=== PATIENT | male | born 1950 | race Caucasian/White ===

== ENCOUNTER 2023-11-26 11:37 | Outpatient (REF) | payer MEDICARE, SELFPAY | END 2023-11-26 11:38 | disposition home or self-care (01) | LOC: HO.BBR 11:37 | PROVIDERS: PCP Nurse Practitioner Family; Visit Provider Urology | DX: D75.1 Secondary polycythemia (principal) | CPT/HCPCS: 85014; 85018; 99195 ==

== ENCOUNTER 2024-02-26 10:04 | Outpatient (REF) | payer MEDICARE, SELFPAY ==
--- OUTSIDE RECORDS SUMMARY | 2024-02-27 00:07 | XMS_ITS ---
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 Medications Medication SIG (Take, Route, Frequency, Duration) Notes Start Date End Date Status Ciclopirox Olamine 0.77 % 1 application Externally Twice a day for 30 days Active Clopidogrel Bisulfate 75 MG TAKE 1 TABLET BY MOUTH EVERY DAY Oral for 30 Days Activ e Atorvastatin Calcium 80 MG TAKE 1 TABLET BY MOUTH EVERY DAY Oral for 90 Days Activ e Valsartan 160 MG Oral for 90 Days Active Ciclopirox Olamine 0.77 % 1 application Externally Twice a day for 30 days Active Venlafaxine HCl ER 37.5 MG Oral for 30 Days Active Testosterone Cypionate 200 MG/ML Intramuscular for 30 Days Ac tive Donepezil HCl 5 MG Oral for 30 Days Active Social History Tobacco Use: Social History Observation Description Date Details (start date - stop date) Never Smoker NA - NA Tobacco Use/Smoking Question Answer Notes Are you a: nonsmoker Additional Findings: Tobacco Non-User Current no n-smoker Alcohol Screen Question Answer Notes Did you have a drink containing alcohol in the p ast year? No Points 0 Interpretation Negative Tobacco use other than smoking: Question Answer Notes Are you an other tobacco user? No Problems Problem Type SNOMED Code ICD Code Onset Dates Problem Status W/U Status Risk Notes Problem Atherosclerosis of [place] arteries of the extremities ([id number]) Atherosclerosis of [place] artery of both lower extremities, with unspecified presence of clinical manifestation (I70.203) Active confirmed Q7(A), Q8(2B), Q9(1B,2 C) Vital Signs Height 3pt72rx in 09/09/2023 Weight 255 lbs 09/09/2023 BMI 36.58 kg/m2 09/09/2023 Blood pressure systolic 130 mm Hg 09/09/19 Blood pressure diastolic 80 mm Hg 024 Procedures Procedure Date Ordered Date Performed Result Body Sit e 06502-DYWDQQZ NAIL, 6 OR MORE 09/09/2023 N/A 12155-Cxwa Destruction, 1-14 09/09/2023 N/A 75475-CCNO SKIN LESIONS, OVER 4 09/09/2023 N/A Encounters Encounter Location Date Provider Diagnosis [facility] [address] [place] [address] 09/09/2023 Mariluz Black Pain of toe of right foot M79.674 ; Onychomycosis B35.1 ; Pain of toe of left foot M79.675 ; Pain in right foot M79.671 ; Verruca B07.9 ; Tinea pedis of both feet B35.3 ; Atherosclerosis of [place] artery of both lower extremities, with unspecified presence of clinical manifestation I70.203 and Tinea unguium B35.1 Assessments Encounter Date Diagnosis (ICD Code) Assessment Notes Treatment Notes Treatment Clinical Notes Section Notes 09/09/2023 Pain of toe of right foot (ICD-10 - M79.674) 09/09/2023 Onychomycosis (ICD-10 - B35.1) 09/09/2023 Pain of toe of left foot (ICD-10 - M79.675) 09/09/2023 Pain in right foot (ICD-10 - M79.671) 09/09/2023 Verruca (ICD-10 - B07.9) 09/09/2023 Tinea pedis of both feet (ICD-10 - B35.3) 09/09/2023 Atherosclerosis of [place] artery of both lower extremities, with unspecified presence of clinical manifestation (ICD-10 - I70.203) 09/09/2023 Tinea unguium (ICD-10 - B35.1) Plan Of Treatment Pending Test Test Name Order Date 68763-HXEVBUV NAIL, 6 OR MORE 09/09/2023 17157-Evjj Destruction, 1-14 09/09/2023 01527-CSUC SKIN LESIONS, OVER 4 09/09/19 Next Appt Details Follow Up: prn, Reason: Provider Name:Mariluz Gomez , 04/09/2024 09:30:00 AM, [address] [place], [address], Procedure Notes * Category Sub-Category Detail Notes Wart Treatment Procedure Verrucae were de brided to pin-point bleeding margins with sterile 15 surgical blade, silver nitrate chemocautery applied, recomm. immune-boosting meds such as zinc, recomm. follow up with topical chemosurgical agents, Pt defers any other forms of tx (93427) , Debride Nail 6-10 Nail debridement Nail debridem ent performed extensively to reduce/remove overall nail length and girth, subungual debris, and necrotic tissue, by manual and electrical means with use of a nail nipper and/or dremel, to more viable healthy nail plate or bed tissue 6-10. Silver nitrate used for any petechial bleeding as necessary. Patient chooses, no pharmaceutical tx (80794) , Nail debridement performed extensively to reduce/remove overall nail length, girth, thickness, subungual debris, and necrotic tissue, by manual and electrical means through the use of a nail nipper and/or dremel, to more viable healthy nail plate or bed tissue 1-5. Silver nitrate used for any petechial bleeding as necessary. Patient chooses, no pharmaceutical tx (91127) Keratoma Treatment Parring or Cutting o f Benign Hyperkeratotic Lesion(s) 59295 ( More than 4 Lesions ) - The Benign hyperkeratotic lesions, as described above were pared, and/or cut utilizing a sterile 15 blade, tissue nippers, and/or dremel, Progress Notes * Avery BLEVINSDOB: [birth year] (73 yo M)Acc No.[id number]:09/09/2023 Progress Note Patient:?Avery Blveins Alec Provider:?Mariluz ADRIAN Gomez :1950???Age:73 Y???Sex:Male Mohan e:09/09/2023 Address:[address] [place] [address] [address] [place] Pcp:Julio Meneses NP Subjective: * Chief Complaints: * ???Skin ProblemAt Risk Footc arePainful Nail(s) aggrevated by shoes and causing difficulty standing/walking. * HPI: ???Painful Nails:?Pt States Last PCP Visit:?Date:?08/08/2023 ???Skin problems:?Nature:?scaling , redness.?Location:?B/L .?Duration:?, several months.?Course:?, improved , at 80 %.?Treatments:?, Medication (Ciclopirox Olamine 0.77 Cream) , admits intermittent adherence to recommended application.?At Risk footcare:?Pt States Last PCP Visit:?Date?08/08/2023 * ROS:?General/Constitutional:?Nausea?denies.?Vomiting?denies.?Hunger Thirst?denies.?Loss appetite?denies.?Chills?denies.?Fatigue?denies.?Fever?denies.?Night Sweats?denies.?Unexplained weight loss?denies.?Unexplained weight gain?denies.?HEENTM:?Dentures?denies.?Dizziness?denies.?Glasses/contacts?admits.?Retinopathy?de nies.?Blurred/double vision?denies.?TMJ?denies.?Discharge/drainage?denies.?Implants?denies.?Sore throat?denies.?Dental implants?denies.?Hard of hearing ?denies.?Difficulty chewing/swallowing/speaking?denies.?Nose bleeds?denies.?Sore mouth?denies.?Respiratory:?On Oxygen?denies.?Pneumonia/pleurisy?denies.?Bronchitis?denies.?Emphysema?denies.?C oughing?denies.?Cough blood?denies.?Shortness of breath?denies.?Wheezing?denies.?Cardiovascular:?Pacemaker?denies.?MVP?denies.?WPW?denies.?CHF?denies.?Heart attack?denies.?Septal defect?denies.?Rapid beat?denies.?Chest pain ?denies.?Atrial Fib.?denies.?Murmur/Palpitations?denies.?Gastrointestinal:?Hemorrhoids?denies.?Stomach/Abdominal pain?denies.?Dark blood stool?denies.?Irritable bowel ?denies.?Constipation?admits.?Diarrhea?denies.?Hematology:?Swelling?denies.?Clots?denies.?Varicose Veins?denies.?Bruising?denies.?Bleeding problem?denies.?Genitourinary:?Blood urine?denies.?Frequent/Painfu/urination/bladder control?denies.?Kidney stones?denies.?Infection (UTI)?denies.?Nephropathy?denies.?sex trans dis (STD)?denies.?Prostate?admits.?Musculoskeletal:?Hammertoes?admits.?Bunions?denies.?Back Pain?denies.?Muscle Cramps/ Resting?denies.?Muscle cramps / walking?denies.?Generalized aches and pains?admits.?Weakness?denies.?Integ.:?Pryor?denies.?Scars?denies.?Corns/calluses?admits.?Ingrown nails?admits.?Painful nails?admits.?Open Sores?denies.?Rashes?denies.?Neurologic:?Difficulty sleeping?denies.?Brain disorder?denies.?Numbness?denies.?Balance trouble?denies.?Confusion?denies.?Fainting/blackouts?denies.?Tingling?denies.?Tr emors?denies.? * Medical History:? * Surgical History:?back surge ry Stent x3 tonsillectomy colonoscopy * Hospitalization/Major Diagno stic Procedure:?[facility]- UTI 07/2023 * Family History:?Mother: dece ased, diagnosed with Unspecified essential hypertension, Other malignant neoplasm of unspecified site.?Father: .? * Social History:?Tobacco Use:?Tobacco Use/Smoking?Are you a:?nonsmoker ?Additional Findings: Tobacco Non-User?Current non-smoker ?Tobacco use other than smoking?Are you an other tobacco user??No ???Drugs/Alcohol:?Drugs?Have you used drugs other than those for medical reasons in the past 12 months??No ?Alcohol Screen?Did you have a drink containing alcohol in the past year??No ?Points?0 ?Interpretation?Negative ???Miscellaneous:?Caffeine: yes, 3-5 cups per day. ?Children: yes, 2. ?no Exercise. ?Marital status: . 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 * Medications:?TakingCiclopiro x Olamine 0.77 % Cream 1 application Externally Twice a dayValsartan 160 MG Tablet Oral Donepezil HCl 5 MG Tablet Oral Testosterone Cypionate 200 MG/ML Solution Intramuscular Venlafaxine HCl ER 37.5 MG Capsule Extended Release 24 Hour Oral Atorvastatin Calcium 80 MG Tablet TAKE 1 TABLET BY MOUTH EVERY DAY Oral Clopidogrel Bisulfate 75 MG Tablet TAKE 1 TABLET BY MOUTH EVERY DAY Oral Ciclopirox Olamine 0.77 % Cream 1 application Externally Twice a dayMedication List reviewed and reconciled with the patientTaking Ciclopirox Olamine 0.77 % Cream 1 application Externally Twice a dayTaking Valsartan 160 MG Tablet Oral Taking Donepezil HCl 5 MG Tablet Oral Taking Testosterone Cypionate 200 MG/ML Solution Intramuscular Taking Venlafaxine HCl ER 37.5 MG Capsule Extended Release 24 Hour Oral Taking Atorvastatin Calcium 80 MG Tablet TAKE 1 TABLET BY MOUTH EVERY DAY Oral Taking Clopidogrel Bisulfate 75 MG Tablet TAKE 1 TABLET BY MOUTH EVERY DAY Oral Taking Ciclopirox Olamine 0.77 % Cream 1 application Externally Twice a dayMedication List reviewed and reconciled with the patient * Allergies:?N.K.D.A.yes[Aller gies Verified] Objective: * Vitals:?Ht: 9je20hx, Wt:255, BMI:36.58, Shoe size: 11EEE, BP:130/80 mm Hg, Ht- cm: 177.8 cm, Wt-k.67 kg. * Examination: ???General Examination: ?GENERAL APPEARANCE:?Reveals a pleasant, alert, well nourished, well- developed, well hydrated individual, who demonstrates proper attention to hygiene/body habitus, and is in no acute distress, Pt serves as own historian for office visit today.?ORIENTED:?person, place, and time.?Dermatologic: ?SKIN FINDINGS:? Skin shows sign(s) of, erythema, scaling, in a moccasin fashion, no fissure(s) present, B/L , Skin exam reveals Keratotic lesion(s) located at, Heel(s), B/L, TA, T5, SUB MTH (s), 1, B/L.?VERRUCA:?Reveals a Single , multi-loculated , mosaically patterned, round, raised, flat-topped, petechial bleeding papule(s), with cauliflower appearance and interruption of skin lines, pain to lateral compression, and size estimated at 1 mm diameter , LEFT ,.?Vascular: ?DP PULSES:?, 1/4, B/L.?PT PULSES:? 0/4, B/L.?CAPILLARY FILL TIME:? delayed, all digits, B/L.?SKIN TEMPERTURE GRADIENT OF THE LOWER EXTERMITIES:? decreased, cool to cool, proximal to distal, B/L.?HAIR GROWTH/TEXTURE/ELASTICITY/TURGOR:? decreased, B/L.?PIGMENTATION:?rubrous , B/L.?EDEMA:?3/4 , non-pitting , B/L , Leg(s) , Ankle(s) , Foot.?CLAUDICATION:?denies, B/L.?REST PAIN:?denies, B/L.?Orthopedic: ?MUSCLE STRENGTH:?5/5 all groups in a symmetrical fashion, B/L.?Nails: ?NAILS are:?Elongated, overgrown, dystrophic, lytic, greater than 3mm thick, discolored and friable with crumbly malodorous subungual debris, with pain on palpation , TA , T1 , T3 , T4 , T5 , T7 , T6 ,?.?Neurological: ?SENSORY:?Neurological exam reveals intact sensorium, pain sensation normal, vibration sensation intact, pinprick sensation is normal in the lower extremities, Pt denies, anesthesia, burning, paresthesia, tingling, B/L.? Assessment: * Assessment: 1.?Pain of toe of right foot - M79.674?2.?Onychomycosis - B35.1 (Primary)?3.?Pain of toe of left foot - M79.675?4.?Pain in right foot - M79.671?5.?Verruca - B07.9?6.?Tinea pedis of both feet - B35.3, Acute problem, Uncomplicated (3),Rx drug management (4)?7.?Atherosclerosis of [place] artery of both lower extremities, with unspecified presence of clinical manifestation - I70.203?8.?Tinea unguium - B35.1? Plan: * Treatment: 2.?Verruca?Procedure: 81627-Hjpc Destruction, 1-14 3.?Atherosclerosis of [place] artery of both lower extremities, with unspecified presence of clinical manifestation?Procedure: 02477-CZYP SKIN LESIONS, OVER 4 * Procedures:?Debride Nail 6-10:?Nail debridement?Nail debridement performed extensively to reduce/remove overall nail length and girth, subungual debris, and necrotic tissue, by manual and electrical means with use of a nail nipper and/or dremel, to more viable healthy nail plate or bed tissue 6-10. Silver nitrate used for any petechial bleeding as necessary. Patient chooses, no pharmaceutical tx (39688) , Nail debridement performed extensively to reduce/remove overall nail length, girth, thickness, subungual debris, and necrotic tissue, by manual and electrical means through the use of a nail nipper and/or dremel, to more viable healthy nail plate or bed tissue 1-5. Silver nitrate used for any petechial bleeding as necessary. Patient chooses, no pharmaceutical tx (57964).?Keratoma Treatment:?Parring or Cutting of Benign Hyperkeratotic Lesion(s)?21396 ( More than 4 Lesions ) - The Benign hyperkeratotic lesions, as described above were pared, and/or cut utilizing a sterile 15 blade, tissue nippers, and/or dremel, ?.?Wart Treatment:?Procedure?Verrucae were debrided to pin-point bleeding margins with sterile 15 surgical blade, silver nitrate chemocautery applied, recomm. immune-boosting meds such as zinc, recomm. follow up with topical chemosurgical agents, Pt defers any other forms of tx (53408) , .? * Procedure Codes:?61600 DEBRI DE NAIL, 6 OR MORE, Modifiers: XS 88489 Wart Destruction, 1-14, Modifiers: XS 83350 TRIM SKIN LESIONS, OVER 4, Modifiers: Q8 * Preventive Medicine:? ??Counseling:?Discussion:?-12: Office or other outpatient visit for the evaluation and management of an established patient, which required a medically appropriate history and/or examination and STRAIGHTFORWARD level of MEDICAL DECISION MAKING, 1 SELF-LIMITED OR MINOR PROBLEM, MINIMAL- NO AMOUNT/COMPLEXITY OF DATA TO BE REVIEWED/ANALYZED, AND MINIMAL RISK OF COMPLICATION/MORBIDITY. The visit on the day of the encounter encompassed interpreting the data and educating the patient as to the nature of their condition, treatment options available according to their individual PMH, meds, allergies, and overall health/living conditions, as well as any potential risks or complications that may occur from a failure to adhere to, and participate in, the recommended course of therapy. The discussion included a complete verbal, and/or written explanation of the examination results, any x-rays taken, the proposed diagnosis, and outline of the treatment plan. A schedule for future care needs was also explained. The patient verbalized an understanding of the instructions at this time and agreed to be an active participant in their treatment. If the patient should think of any questions or concerns after the visit, I have encouraged the patient to call the office.?Tinea Pedis:?Given recent successful results to treatment, The patient is to cont the rx cream as directed.? * Follow Up:?prn * Images: * Sign off status: Completed true * Provider:?Mariluz Gomez DPM Date:?2023 Generated for Rubin lubin/Fazal/Jose L on:?02/27/2024 12:07 AM EST History and Physical Notes * HPI (History of Present Illness) Category Sub-Category Detail Notes Category Not es Painful Nails Pt States Last PCP Visit: Date:: 08/08/2023 Skin problems Nature: scaling , redness Location: B/L Duration: , several months Course: , improved , at 80 % Treatments: , Medication (Ciclop irox Olamine 0.77 Cream) , admits intermittent adherence to recommended application At Risk footcare Pt States Last PCP Visit: Date: Examination Category Sub-Category Detail Notes Category Not es Neurological SENSORY: Neurological exa m reveals intact sensorium, pain sensation normal, vibration sensation intact, pinprick sensation is normal in the lower extremities, Pt denies, anesthesia, burning, paresthesia, tingling, B/L Dermatologic SKIN FINDINGS: Skin shows sign( s) of, erythema, scaling, in a moccasin fashion, no fissure(s) present, B/L , Skin exam reveals Keratotic lesion(s) located at, Heel(s), B/L, TA, T5, SUB MTH (s), 1, B/L ULCER: VERRUCA: Reveals a Single , m ulti-loculated , mosaically patterned, round, raised, flat-topped, petechial bleeding papule(s), with cauliflower appearance and interruption of skin lines, pain to lateral compression, and size estimated at 1 mm diameter , LEFT , Orthopedic MUSCLE STRENGTH: 5/5 all groups in a symm etrical fashion, B/L General Examination GENERAL APPEARANCE: Reveals a pleasant, alert, well nourished, well-developed, well hydrated individual, who demonstrates proper attention to hygiene/body habitus, and is in no acute distress, Pt serves as own historian for office visit today ORIENTED: person, place, and t [place] Vascular DP PULSES(B): , 1/4, B/L PT PULSES(B): 0/4, B/L CAPILLARY FILL TIME: delayed, all digits , B/L TEMPERTURE GRADIENT(C): decreased, cool to cool, proximal to distal, B/L TROPHIC CONDITION-TEXTURE/ELASTICITY/TURGOR/HAIR GROWTH(B): decreased, B/L EDEMA(C): 3/4 , non-pitting , B/L , Leg(s) , Ankle(s) , Foot CLAUDICATION(C): denies, B/L REST PAIN: denies, B/L PIGMENTATION: rubrous , B/L Nails NAILS are: Elongated, overg rown, dystrophic, lytic, greater than 3mm thick, discolored and friable with crumbly malodorous subungual debris, with pain on palpation , TA , T1 , T3 , T4 , T5 , T7 , T6 ,
--- OUTSIDE RECORDS SUMMARY | 2024-02-27 00:07 | XMS_ITS ---
Author Organization [facility] Shayna Mcneill Address [address] [place] [address] Care Team Providers Care Distribution Specialist Name Role Phone Julio Meneses NP Primary Care Provider Unavailab connie Mariluz Gomez Unavailable [phone] Allergies No Known Allergies REASON FOR VISIT At Risk Footcare, Painful Nail(s) aggrevated by shoes and causing difficulty standing/walking., Skin problem(s) Medications Medication SIG (Take, Route, Frequency, Duration) Notes Start Date End Date Status Atorvastatin Calcium 80 MG TAKE 1 TABLET BY MOUTH EVERY DAY Oral for 90 Days Activ e Venlafaxine HCl ER 37.5 MG Oral for 30 Days Active Testosterone Cypionate 200 MG/ML Intramuscular for 30 Days Ac tive Ciclopirox Olamine 0.77 % 1 application Externally Twice a day for 30 days Active Clopidogrel Bisulfate 75 MG TAKE 1 TABLET BY MOUTH EVERY DAY Oral for 30 Days Activ e Donepezil HCl 5 MG Oral for 30 Days Active Valsartan 160 MG Oral for 90 Days Active Ciclopirox Olamine 0.77 % 1 application Externally Twice a day for 30 days Active Social History Tobacco Use: Social History Observation Description Date Details (start date - stop date) Never Smoker NA - NA Tobacco Use/Smoking Question Answer Notes Are you a: nonsmoker Additional Findings: Tobacco Non-User Current no n-smoker Alcohol Screen Question Answer Notes Did you have a drink contain ing alcohol in the past year? Yes How often did you have a dri nk containing alcohol in the past year? Monthly or less (1 point) Points 1 Interpretation Negative Tobacco use other than smoking: Question Answer Notes Are you an other tobacco user? No Vital Signs Height 5ft 10 in in 12/23/2023 Weight 265 lbs 12/23/2023 BMI 38.02 kg/m2 12/23/2023 Procedures Procedure Date Ordered Date Performed Result Body Sit e 61184-EWDNMLB NAIL, 6 OR MORE 12/23/2023 N/A 38407-Anwb Destruction, 1-14 12/23/2023 N/A 23346-LJWK SKIN LESIONS, OVER 4 12/23/2023 N/A Encounters Encounter Location Date Provider Diagnosis [facility] [address] [place] [address] 12/23/2023 Mariluz Gomez Onychomycosis B35.1 ; Verruca B07.9 ; Pain of toe of right foot M79.674 ; Pain of toe of left foot M79.675 ; Pain in right foot M79.671 and Atherosclerosis of big lag[place] artery of both lower extremities, with unspecified presence of clinical manifestation I70.203 Assessments Encounter Date Diagnosis (ICD Code) Assessment Notes Treatment Notes Treatment Clinical Notes Section Notes 12/23/2023 Onychomycosis (ICD-10 - B35.1) 12/23/2023 Verruca (ICD-10 - B07.9) 12/23/2023 Pain of toe of right foot (ICD-10 - M79.674) 12/23/2023 Pain of toe of left foot (ICD-10 - M79.675) 12/23/2023 Pain in right foot (ICD-10 - M79.671) 12/23/2023 Atherosclerosis of big lagoon artery of both lower extremities, with unspecified presence of clinical manifestation (ICD-10 - I70.203) Q7(A), Q8(2B), Q9(1B,2C) Plan Of Treatment Pending Test Test Name Order Date 88847-ZAYDEWF NAIL, 6 OR MORE 12/23/2023 48625-Qejr Destruction, 1-14 12/23/2023 11284-NIRR SKIN LESIONS, OVER 4 12/23/19 24 Next Appt Details Follow Up: prn, Reason: Provider Name:Mariluz Gomez , 04/09/2024 09:30:00 AM, [address] [place] [address], [phone], Procedure Notes * Category Sub-Category Detail Notes Wart Treatment Procedure Verrucae were de brided to pin-point bleeding margins with sterile 15 surgical blade, silver nitrate chemocautery applied, recomm. immune-boosting meds such as zinc, recomm. follow up with topical chemosurgical agents, Pt defers any other forms of tx (33008) , , CIRCULATION: Any more invasive procedure to wart deferred due to circulation risk Debride Nail 6-10 Nail debridement Performance o f this nail treatment by a nonprofessional would put this patients foot and overall health at risk. Therefore, nail debridement was performed extensively to reduce/remove overall nail length, girth, thickness, subungual debris, and necrotic tissue, by manual and/or electrical means through the use of a nail nipper and/or dremel-type head bone grinder, to a more viable healthy nail plate or bed tissue 6-10. Silver nitrate used for any petechial bleeding as necessary. Definitive antifungal treatment options have been reviewed and discussed with the patient. The patient chooses, no pharmaceutical tx - 78643 Keratoma Treatment Parring or Cutting o f Benign Hyperkeratotic Lesion(s) 50823 ( More than 4 Lesions ) - The Benign hyperkeratotic lesions, as described above were pared, and/or cut utilizing a sterile 15 blade, tissue nippers, and/or dremel, Progress Notes * GEN Avery AlecDOB: [birth year] (73 yo M)Acc No.[id number]:12/23/2023 Progress Note Patient:?Avery Fernandes Alec Provider:?Mariluz Gomez DPM :1950???Age:73 Y???Sex:Male Mohan e:12/23/2023 Address:[address] [place] [address] [address], [place] Pcp:Julio Meneses NP Subjective: * Chief Complaints: * ???At Risk FootcarePainful N ail(s) aggrevated by shoes and causing difficulty standing/walking.Skin problem(s) * HPI: ???Painful Nails:?Pt States Last PCP Visit:?Date:?08/08/2023 ???At Risk footcare:?Pt States Last PCP Visit:?Date?08/08/2023 * Medical History:? * Surgical History:?back surge [...] a drink containing alcohol in the past year??Yes ?How often did you have a drink containing alcohol in the past year??Monthly or less (1 point) ?Points?1 ?Interpretation?Negative ???Miscellaneous:?Caffeine: yes, 3-5 cups per day. [...] * Allergies:?N.K.D.A.yes[Aller gies Verified] Objective: * Vitals:?Ht: 5ft 10 in, Wt:26 5, BMI:38.02, Shoe size: 11EEE, Ht-cm: 177.8 cm, Wt- k.2 kg. * Examination: ???Dermatologic: ?SKIN FINDINGS:?Skin exam reveals Keratotic lesion(s) located at, Heel(s), B/L, TA, T5, SUB MTH (s), 1, B/L.?VERRUCA:?Reveals a Single , multi-loculated , mosaically patterned, round, raised, flat-topped, petechial bleeding papule(s), with cauliflower appearance and interruption of skin lines, less pain to lateral compression, and size estimated at 1 mm diameter , LEFT ,.?Vascular: ?DP PULSES(B):?, 1/4, B/L.?PT PULSES(B):? 0/4, B/L.?CAPILLARY FILL TIME:? delayed, all digits, B/L.?TROPHIC CONDITION-TEXTURE/ELASTICITY/TURGOR/HAIR GROWTH(B):? decreased, B/L.?TEMPERTURE GRADIENT(C):? decreased, cool to cool, proximal to distal, B/L.?PIGMENTATION:?rubrous , B/L.?EDEMA(C):?3/4 , non-pitting , B/L , Leg(s) , Ankle(s) , Foot.?CLAUDICATION(C):?denies, B/L.?REST PAIN:?denies, B/L.?Nails: ?NAILS are:?Elongated, overgrown, dystrophic, lytic, greater than 3mm thick, discolored and friable with crumbly malodorous subungual debris, with pain on palpation , , T1 , T3 , T4 , T7 , , T8, T6 .? Assessment: * Assessment: 1.?Verruca - B07.9 (Primary) ?2.?Onychomycosis - B35.1?3.?Pain of toe of right foot - M79.674?4.?Pain of toe of left foot - M79.675?5.?Pain in right foot - M79.671?6.?Atherosclerosis of big lagoon artery of both lower extremities, with unspecified presence of clinical manifestation - I70.203, Q7(A), Q8(2B), Q9(1B,2C)? Plan: * Treatment: 2.?Onychomycosis?Procedure: 27695-YJHXJCA NAIL, 6 OR MORE 3.?Atherosclerosis of big lagoon artery of both lower extremities, with unspecified presence of clinical manifestation?Procedure: 57422-XZYG SKIN LESIONS, OVER 4 * Procedures:?Debride Nail 6-10:?Nail debridement?Performance of this nail treatment by a nonprofessional would put this patients foot and overall health at risk. Therefore, nail debridement was performed extensively to reduce/remove overall nail length, girth, thickness, subungual debris, and necrotic tissue, by manual and/or electrical means through the use of a nail nipper and/or dremel-type head bone grinder, to a more viable healthy nail plate or bed tissue 6-10. Silver nitrate used for any petechial bleeding as necessary. Definitive antifungal treatment options have been reviewed and discussed with the patient. The patient chooses, no pharmaceutical tx - 95475.?Keratoma Treatment:?Parring or Cutting of Benign Hyperkeratotic Lesion(s)?64635 ( More than 4 Lesions ) - [...] Pt defers any other forms of tx (40390) , , CIRCULATION: Any more invasive procedure to wart deferred due to circulation risk.? * Procedure Codes:?78956 DEBRI DE NAIL, 6 OR MORE, Modifiers: XS 92648 Wart Destruction, 1-14, Modifiers: XS 88508 TRIM SKIN LESIONS, OVER 4, Modifiers: Q8 * Follow Up:?prn * Images: * Sign off status: Completed true * Provider:?Mariluz Gomez DPM Date:?2023 Generated for Rubin lubin/Fazal/Joanitting on:?02/27/2024 12:07 AM EST History and Physical Notes * HPI (History of Present Illness) Category Sub-Category Detail Notes Category Not es Painful Nails Pt States Last PCP Visit: Date:: 08/08/2023 At Risk footcare Pt States Last PCP Visit: Date: Examination Category Sub-Category Detail Notes Category Not es Dermatologic SKIN FINDINGS: Skin exam reveal s Keratotic lesion(s) located at, Heel(s), B/L, TA, T5, SUB MTH (s), 1, B/L ULCER: VERRUCA: Reveals a Single , m ulti-loculated , mosaically patterned, round, raised, flat-topped, petechial bleeding papule(s), with cauliflower appearance and interruption of skin lines, less pain to lateral compression, and size estimated at 1 mm diameter , LEFT , Vascular DP PULSES(B): , 1/4, B/L PT [...] subungual debris, with pain on palpation , , T1 , T3 , T4 , T7 , , T8, T6
--- OUTSIDE RECORDS SUMMARY | 2024-02-27 00:07 | XMS_ITS ---
Author Organization [facility] Shayna Mcneill Address [address] [place] [address] Care Team Providers Care Children'S Program Coordinator Name Role Phone Julio Meneses NP Primary Care Provider Unavailab connie Mariluz Gomez Unavailable [phone] Allergies No Known Allergies REASON FOR VISIT Painful nail(s) aggrevated by shoes causing difficulty standing/walking, Skin Problem Medications Medication SIG (Take, Route, Frequency, Duration) Notes Start Date End Date Status Atorvastatin Calcium 80 MG TAKE 1 TABLET BY MOUTH EVERY DAY Oral for 90 Days Activ e Clopidogrel Bisulfate 75 MG TAKE 1 TABLET BY MOUTH EVERY DAY Oral for 30 Days Activ e Valsartan 160 MG Oral for 90 Days Active Ciclopirox Olamine 0.77 % 1 application Externally Twice a day for 30 days Active Ciclopirox Olamine 0.77 % 1 application Externally Twice a day for 30 days Active Testosterone Cypionate 200 MG/ML Intramuscular for 30 Days Ac tive Donepezil HCl 5 MG Oral for 30 Days Active Venlafaxine HCl ER 37.5 MG Oral for 30 Days Active Social [...] tobacco user? No Vital Signs Height 5ft 9in in 05/27/2023 Weight 250 lbs 05/27/2023 BMI 36.91 kg/m2 05/27/2023 Procedures Procedure Date Ordered Date Performed Result Body Sit e 43149-HYFDLDI NAIL, 6 OR MORE 05/27/2023 N/A 75850-Inhd Destruction, 1-14 05/27/2023 N/A Encounters Encounter Location Date Provider Diagnosis [facility] [address] [address] 05/27/2023 Mariluz Gomez Pain of toe of right foot M79.674 ; Onychomycosis B35.1 ; Pain of toe of left foot M79.675 ; Pain in right foot M79.671 ; Verruca B07.9 and Tinea pedis of both feet B35.3 Assessments Encounter Date Diagnosis (ICD Code) Assessment Notes Treatment Notes Treatment Clinical Notes Section Notes 05/27/2023 Pain of toe of right foot (ICD-10 - M79.674) 05/27/2023 Onychomycosis (ICD-10 - B35.1) 05/27/2023 Pain of toe of left foot (ICD-10 - M79.675) 05/27/2023 Pain in right foot (ICD-10 - M79.671) 05/27/2023 Verruca (ICD-10 - B07.9) 05/27/2023 Tinea pedis of both feet (ICD-10 - B35.3) Plan Of Treatment Medication Medication Name Sig Start Date Stop Date Notes Ciclopirox Olamine 0.77 % 1 application Externally Twice a day for 30 days Pending Test Test Name Order Date [id number]-QPAEAWT NAIL, 6 OR MORE 05/27/2023 07382-Oowe Destruction, 1-14 05/27/2023 Next Appt Details Follow Up: prn, Reason: Provider Name:Mariluz Gomez , 04/09/2024 09:30:00 AM, [address] [place] [address], [phone], Procedure Notes * Category Sub-Category Detail Notes Wart Treatment Procedure Verrucae were de brided to pin-point bleeding margins with sterile 15 surgical blade, silver nitrate chemocautery applied, recomm. immune-boosting meds such as zinc, recomm. follow up with topical chemosurgical agents, Pt defers any other forms of tx (35209) , Debride Nail 6-10 Nail debridement Nail debridem ent performed extensively to reduce/remove overall nail length and girth, subungual debris, and necrotic tissue, by manual and electrical means with use of a nail nipper and/or dremel, to more viable healthy nail plate or bed tissue 6-10. Silver nitrate used for any petechial bleeding as necessary. Patient chooses, no pharmaceutical tx (82936) Progress Notes * Avery BLEVINSDOB: [birth year] (73 yo M)Acc No.[id number]:05/27/2023 Progress Note Patient:?Avery Blevins Provider:?Mariluz Gomez DPM :1950???Age:73 Y???Sex:Male Mohan e:05/27/2023 Address:[address] [place] [address], [facility], [id number] Pcp:Julio Meneses NP Subjective: * Chief Complaints: * ???Painful nail(s) aggrevate d by shoes causing difficulty standing/walkingSkin Problem * HPI: ???Painful Nails:?Pt States Last PCP Visit:?Date:?03/04/2023 ???Skin problems:?Nature:?scaling , redness.?Location:?B/L .?Duration:?several days.?Course:?worse.?Treatments:?none.? * ROS:?General/Constitutional:?Nausea?denies.?Vomiting?denies.?Hunger Thirst?denies.?Loss appetite?denies.?Chills?denies.?Fatigue?denies.?Fever?denies.?Night Sweats?denies.?Unexplained weight loss?denies.?Unexplained [...] x3 tonsillectomy colonoscopy * Hospitalization/Major Diagno stic Procedure:?Denies Past Hospitalization * Family History:?Mother: dece ased, diagnosed with [...] 1 TABLET BY MOUTH EVERY DAY Oral Medication List reviewed and reconciled with the patientTaking [...] 1 TABLET BY MOUTH EVERY DAY Oral Medication List reviewed and reconciled with the patient * Allergies:?N.K.D.A.yes[Aller gies Verified] Objective: * Vitals:?Ht: 5ft 9in, Wt:250, BMI:36.91, Shoe size:11EEE. * Examination: ???Nails: ?NAILS are:?Elongated, overgrown, dystrophic, lytic, greater than 3mm thick, discolored and friable with crumbly malodorous subungual debris, with pain on palpation , TA , T1 , T3 , T4 , T5 , T7 , T6.?Dermatologic: ?SKIN FINDINGS:? Skin shows sign(s) of, erythema, scaling, in a moccasin fashion, no fissure(s) present, B/L.?VERRUCA:?Reveals a Single , multi-loculated , mosaically patterned, round, raised, flat-topped, petechial bleeding papule(s), with cauliflower appearance and interruption of skin lines, pain to lateral compression, and size estimated at 2 mm diameter , LEFT ,.? Assessment: * Assessment: 1.?Pain of toe of right foot - M79.674?2.?Onychomycosis - B35.1 (Primary)?3.?Pain of toe of left foot - M79.675?4.?Pain in right foot - M79.671?5.?Verruca - B07.9?6.?Tinea pedis of both feet - B35.3, Acute problem, Uncomplicated (3),Rx drug management (4)? Plan: * Treatment: 2.?Verruca?Procedure: 44129-Mehy Destruction, 1-14 3.?Tinea pedis of both feet? Start Ciclopirox Olamine Cream, 0.77 %, 1 application, Externally, Twice a day, 30 days, 60, Refills 2.?? * Procedures:?Debride Nail 6-10:?Nail debridement?Nail debridement performed extensively to reduce/remove overall nail length and girth, subungual debris, and necrotic tissue, by manual and electrical means with use of a nail nipper and/or dremel, to more viable healthy nail plate or bed tissue 6-10. Silver nitrate used for any petechial bleeding as necessary. Patient chooses, no pharmaceutical tx (82095).?Wart Treatment:?Procedure?Verrucae were debrided to pin-point bleeding margins with sterile 15 surgical blade, silver nitrate chemocautery applied, recomm. immune-boosting meds such as zinc, recomm. follow up with topical chemosurgical agents, Pt defers any other forms of tx (75724) , .? * Procedure Codes:?36021 DEBRI DE NAIL, 6 OR MORE, Modifiers: XS 03986 Wart Destruction, -14, Modifiers: XS * Preventive Medicine:? ??Counseling:?Discussion:?-13: Office or other outpatient visit for the evaluation and management of an established patient, which required a medically appropriate history and/or examination and LOW level of DECISION MAKING for: 1 STABLE ACUTE UNCOMPLICATED PROBLEM, 2 OR MORE MINOR PROBLEMS, OR 1 STABLE CHRONIC PROBLEM, THAT POSE(S) A LOW RISK FOR MORBIDITY/MORTALITY. The visit on the day of the [...] encouraged the patient to call the office.?Tinea Pedis:?The patient was counseled on the diagnosis, potential etiologies, and treatment options for their skin condition. We discussed the risks and benefits of each option from performing no treatment, to utilizing OTC topical skin creams, prescription topical creams, customized compounded topical medications, and, if necessary, to utilize oral antifungal therapy. We discussed the advantages and disadvantages of each possible treatment and importance for adherence to all the recommended therapies for optimum success and avoid potential complications such as open sore/infection/possible hospitalization. We discussed the potential effectiveness of each topical preparation as well as each ones possible side effects and/or patient medication interactions if oral therapy is selected. Patient questions re: the advantages and disadvantages of each treatment choice, medication use/dosage, successful outcomes, and application consistency were reviewed and the patient verbalized that all answers were clearly understood. The patient was told they can help alleviate symptoms by utilizing moisture absorbant innersoles with activated charcoal and baking soda, applying antifungal sprays daily, aerating toe web spaces at night by putting cotton or lambs wool between the toes, alternating shoe gear daily if possible so they can dry out, changing socks at least once during the day, wearing well-ventilated shoes or sandals. The patient has decided to apply antifungal skin creams to their feet as directed. Rx was sent to their pharmacy at the time of visit.? * Follow Up:?prn * Images: * Sign off status: Completed true * Provider:?Mariluz Gomez DPM Date:?2023 Generated for Rubin lubin/Fazal/Jose L on:?02/27/2024 12:07 AM EST History and Physical Notes * HPI (History of Present Illness) Category Sub-Category Detail Notes Category Not es Painful Nails Pt States Last PCP Visit: Date:: 03/04/2023 Skin problems Nature: scaling , redness Location: B/L Duration: several days Course: worse Treatments: none Examination Category Sub-Category Detail Notes Category Not es Dermatologic SKIN FINDINGS: Skin shows sign( s) of, erythema, scaling, in a moccasin fashion, no fissure(s) present, B/L ULCER: VERRUCA: Reveals a Single , m ulti-loculated , mosaically patterned, round, raised, flat-topped, petechial bleeding papule(s), with cauliflower appearance and interruption of skin lines, pain to lateral compression, and size estimated at 2 mm diameter , LEFT , Nails NAILS are: Elongated, overg rown, dystrophic, lytic, greater than 3mm thick, discolored and friable with crumbly malodorous subungual debris, with pain on palpation , TA , T1 , T3 , T4 , T5 , T7 , T6
--- OUTSIDE RECORDS SUMMARY | 2024-02-27 00:08 | XMS_ITS | Patient Health Record ---
Author Organization [facility] Beléntyra Mcneill Address [address] [place] [address] Care Team Providers Care Stone Hand Name Role Phone Julio Meneses NP Primary Care Provider Unavailab connie Mariluz Gomez Unavailable [phone] Allergies No Known Allergies Reason For Referral No Information Medications Medication SIG (Take, Route, Frequency, Duration) Notes Start Date End Date Status Atorvastatin Calcium 80 MG TAKE 1 TABLET BY MOUTH EVERY DAY Oral for 90 Days Activ e Venlafaxine HCl ER 37.5 MG Oral for 30 Days Active Testosterone Cypionate 200 MG/ML Intramuscular for 30 Days Ac tive Donepezil HCl 5 MG Oral for 30 Days Active Ciclopirox Olamine 0.77 % 1 [...] Problem Status W/U Status Risk Notes Problem Plantar wart (25145720) Plantar wart (B07.0) Active confirmed Problem Atherosclerosis of barrow arteries of the extremities (242314541724876) Atherosclerosis of barrow artery of both lower extremities, with unspecified presence of clinical manifestation (I70.203) Active confirmed Q7(A), Q8(2B), Q9(1B,2 C) Problem 28202650907426397 Ulcer of left midfoot limited to breakdown of skin (L97.421) Active confirmed Vital Signs Blood pressure diastolic 80 mm Hg 09/09/2023 Height 5ft 10 in in 12/23/2023 Blood pressure systolic 130 mm Hg 09/09/2023 Weight 265 lbs 12/23/2023 BMI 38.02 kg/m2 12/23/2023 Procedures Procedure Date Ordered Date Performed Result Body Sit e 97937-MRLDIUU NAIL, 6 OR MORE 05/27/2023 N/A 65580-Hzfq Destruction, 1-14 05/27/2023 N/A 91014-VQETGJA NAIL, 6 OR MORE 09/09/2023 N/A 89677-Cafc Destruction, 1-14 09/09/2023 N/A 96603-WRIZ SKIN LESIONS, OVER 4 09/09/2023 N/A 02546-SFYRHHC NAIL, 6 OR MORE 12/23/2023 N/A 64079-Wazl Destruction, 1-14 12/23/2023 N/A 53914-QIVI SKIN LESIONS, OVER 4 12/23/2023 N/A Encounters Encounter Location Date Provider Diagnosis [facility] [address] [address] 05/27/2023 Mariluz Black Pain of toe of right foot M79.674 ; Onychomycosis B35.1 ; Pain of toe of left foot M79.675 ; Pain in right foot M79.671 ; Verruca B07.9 and Tinea pedis of both feet B35.[address] [facility] [address] 09/09/2023 Mariluz Black Pain of toe of right foot M79.674 ; Onychomycosis B35.1 ; Pain of toe of left foot M79.675 ; Pain in right foot M79.671 ; Verruca B07.9 ; Tinea pedis of both feet B35.3 ; Atherosclerosis of barrow artery of both lower extremities, with unspecified presence of clinical manifestation I70.203 and Tinea unguium B35.1 [facility] [place] [place] [address] 12/23/2023 Mariluz Black Onychomycosis B35.1 ; Verruca B07.9 ; Pain of toe of right foot M79.674 ; Pain of toe of left foot M79.675 ; Pain in right foot M79.671 and Atherosclerosis of barrow artery of both lower extremities, with unspecified presence of clinical manifestation I70.203 Assessments Encounter Date Diagnosis (ICD Code) Assessment Notes Treatment Notes Treatment Clinical Notes Section Notes 05/27/2023 Pain of toe of right foot (ICD-10 - M79.674) 09/09/2023 Pain of toe of right foot (ICD-10 - M79.674) 12/23/2023 Verruca (ICD-10 - B07.9) 12/23/2023 Onychomycosis (ICD-10 - B35.1) 12/23/2023 Pain of toe of right foot (ICD-10 - M79.674) 09/09/2023 Onychomycosis (ICD-10 - B35.1) 05/27/2023 Onychomycosis (ICD-10 - B35.1) 05/27/2023 Pain of toe of left foot (ICD-10 - M79.675) 09/09/2023 Pain of toe of left foot (ICD-10 - M79.675) 05/27/2023 Pain in right foot (ICD-10 - M79.671) 09/09/2023 Pain in right foot (ICD-10 - M79.671) 12/23/2023 Pain of toe of left foot (ICD-10 - M79.675) 12/23/2023 Pain in right foot (ICD-10 - M79.671) 09/09/2023 Verruca (ICD-10 - B07.9) 05/27/2023 Verruca (ICD-10 - B07.9) 05/27/2023 Tinea pedis of both feet (ICD-10 - B35.3) 09/09/2023 Tinea pedis of both feet (ICD-10 - B35.3) 12/23/2023 Atherosclerosis of barrow artery of both lower extremities, with unspecified presence of clinical manifestation (ICD-10 - I70.203) Q7(A), Q8(2B), Q9(1B,2C) 09/09/2023 Atherosclerosis of barrow artery of both lower extremities, with unspecified presence of clinical manifestation (ICD-10 - I70.203) 09/09/2023 Tinea unguium (ICD-10 - B35.1) Plan Of Treatment Pending Test Test Name Order Date 22469-QXKMSRB NAIL, 6 OR MORE 11/08/2022 30683-OPCPFCZ NAIL, 6 OR MORE 02/14/2023 15896-PYAKAIB NAIL, 6 OR MORE 05/27/2023 26719-WFLLLSF NAIL, 6 OR MORE 09/09/2023 32944-VMFBVRM NAIL, 6 OR MORE 12/23/2023 87356-Iwkb Destruction, 1-14 09/09/2023 61428-Wpkw Destruction, 1-14 12/23/2023 83876-Eney Destruction, 1-14 05/27/2023 98192-Ntdi Destruction, 1-14 11/08/2022 28737-Jorn Destruction, 1-14 02/14/2023 01931-ANEZ SKIN LESIONS, OVER 4 12/23/19 22037-OFIH SKIN LESIONS, OVER 4 09/09/19 Next Appt Details Provider Name:Mariluz Gomez , 04/09/2024 09:30:00 AM, [address] [place] [address], [phone], Insurance Providers Payer Name Payer Address Payer Phone Subscriber Number Group Number Insured Name Patient Relationship to Insured Coverage Start Date Coverage End Date Medicare [employer] [address] [place] [address] [id number] Avery Fernandes Self - patient is the insured [employer] [address] [place] [address] [id number] Avery Fernandes Self - patient is the insured Medical (General) History Medical History History ICD Code Cancer Depression High blood pressure Polymyalgia rheumatica Surgical History Surgery Date(Month/Year) back surgery Stent x3 tonsillectomy colonoscopy Hospitalization History Reason Date(Month/Year) [facility]- UTI 07/2023
--- OUTSIDE RECORDS SUMMARY | 2024-02-27 00:08 | XMS_ITS | Clinical Summary ---
Author Organization Unknown Care Team Providers Care Engineering Technical Specialist Name Role Phone TATIANA DEMOLITION ENGINEER, JONATHAN Unavailable Unavailable AMY RN, IFTIKHAR Unavailable Unavailable CLOONAAlyssa CANT GANG SAWYER, CAROLINA Unavailable Unavailable MICHAEL PT, RUBIN Unavailable Unavailable JONES SHELL FREEZING MACHINE OPERATOR, CHI Unavailable Unavailable [place]FF[place] OT, BOO Unavailable Unavailable [facility], [place] Unavailable Unavailable Payers Payer Name Policy Type Policy Number Effective Date Expira tion Date MEDICARE.NGS.PDGM [id number] Problems Condition Name Condition Details Condition Category Status Onset Date Resolution Date Last Treatment Date Treating Clinician Comments URINARY TRACT INFECTION, SITE NOT SPECIFIED Active 07-04 00:00: 00 METABOLIC ENCEPHALOPAT HY Active 07-04 00:00: 00 MILD COGNITIVE IMPAIRMENT OF UNCERTAIN OR UNKNOWN ETIOLOGY Active 07-04 00:00: 00 ATHSCL HEART DISEASE OF [place] CORONARY ARTERY W/O ANG PCTRS Active 03-18 00:00: 00 ESSENTIAL (PRIMARY) HYPERTENSION Active 03-18 00:00: 00 ANXIETY DISORDER, UNSPECIFIED Active 03-18 00:00: 00 DEPRESSION, UNSPECIFIED Active 03-18 00:00: 00 OBSTRUCTIVE SLEEP APNEA (ADULT) (PEDIATRIC) Active 03-18 00:00: 00 TESTICULAR HYPOFUNCTION Active 03-18 00:00: 00 MORBID (SEVERE) OBESITY DUE TO EXCESS CALORIES Active 03-18 00:00: 00 HYPERLIPIDEM IA, UNSPECIFIED Active 03-18 00:00: 00 HISTORY OF FALLING Active 03-18 00:00: 00 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 (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) USE OF ANTITHROMBOT ICS/ANTIPLAT ELETS Active 03-18 00:00: 00 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 ANALYST (CURRENT) USE OF OPIATE ANALGESIC Active 03-18 00:00: 00 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 ANALYST (CURRENT) USE OF ANTIBIOTICS Active 03-18 00:00: 00 PRSNL HX OF TIA (TIA), AND CEREB INFRC W/O RESID DEFICITS Active 03-18 00:00: 00 BODY MASS INDEX [BMI] 35.0-35.9, ADULT Active 03-18 00:00: 00 PERSONAL HISTORY OF MALIGNANT NEOPLASM OF PROSTATE Active 03-18 00:00: 00 ACQUIRED ABSENCE OF OTHER GENITAL ORGAN(S) Active 03-18 00:00: 00 PRESENCE OF CORONARY ANGIOPLASTY IMPLANT AND GRAFT Active 03-18 00:00: 00 ACQUIRED ABSENCE OF OTHER SPECIFIED PARTS OF DIGESTIVE TRACT Active 03-18 00:00: 00 Allergies, Adverse Reactions, Alerts Allergy Name Allergy Type Status Severity Reaction(s) Onset Date Inactive Date Treating Clinician Comments NO KNOWN ALLERGIES Propensity to adverse reactions Active 07-02 11:38: 10 Medications Ordered Medication Name Filled Medication Name Start Date Stop Date Current Medication? Ordering Clinician Indication Dosage Frequency Signature (SIG) Comments Components amlodipine 10 mg tablet 06-18 00:00: 00 Yes [id number] HTN 1 tablet DAILY 1 tablet DAILY (route: oral) Med Classific ation: Cardiovas cular Therapy Agents donepezil 5 mg tablet 06-17 00:00: 00 07-04 00:00 :00 No [id number] Per instruc tions EVERYDAY AT BEDTIME Per instructio ns EVERYDAY AT BEDTIME (route: oral) Med Classific ation: Cognitive Disorder Therapy trazodone 50 mg tablet 06-17 00:00: 00 Yes [id number] SLEEP 1 tablet BEDTIME 1 tablet BEDTIME (route: oral) Med Classific ation: Central Nervous System Agents metoprolol succinate ER 25 mg tablet,exte nded release 24 hr 06-06 00:00: 00 Yes [id number] HTN 1 tablet EVERY DAY 1 tablet EVERY DAY (route: oral) Med Classific ation: Cardiovas cular Therapy Agents valsartan 160 mg tablet 06-06 00:00: 00 Yes [id number] HTN 1 tablet BEDTIME 1 tablet BEDTIME (route: oral) Med Classific ation: Cardiovas cular Therapy Agents venlafaxine 37.5 mg tablet 06-04 00:00: 00 07-04 00:00 :00 No [id number] Per instruc tions TWICE A DAY AFTER 1 WEEK DAILY Per instructio ns TWICE A DAY AFTER 1 WEEK DAILY (route: oral) Med Classific ation: Central Nervous System Agents clopidogrel 75 mg tablet 06-02 00:00: 00 Yes [id number] THROMBOSIS PROPHYLAXIS 1 tablet EVERY DAY 1 tablet EVERY DAY (route: oral) Med Classific ation: Hematolog ical Agents acetaminoph en 325 mg tablet 07-04 00:00: 00 Yes [id number] PAIN 2 tablet EVERY 4 HOURS 2 tablet EVERY 4 HOURS (route: oral) Med Classific ation: Analgesic , Anti-infl ammatory or Antipyret ic atorvastati n 80 mg tablet 07-04 00:00: 00 Yes [id number] HYPERLIPIDE MEENA 1 tablet BEDTIME 1 tablet BEDTIME (route: oral) Med Classific ation: Cardiovas cular Therapy Agents ciclopirox 0.77 % topical cream 07-04 00:00: 00 Yes [id number] ITCHY FEET 1 inch 2 TIMES DAILY 1 inch 2 TIMES DAILY (route: topical) Med Classific ation: Dermatolo gical Cranberry TABLET 1 07-04 00:00: 00 Yes [id number] PREVENT UTI 450 mg DAILY 450 mg DAILY (route: BY MOUTH) Med Classific ation: MISCELLAN EOUS HERBS AND SUPPLEMEN TS Depo-Testos terone 200 mg/mL intramuscul ar oil 07-04 00:00: 00 Yes [id number] HYPOGONADIM 0.75 mL DIRECTED 0.75 mL DIRECTED (route: intramuscu lar) Med Classific ation: Endocrine donepezil 10 mg tablet 07-04 00:00: 00 Yes [id number] DEPRESSION 1 tablet BEDTIME 1 tablet BEDTIME (route: oral) Med Classific ation: Cognitive Disorder Therapy sulfamethox azole 800 mg-trimetho prim 160 mg tablet 07-04 00:00: 00 07-06 23:59 :00 No [id number] UTI 1 tablet DAILY 1 tablet DAILY (route: oral) Med Classific ation: Anti-Infe ctive Agents venlafaxine ER 150 mg capsule,ext ended release 24 hr 07-04 00:00: 00 Yes [id number] DEPRESSION 1 capsule DAILY 1 capsule DAILY (route: oral) Med Classific ation: Central Nervous System Agents bupropion HCl 75 mg tablet 08-15 00:00: 00 Yes [id number] ANTIDEPRESS ANT Per instruc tions DAILY Per instructio ns DAILY (route: oral) Med Classific ation: Central Nervous System Agents Vital Signs Vital Name Observation Time Observation Value Commen ts Temperature 2023-08-30 09:10:00.000 97.6 [degF] Temperature 2023-08-23 09:10:00.000 97.6 [degF] Temperature 2023-08-16 14:25:00.000 97.6 [degF] Temperature 2023-08-13 12:32:00.000 98 [degF] Temperature 2023-08-13 11:13:00.000 97.5 [degF] Temperature 2023-08-09 09:48:00.000 97.9 [degF] Temperature 2023-08-02 09:20:00.000 97.6 [degF] Temperature 2023-07-31 13:27:00.000 97.7 [degF] Temperature 2023-07-30 08:23:00.000 97.6 [degF] Temperature 2023-07-26 11:57:00.000 97.2 [degF] Temperature 2023-07-26 09:50:00.000 97.8 [degF] Temperature 2023-07-24 12:13:00.000 97.7 [degF] Temperature 2023-07-22 09:56:00.000 97.9 [degF] Temperature 2023-07-19 11:40:00.000 97.7 [degF] Temperature 2023-07-19 09:13:00.000 98 [degF] Temperature 2023-07-18 15:01:00.000 97.1 [degF] Temperature 2023-07-15 11:23:00.000 97.1 [degF] Temperature 2023-07-12 11:50:00.000 97.2 [degF] Temperature 2023-07-12 09:02:00.000 97.9 [degF] Temperature 2023-07-09 11:31:00.000 98.6 [degF] Temperature 2023-07-08 08:38:00.000 97.2 [degF] Temperature 2023-07-05 12:35:00.000 96.5 [degF] BMI (%) 2023-07-05 12:35:00.000 37 kg/m2 Height 2023-07-05 12:35:00.000 69 [in_us] Pulse 2023-08-30 09:10:00.000 82 /min Pulse 2023-08-23 09:10:00.000 65 /min Pulse 2023-08-16 14:25:00.000 77 /min Pulse 2023-08-13 12:32:00.000 79 /min Pulse 2023-08-13 11:13:00.000 90 /min Pulse 2023-08-09 09:48:00.000 71 /min Pulse 2023-08-02 09:20:00.000 80 /min Pulse 2023-07-31 13:27:00.000 83 /min Pulse 2023-07-30 08:23:00.000 78 /min Pulse 2023-07-26 11:57:00.000 74 /min Pulse 2023-07-26 09:50:00.000 92 /min Pulse 2023-07-24 12:13:00.000 74 /min Pulse 2023-07-22 09:56:00.000 80 /min Pulse 2023-07-19 11:40:00.000 74 /min Pulse 2023-07-19 09:13:00.000 63 /min Pulse 2023-07-18 15:01:00.000 96 /min Pulse 2023-07-15 11:23:00.000 71 /min Pulse 2023-07-12 11:50:00.000 74 /min Pulse 2023-07-12 09:02:00.000 97 /min Pulse 2023-07-09 11:31:00.000 83 /min Pulse 2023-07-08 08:38:00.000 75 /min Pulse 2023-07-05 12:35:00.000 72 /min O2 Saturation (%) 2023-08-30 09:10:00.000 96 % O2 Saturation (%) 2023-08-23 09:10:00.000 97 % O2 Saturation (%) 2023-08-16 14:25:00.000 95 % O2 Saturation (%) 2023-08-13 12:32:00.000 96 % O2 Saturation (%) 2023-08-13 11:13:00.000 97 % O2 Saturation (%) 2023-08-09 09:48:00.000 97 % O2 Saturation (%) 2023-08-02 09:23:00.000 96 % O2 Saturation (%) 2023-07-31 13:27:00.000 97 % O2 Saturation (%) 2023-07-30 08:25:00.000 96 % O2 Saturation (%) 2023-07-26 09:50:00.000 95 % O2 Saturation (%) 2023-07-24 12:13:00.000 92 % O2 Saturation (%) 2023-07-22 09:56:00.000 97 % O2 Saturation (%) 2023-07-19 11:41:00.000 97 % O2 Saturation (%) 2023-07-19 09:13:00.000 97 % O2 Saturation (%) 2023-07-18 15:01:00.000 97 % O2 Saturation (%) 2023-07-12 11:52:00.000 97 % O2 Saturation (%) 2023-07-12 09:02:00.000 96 % O2 Saturation (%) 2023-07-09 11:31:00.000 93 % O2 Saturation (%) 2023-07-08 08:39:00.000 97 % O2 Saturation (%) 2023-07-05 12:35:00.000 97 % Respirations 2023-08-30 09:10:00.000 18 /min Respirations 2023-08-23 09:10:00.000 18 /min Respirations 2023-08-16 14:25:00.000 18 /min Respirations 2023-08-13 12:32:00.000 16 /min Respirations 2023-08-13 11:13:00.000 18 /min Respirations 2023-08-09 09:48:00.000 18 /min Respirations 2023-08-02 09:20:00.000 18 /min Respirations 2023-07-31 13:27:00.000 18 /min Respirations 2023-07-30 08:23:00.000 18 /min Respirations 2023-07-26 11:57:00.000 18 /min Respirations 2023-07-26 09:50:00.000 18 /min Respirations 2023-07-24 12:13:00.000 18 /min Respirations 2023-07-22 09:56:00.000 16 /min Respirations 2023-07-19 11:40:00.000 18 /min Respirations 2023-07-19 09:13:00.000 18 /min Respirations 2023-07-18 15:01:00.000 18 /min Respirations 2023-07-15 11:23:00.000 18 /min Respirations 2023-07-12 11:50:00.000 18 /min Respirations 2023-07-12 09:02:00.000 18 /min Respirations 2023-07-09 11:31:00.000 18 /min Respirations 2023-07-08 08:38:00.000 18 /min Respirations 2023-07-05 12:35:00.000 18 /min Weight (lbs) 2023-07-05 12:35:00.000 252 [lb_av] Systolic Blood Pressure 2023-08-30 09:10:00.000 130 mm [Hg] Systolic Blood Pressure 2023-08-23 09:10:00.000 118 mm [Hg] Systolic Blood Pressure 2023-08-16 14:25:00.000 148 mm [Hg] Systolic Blood Pressure 2023-08-13 12:32:00.000 124 mm [Hg] Systolic Blood Pressure 2023-08-13 11:13:00.000 136 mm [Hg] Systolic Blood Pressure 2023-08-09 09:48:00.000 118 mm [Hg] Systolic Blood Pressure 2023-08-02 09:20:00.000 130 mm [Hg] Systolic Blood Pressure 2023-07-31 13:27:00.000 126 mm [Hg] Systolic Blood Pressure 2023-07-30 08:23:00.000 136 mm [Hg] Systolic Blood Pressure 2023-07-26 11:57:00.000 126 mm [Hg] Systolic Blood Pressure 2023-07-26 09:50:00.000 140 mm [Hg] Systolic Blood Pressure 2023-07-24 12:13:00.000 130 mm [Hg] Systolic Blood Pressure 2023-07-22 09:56:00.000 140 mm [Hg] Systolic Blood Pressure 2023-07-19 11:40:00.000 116 mm [Hg] Systolic Blood Pressure 2023-07-19 09:13:00.000 140 mm [Hg] Systolic Blood Pressure 2023-07-18 15:01:00.000 128 mm [Hg] Systolic Blood Pressure 2023-07-15 11:23:00.000 120 mm [Hg] Systolic Blood Pressure 2023-07-12 11:50:00.000 108 mm [Hg] Systolic Blood Pressure 2023-07-12 09:02:00.000 142 mm [Hg] Systolic Blood Pressure 2023-07-09 11:31:00.000 122 mm [Hg] Systolic Blood Pressure 2023-07-08 08:38:00.000 118 mm [Hg] Systolic Blood Pressure 2023-07-05 12:35:00.000 112 mm [Hg] Diastolic Blood Pressure 2023-08-30 09:10:00.000 82 mm [Hg] Diastolic Blood Pressure 2023-08-23 09:10:00.000 80 mm [Hg] Diastolic Blood Pressure 2023-08-16 14:25:00.000 80 mm [Hg] Diastolic Blood Pressure 2023-08-13 12:32:00.000 80 mm [Hg] Diastolic Blood Pressure 2023-08-13 11:13:00.000 78 mm [Hg] Diastolic Blood Pressure 2023-08-09 09:48:00.000 78 mm [Hg] Diastolic Blood Pressure 2023-08-02 09:20:00.000 84 mm [Hg] Diastolic Blood Pressure 2023-07-31 13:27:00.000 80 mm [Hg] Diastolic Blood Pressure 2023-07-30 08:23:00.000 78 mm [Hg] Diastolic Blood Pressure 2023-07-26 11:57:00.000 74 mm [Hg] Diastolic Blood Pressure 2023-07-26 09:50:00.000 88 mm [Hg] Diastolic Blood Pressure 2023-07-24 12:13:00.000 84 mm [Hg] Diastolic Blood Pressure 2023-07-22 09:56:00.000 80 mm [Hg] Diastolic Blood Pressure 2023-07-19 11:40:00.000 78 mm [Hg] Diastolic Blood Pressure 2023-07-19 09:13:00.000 74 mm [Hg] Diastolic Blood Pressure 2023-07-18 15:01:00.000 68 mm [Hg] Diastolic Blood Pressure 2023-07-15 11:23:00.000 80 mm [Hg] Diastolic Blood Pressure 2023-07-12 11:50:00.000 68 mm [Hg] Diastolic Blood Pressure 2023-07-12 09:02:00.000 80 mm [Hg] Diastolic Blood Pressure 2023-07-09 11:31:00.000 84 mm [Hg] Diastolic Blood Pressure 2023-07-08 08:38:00.000 66 mm [Hg] Diastolic Blood Pressure 2023-07-05 12:35:00.000 70 mm [Hg] Plan of Treatment Planned Activity Planned Date Details Comments Future Scheduled Test RN TO OBSE RVE, ASSESS, EVALUATE, AND DEVELOP AN INDIVIDUALIZED PLAN OF CARE. AGENCY MAY ACCEPT ORDERS FROM CONSULTING PHYSICIANS. REGISTERED NURSE TO OBSERVE AND ASSESS/LICENSED PRACTICAL NURSE TO OBSERVE FOR RISK FOR FALLS AND INSTRUCT IN FALL PREVENTION, HOME SAFETY, MEDICATION MANAGEMENT, INFECTION PREVENTION, AND NUTRITION MANAGEMENT. REGISTERED NURSE/LICENSED PRACTICAL NURSE MAY PERFORM O2 SATURATION LEVEL ON ADMISSION AND FOR RN TO ASSESS/CANT GANG SAWYER TO OBSERVE PATIENT, WITH NOTIFICATION TO THE PHYSICIAN IF SATURATION IS 90% IN THE ABSENCE OF MORE SPECIFIC PARAMETERS FROM THE PHYSICIAN. AGENCY MAY PERFORM A RESUMPTION OF CARE VISIT FOLLOWING ANY HOSPITAL ADMISSION. REGISTERED NURSE/LICENSED PRACTICAL NURSE TO MONITOR CO-MORBID CONDITIONS LISTED ON THE PLAN OF CARE AND ANY NEW CONDITIONS THAT PRESENT THEMSELVES DURING THIS EPISODE TO IDENTIFY CHANGES AND INTERVENE TO MINIMIZE COMPLICATIONS. [code = RN TO OBSERVE, ASSESS, EVALUATE, AND DEVELOP AN INDIVIDUALIZED PLAN OF CARE. AGENCY MAY ACCEPT ORDERS FROM CONSULTING PHYSICIANS. REGISTERED NURSE TO OBSERVE AND ASSESS/LICENSED PRACTICAL NURSE TO OBSERVE FOR RISK FOR FALLS AND INSTRUCT IN FALL PREVENTION, HOME SAFETY, MEDICATION MANAGEMENT, INFECTION PREVENTION, AND NUTRITION MANAGEMENT. REGISTERED NURSE/LICENSED PRACTICAL NURSE MAY PERFORM O2 SATURATION LEVEL ON ADMISSION AND FOR RN TO ASSESS/CANT GANG SAWYER TO OBSERVE PATIENT, WITH NOTIFICATION TO THE PHYSICIAN IF SATURATION IS 90% IN THE ABSENCE OF MORE SPECIFIC PARAMETERS FROM THE PHYSICIAN. AGENCY MAY PERFORM A RESUMPTION OF CARE VISIT FOLLOWING ANY HOSPITAL ADMISSION. REGISTERED NURSE/LICENSED PRACTICAL NURSE TO MONITOR CO-MORBID CONDITIONS LISTED ON THE PLAN OF CARE AND ANY NEW CONDITIONS THAT PRESENT THEMSELVES DURING THIS EPISODE TO IDENTIFY CHANGES AND INTERVENE TO MINIMIZE COMPLICATIONS.] Future Scheduled Test RISK FOR H OSPITALIZATION; REGISTERED NURSE TO ASSESS /TEACH, LICENSED PRACTICAL NURSE TO OBSERVE/TEACH PATIENT/CAREGIVER ON RISK FOR HOSPITALIZATION/EMERGENCY ROOM VISITS, TEACH SIGNS AND SYMPTOMS THAT PUT PATIENT AT RISK, WHEN TO NOTIFY NURSE/PHYSICIAN OF COMPLICATIONS/DECLINE, AND WHEN TO CALL 911. [code = RISK FOR HOSPITALIZATION; REGISTERED NURSE TO ASSESS /TEACH, LICENSED PRACTICAL NURSE TO OBSERVE/TEACH PATIENT/CAREGIVER ON RISK FOR HOSPITALIZATION/EMERGENCY ROOM VISITS, TEACH SIGNS AND SYMPTOMS THAT PUT PATIENT AT RISK, WHEN TO NOTIFY NURSE/PHYSICIAN OF COMPLICATIONS/DECLINE, AND WHEN TO CALL 911.] Future Scheduled Test MEDICATION MANAGEMENT; REGISTERED NURSE/LICENSED PRACTICAL NURSE TO REVIEW MEDICATIONS FOR INTERACTIONS, EFFECTIVENESS OF DRUG THERAPY, AND SIGNS/SYMPTOMS OF ADVERSE REACTIONS. MAY INSTRUCT AND REINFORCE MEDICATION TEACHING RELATED TO THE USE OF MEDICATIONS, DOSAGE, FREQUENCY, PURPOSE, SIDE EFFECTS, AND TO REPORT COMPLICATIONS. [code = MEDICATION MANAGEMENT; REGISTERED NURSE/LICENSED PRACTICAL NURSE TO REVIEW MEDICATIONS FOR INTERACTIONS, EFFECTIVENESS OF DRUG THERAPY, AND SIGNS/SYMPTOMS OF ADVERSE REACTIONS. MAY INSTRUCT AND REINFORCE MEDICATION TEACHING RELATED TO THE USE OF MEDICATIONS, DOSAGE, FREQUENCY, PURPOSE, SIDE EFFECTS, AND TO REPORT COMPLICATIONS.] Future Scheduled Test CARDIOVASC ULAR SYSTEM; REGISTERED NURSE TO ASSESS /TEACH, LICENSED PRACTICAL NURSE TO OBSERVE/TEACH RELATED TO ALTERED CARDIOVASCULAR STATUS TO MINIMIZE COMPLICATIONS AND REDUCE HOSPITALIZATION. [code = CARDIOVASCULAR SYSTEM; REGISTERED NURSE TO ASSESS /TEACH, LICENSED PRACTICAL NURSE TO OBSERVE/TEACH RELATED TO ALTERED CARDIOVASCULAR STATUS TO MINIMIZE COMPLICATIONS AND REDUCE HOSPITALIZATION. ] Future Scheduled Test PAIN MANAG EMENT; REGISTERED NURSE TO ASSESS AND TEACH/LICENSED PRACTICAL NURSE TO OBSERVE AND TEACH AND PROVIDE EDUCATION ON PAIN MANAGEMENT TECHNIQUES. [code = PAIN MANAGEMENT; REGISTERED NURSE TO ASSESS AND TEACH/LICENSED PRACTICAL NURSE TO OBSERVE AND TEACH AND PROVIDE EDUCATION ON PAIN MANAGEMENT TECHNIQUES.] Future Scheduled Test GENITOURIN FARZANA MANAGEMENT; REGISTERED NURSE TO ASSESS AND TEACH/LICENSED PRACTICAL NURSE TO OBSERVE AND TEACH RELATED TO ALTERED GENITOURINARY STATUS TO MINIMIZE COMPLICATIONS AND REDUCE HOSPITALIZATION. [code = GENITOURINARY MANAGEMENT; REGISTERED NURSE TO ASSESS AND TEACH/LICENSED PRACTICAL NURSE TO OBSERVE AND TEACH RELATED TO ALTERED GENITOURINARY STATUS TO MINIMIZE COMPLICATIONS AND REDUCE HOSPITALIZATION.] Future Scheduled Test URINARY TR ACT INFECTION MANAGEMENT; REGISTERED NURSELICENSED PRACTICAL NURSE TO PROVIDE SKILLED TEACHING AND SELF- CARE MANAGEMENT RELATED TO UTI TO MINIMIZE COMPLICATIONS AND REDUCE THE RISK OF HOSPITALIZATION. [code = URINARY TRACT INFECTION MANAGEMENT; REGISTERED NURSELICENSED PRACTICAL NURSE TO PROVIDE SKILLED TEACHING AND SELF- CARE MANAGEMENT RELATED TO UTI TO MINIMIZE COMPLICATIONS AND REDUCE THE RISK OF HOSPITALIZATION.] Future Scheduled Test DEMENTIA M ANAGEMENT WITHOUT BEHAVIORAL DISTURBANCES; REGISTERED NURSE TO ASSESS AND TEACH/LICENSED PRACTICAL NURSE TO OBSERVE AND TEACH AND TO PROVIDE EDUCATION ON DEMENTIA WITHOUT BEHAVIORAL DISTURBANCES. [code = DEMENTIA MANAGEMENT WITHOUT BEHAVIORAL DISTURBANCES; REGISTERED NURSE TO ASSESS AND TEACH/LICENSED PRACTICAL NURSE TO OBSERVE AND TEACH AND TO PROVIDE EDUCATION ON DEMENTIA WITHOUT BEHAVIORAL DISTURBANCES.] Future Scheduled Test FALL REDUC TION MANAGEMENT; REGISTERED NURSE TO ASSESS AND TEACH/LICENSED PRACTICAL NURSE TO OBSERVE AND TEACH ON EDUCATION AND INTERVENTION TO IDENTIFY FALL RISK FACTORS SUCH MEDICATIONS THAT MAY CAUSE DIZZINESS, CHRONIC DISEASES, PSYCHOLOGICAL FACTORS, AND EMPOWER/EDUCATE PATIENT/CAREGIVER TO MINIMIZE FALL RISK. [code = FALL REDUCTION MANAGEMENT; REGISTERED NURSE TO ASSESS AND TEACH/LICENSED PRACTICAL NURSE TO OBSERVE AND TEACH ON EDUCATION AND INTERVENTION TO IDENTIFY FALL RISK FACTORS SUCH MEDICATIONS THAT MAY CAUSE DIZZINESS, CHRONIC DISEASES, PSYCHOLOGICAL FACTORS, AND EMPOWER/EDUCATE PATIENT/CAREGIVER TO MINIMIZE FALL RISK.] Future Scheduled Test PHYSICAL T HERAPIST TO EVALUATE FOR STRENGTH AND ENDURANCE TRAINING, HEP. [code = PHYSICAL THERAPIST TO EVALUATE FOR STRENGTH AND ENDURANCE TRAINING, HEP.] Future Scheduled Test SPEECH THE RAPIST TO EVALUATE FOR COGNITIVE RELAY ISSUES. [code = SPEECH THERAPIST TO EVALUATE FOR COGNITIVE RELAY ISSUES.] Future Scheduled Test OCCUPATION AL THERAPIST TO EVALUATE FOR BATHING, DRESSING, GROOMING AND COGNITIVE STRATEGIES. [code = OCCUPATIONAL THERAPIST TO EVALUATE FOR BATHING, DRESSING, GROOMING AND COGNITIVE STRATEGIES. ] Future Scheduled Test AGENCY MAY PERFORM A RESUMPTION OF CARE VISIT FOLLOWING ANY HOSPITAL ADMISSION. PHYSICAL THERAPY TO EVALUATE, ASSESS AND MONITOR, PROVIDE SKILLED THERAPEUTIC INTERVENTION, ACTIVITY, EDUCATION, AND TRAINING TO ADDRESS: TRANSFER TRAINING (PT) GAIT TRAINING (PT) NEUROMUSCULAR RE-EDUCATION / BALANCE RETRAINING (PT) THERAPEUTIC EXERCISES (PT) STAIR TRAINING (PT) OXYGEN SATURATION (PT). NOTIFY MD IF 02SATS BELOW 90% AFTER 10 MIN OF REST. IDENTIFY FALL RISK FACTORS AND ESTABLISH HOME EXERCISE PROGRAM TO MINIMIZE FALL RISK. MAY TEACH THE PATIENT FLOOR RECOVERY WHEN CLINICALLY APPROPRIATE (PT) PAIN MANAGEMENT (PT) [code = AGENCY MAY PERFORM A RESUMPTION OF CARE VISIT FOLLOWING ANY HOSPITAL ADMISSION. PHYSICAL THERAPY TO EVALUATE, ASSESS AND MONITOR, PROVIDE SKILLED THERAPEUTIC INTERVENTION, ACTIVITY, EDUCATION, AND TRAINING TO ADDRESS: TRANSFER TRAINING (PT) GAIT TRAINING (PT) NEUROMUSCULAR RE-EDUCATION / BALANCE RETRAINING (PT) THERAPEUTIC EXERCISES (PT) STAIR TRAINING (PT) OXYGEN SATURATION (PT). NOTIFY MD IF 02SATS BELOW 90% AFTER 10 MIN OF REST. IDENTIFY FALL RISK FACTORS AND ESTABLISH HOME EXERCISE PROGRAM TO MINIMIZE FALL RISK. MAY TEACH THE PATIENT FLOOR RECOVERY WHEN CLINICALLY APPROPRIATE (PT) PAIN MANAGEMENT (PT) ] Future Scheduled Test AGENCY MAY PERFORM A RESUMPTION OF CARE VISIT FOLLOWING ANY HOSPITAL ADMISSION. OT TO EVALUATE, OBSERVE / ASSESS, AND MONITOR, ZEB TO OBSERVE AND MONITOR, PROVIDE SKILLED THERAPEUTIC INTERVENTION, ACTIVITY, EDUCATION, AND TRAINING TO ADDRESS; DRESSING (OT/CUSTOM DESIGNER) ACTIVITIES OF DAILY LIVING (OT/CUSTOM DESIGNER) TOILET TRANSFER (OT/CUSTOM DESIGNER) BATH/SHOWER TRANSFER (OT/ZEB) HOME ACTIVITY / EXERCISE PROGRAM (OT/ZEB) OT/ZEB TO MONITOR AND EDUCATE ON OXYGEN SATURATION DURING ADLS/IADLS, NOTIFY PHYSICIAN AND/OR THE RN CLINICAL TELESCOPE MAINTENANCE FOR PHYSICIAN NOTIFICATION AND IF O2 SATS BELOW 90% AFTER 10 MIN OF REST. OT / CUSTOM DESIGNER TO IDENTIFY FALL RISK FACTORS; EDUCATE THE PATIENT/CAREGIVER ON WAYS TO REDUCE FALL RISK FACTORS AND ESTABLISH HOME EXERCISE PROGRAM TO MINIMIZE FALL RISK. MAY TEACH THE PATIENT FLOOR RECOVERY WHEN CLINICALLY APPROPRIATE. [code = AGENCY MAY PERFORM A RESUMPTION OF CARE VISIT FOLLOWING ANY HOSPITAL ADMISSION. OT TO EVALUATE, OBSERVE / ASSESS, AND MONITOR, CUSTOM DESIGNER TO OBSERVE AND MONITOR, PROVIDE SKILLED THERAPEUTIC INTERVENTION, ACTIVITY, EDUCATION, AND TRAINING TO ADDRESS; DRESSING (OT/ZEB) ACTIVITIES OF DAILY LIVING (OT/CUSTOM DESIGNER) TOILET TRANSFER (OT/ZEB) BATH/SHOWER TRANSFER (OT/CUSTOM DESIGNER) HOME ACTIVITY / EXERCISE PROGRAM (OT/CUSTOM DESIGNER) OT/CUSTOM DESIGNER TO MONITOR AND EDUCATE ON OXYGEN SATURATION DURING ADLS/IADLS, NOTIFY PHYSICIAN AND/OR THE RN CLINICAL TELESCOPE MAINTENANCE FOR PHYSICIAN NOTIFICATION AND IF O2 SATS BELOW 90% AFTER 10 MIN OF REST. OT / CUSTOM DESIGNER TO IDENTIFY FALL RISK FACTORS; EDUCATE THE PATIENT/CAREGIVER ON WAYS TO REDUCE FALL RISK FACTORS AND ESTABLISH HOME EXERCISE PROGRAM TO MINIMIZE FALL RISK. MAY TEACH THE PATIENT FLOOR RECOVERY WHEN CLINICALLY APPROPRIATE.] Goal 2023-08-30 Patient Goal - INCREASED END URANCE Goal Provider Goal - A PLAN OF CARE WILL BE ESTABLISHED THAT MEETS THE PATIENTS NEEDS. PATIENT WILL DEMONSTRATE OXYGEN SATURATION WITHIN NORMAL LIMITS OR PATIENTS OPTIMAL LEVEL ESTABLISHED BY THE PHYSICIAN THROUGHOUT CARE. CHANGES TO CO-MORBID CONDITIONS AND ANY NEW CONDITIONS WILL BE IDENTIFIED AND REPORTED TO THE PHYSICIAN. Goal Provider Goal - PATIENT/CAREGIVER WILL VERBALIZE UNDERSTANDING OF SIGNS AND SYMPTOMS THAT PUT THE PATIENT AT RISK FOR HOSPITALIZATION /EMERGENCY ROOM VISITS, WHEN TO NOTIFY NURSE/PHYSICIAN OF COMPLICATIONS/DECLINE AND WHEN TO CALL 911. Goal Provider Goal - PATIENT/CAREGIVER TO VERBALIZE, AND CONSISTENTLY DEMONSTRATE EFFECTIVE, SAFE MANAGEMENT OF MEDICATION INCLUDING KNOWLEDGE OF EFFECTIVENESS, POTENTIAL SIDE EFFECTS AND DRUG REACTIONS AND WHEN TO CONTACT THE APPROPRIATE CARE PROVIDER. PATIENT/CAREGIVER WILL BE ABLE TO VERBALIZE UNDERSTANDING OF MEDICATION REGIMEN AND ACCURATELY TAKE MEDICATIONS PRESCRIBED WITHOUT ADVERSE EFFECTS BY 09/02/23. Goal Provider Goal - PATIENT / CAREGIVER WILL VERBALIZE/DEMONSTRATE UNDERSTANDING OF MEASURES TO MANAGE ALTERED CARDIOVASCULAR STATUS BY END OF EPISODE. Goal Provider Goal - PATIENT / CAREGIVER WILL VERBALIZE / DEMONSTRATE UNDERSTANDING OF PAIN CONTROL MEASURES BY 09/02/23. Goal Provider Goal - PATIENT / CAREGIVER WILL VERBALIZE/DEMONSTRATE UNDERSTANDING OF MEASURES TO MANAGE ALTERED GENITOURINARY STATUS BY END OF EPISODE. Goal Provider Goal - PATIENT/CAREGIVER WILL VERBALIZE/DEMONSTRATE UNDERSTANDING OF CARE AND MANAGEMENT OF URINARY TRACT INFECTION BY 09/02/23. Goal Provider Goal - FAMILY / CAREGIVERS WILL VERBALIZE/DEMONSTRATE DEMENTIA MANAGEMENT TECHNIQUES BY END OF EPISODE. Goal Provider Goal - PATIENT/CAREGIVER ABLE TO IDENTIFY FALL RISK FACTORS AND IMPLEMENT STRATEGIES TO MINIMIZE FALL RISK. PATIENT/CAREGIVER WILL VERBALIZE/DEMONSTRATE AN ABILITY TO ADHERE TO FALL REDUCTION SELF MANAGEMENT AND LIFE-STYLE CHANGES AT DISCHARGE. PERSONAL GOAL(S) STATED BY PATIENT/CAREGIVER WILL BE MET BY 09/02/23. Goal Provider Goal - PATIENT WILL IMPROVE HOUSEHOLD TRANSFERS FROM [facility] TO INDEPENDENT IN 4 WEEKS TO PROMOTE IMPROVED FUNCTIONAL MOBILITY PATIENT WILL IMPROVE [facility] AND STAIRS AND COMMUNITY GAIT WITH SPC FROM CGA TO INDEPENDENT IN 8 WEEKS TO PROMOTE IMPROVED NAVIGATION THROUGHOUT HOME AND COMMUNITY PATIENT WILL IMPROVE TUG SCORE AND FOUR SQUARE STEP TEST FROM 22 TO 17 SECONDS IN 8 WEEKS TO PROMOTE IMPROVED BALANCE INPUT INTEGRATION PATIENT WILL DEMO INDEPENDENT PERFORMANCE OF STANDING THEREX AND BALANCE ACTIVITY IN 4 WEEKS TO PROMOTE LE STABILITY AND ACTIVITY TOLERANCE PATIENT WILL MAINTAIN OXYGEN SATURATION WITHIN PHYSICIAN ORDERED PARAMETERS THROUGHOUT EPISODE OF CARE PATIENT/CAREGIVER WILL DEMONSTRATE ADHERENCE TO FALL REDUCTION SELF MANAGEMENT TO MINIMIZE FALL BY END OF EPISODE. PT GOAL: PATIENT/CAREGIVER WILL VERBALIZE UNDERSTANDING OF PAIN MANAGEMENT BY END OF EPISODE. Goal Provider Goal - OT STG: PATIENT WILL IMPROVE LB DRESSING TO SBA WITHIN 4 WEEKS OT LTG: PATIENT WILL DEMONSTRATE IMPROVED ABILITY TO PERFORM LOWER BODY DRESSING TO REDUCE CAREGIVER BURDEN FROM MIN A TO INDEPENDENT WITHIN 6 WEEKS OT LTG: PATIENT WILL DEMONSTRATE IMPROVEMENT IN MODIFIED YESI INDEX SCORE FROM 87 TO 100 INDICATING DECREASED DEPENDENCY ON CAREGIVER ASSISTANCE WITH ACTIVITIES OF DAILY LIVING WITHIN 6 WEEKS OT STG: PATIENT WILL IMPROVE TOILET TRANSFER TO SBA WITHIN 4 WEEKS OT LTG: PATIENT WILL DEMONSTRATE IMPROVED ABILITY TO PERFORM TOILET TRANSFERS TO REDUCE FALL RISK FROM MIN A TO INDEPENDENT WITHIN 6 WEEKS OT STG: PATIENT WILL IMPROVE SHOWER TRANSFER TO SBA WITHIN 4 WEEKS OT LTG: PATIENT WILL DEMONSTRATE IMPROVED ABILITY AND SAFETY TO PERFORM BATH/SHOWER TRANSFER FROM MIN A TO INDEPENDENT WITHIN 6 WEEKS OT STG: PATIENT WILL IMPROVE BUE STRENGTHENING HEP TO MIN A WITHIN 4 WEEKS OT LTG: PATIENT WILL DEMONSTRATE IMPROVED STRENGTH/COORDINATION BUE FOR IMPROVED PARTICIPATION IN ADLS EVIDENCED BY IMPROVED ADLS AND TRANSFERS FROM MOD A TO INDEPENDENT WITHIN 6 WEEKS OT LTG: PATIENT WILL MAINTAIN OXYGEN SATURATION WITHIN PHYSICIAN ORDERED PARAMETERS THROUGHOUT THE EPISODE OF CARE. OT LTG: PATIENT/CAREGIVER WILL BE ABLE TO IMPLEMENT RECOMMENDATIONS SPECIFIC TO FALL REDUCTION FOR IMPROVED ADL/IADL COMPLETION AND HOME SAFETY BY END OF EPISODE. OT LTG: PATIENT WILL BE INDEPENDENT WITH IMPLEMENTATION OF HEP WITHIN 6 WEEKS Reason for Visit INDEPENDENT IN THE COMMUNITY Encounters Start Date/Time End Date/Time Encounter Type Admission Type Attending [facility] Care Department Encounter ID Discharge Date Discharge Status Discharge Condition Discharge Reason Percent Goals Met 2023-07-05 00:00:00 2023-08-30 00:00:00 Outpatient NEW ADMISSION [facility] [id number] 2023-08-30 00:00:00 DISCHARGE TO HOME OR SELF CARE INDEPENDEN T IN THE COMMUNITY HH ONLY - OUT PATIENT 55.10
== END 2024-02-26 10:05 | disposition home or self-care (01) ==
LOC: HO.BBR 10:04
PROVIDERS: PCP Nurse Practitioner Family; Visit Provider Urology
DX: D75.1 Secondary polycythemia (principal)
CPT/HCPCS: 85018; 99195

== ENCOUNTER 2024-05-26 10:01 | Outpatient (REF) | payer MEDICARE, SELFPAY ==
[2024-05-26 11:04] LABS: MANUAL DIFF FLAG NO
[2024-05-26 11:10] LABS: Basophils Absolute Auto 0.1 X10*3/uL (0.0-0.2); Basophils Percent Auto 1.2 % (0-2); Eosinophils Absolute Auto 0.1 X10*3/uL (0.0-0.4); Eosinophils Percent Auto 1.4 % (0-4); Hematocrit 46.9 % (42.0-52.0); Hemoglobin 15.9 g/dl (14.0-18.0); Imm Gran Abs Auto 0.02 X10*3/uL (0.00-0.03); Imm Gran Pct Auto 0.3 % (0.0-0.4); Lymphocytes Absolute Auto 1.2 X10*3/uL (1.2-4.9); Mean Corpuscular HGB Conc 33.9 g/dl (31.0-36.0); Mean Corpuscular Hemoglobin 30.5 pg (27.0-33.0); Mean Corpuscular Volume 89.8 fL (80.0-98.0); Monocytes Absolute Auto 0.6 X10*3/uL (0.1-1.2); Monocytes Percent Auto 9.5 % (2-11); Neutrophils Absolute Auto 3.9 x10*3/uL (2.0-8.3); Neutrophils Percent Auto 67.6 % (45-73); Platelet Count 217 X10*3/uL (160-400); Red Blood Count 5.22 X10*6/uL (4.60-5.80); Red Cell Distribution Width 13.2 % (11.0-16.0); White Blood Count 5.8 X10*3/uL (4.8-10.8)
--- OUTSIDE RECORDS SUMMARY | 2024-05-26 11:40 | XMS_ITS | Encounter Summary ---
Author Organization [facility] Address [address] [place] [address] Phone Care Team Providers Care Pattern Attendant Name Role Phone Sandy Leon LACQUERER Primary Care Provider Encounter Details Date Type Department Care Team (Late st Contact Info) Description 03/08/2021 Procedure Pass [facility] for Outpatient Care, Radio Flouroscopy [address] [place] [address] Social History Tobacco Use Types Packs/Day Years Used Date Smoking Tobacco: Never Smokeless Tobacco: Never Alcohol Use Standard Drinks/Week Comments No 0 (1 standard drink = 0.6 oz pur e alcohol) Sex and Gender Information Value Date Recorded Sex Assigned at Male 09/21/2019 2:33 PM EDT Gender Identity Male 09/21/2019 2:33 PM EDT Sexual Orientation Not on file documented as of this encounter Plan of Treatment Not on file documented as of this encounter Visit Diagnoses Not on filedocumented in this encounter Care Teams Pattern Attendant Relationship Specialty Start Date End Date Sandy Leon NP [address] [place] [address] PCP - General Nurse Practitioner 01/15/17 documented as of this encounter Additional Source Comments The information contained in this document represents components of the legal health record. It is not the complete legal health record.[facility]
--- OUTSIDE RECORDS SUMMARY | 2024-05-26 11:40 | XMS_ITS | Encounter Summary ---
Author Organization [facility] Address [address] [place] [address] Phone Care Team Providers Care Ground Operations Crew Member Name Role Phone Sandy Leon DIRECTOR OF MARKET ANALYSIS Primary Care Provider Encounter Details Date Type Department Care Team (Late st Contact Info) Description 03/28/2021 Transcribe Orders [facility] for Outpatient Care, Radio Flouroscopy [address] [place] [address] Priti Godfrey [address] [place] [id number] [email or web address] Social History Tobacco Use Types Packs/Day Years [...] on filedocumented in this encounter Care Teams Ground Operations Crew Member Relationship Specialty Start Date End Date Sandy Leon, DIRECTOR OF MARKET ANALYSIS [address] [place] [address] PCP - General Nurse Practitioner 01/15/17 documented as of this encounter Additional Source Comments The information contained in this document represents components of the legal health record. It is not the complete legal health record.[facility]
--- OUTSIDE RECORDS SUMMARY | 2024-05-26 11:40 | XMS_ITS ---
Author Organization [facility] Shayna Mcneill Address [address] [place] [place] [address] Care Team Providers Care Clinical Research Specialist Name Role Phone Julio Meneses NP Primary Care Provider Unavailab connie Mariluz Gomez Unavailable [phone] Allergies No Known Allergies REASON FOR VISIT [...] W/U Status Risk Notes Problem Atherosclerosis of [place] arteries of the extremities (940593388752331) Atherosclerosis of [place] artery of both lower extremities, with unspecified presence of clinical manifestation (I70.203) Active confirmed Q7(A), Q8(2B), Q9(1B,2 C) Vital Signs Height 4uc97uv in 09/09/2023 Weight 255 lbs 09/09/2023 BMI 36.58 kg/m2 09/09/2023 Blood pressure systolic 130 mm Hg 09/09/19 Blood pressure diastolic 80 mm Hg 024 Procedures Procedure Date Ordered Date Performed Result Body Sit e 73451-GUWPRCU NAIL, 6 OR MORE 09/09/2023 N/A 32053-Bgho Destruction, 1-14 09/09/2023 N/A 86559-YWWP SKIN LESIONS, OVER 4 09/09/2023 N/A Encounters Encounter Location Date Provider Diagnosis [facility] [address] [place] [address] 09/09/2023 Mariluz Black Pain of toe of right foot M79.674 ; Onychomycosis B35.1 ; Pain of toe of left foot M79.675 ; Pain in right foot M79.671 ; Verruca B07.9 ; Tinea pedis of both feet B35.3 ; Atherosclerosis of [place] artery of both lower extremities, with unspecified [...] feet (ICD-10 - B35.3) 09/09/2023 Atherosclerosis of [place] artery of both lower extremities, with unspecified presence of clinical manifestation (ICD-10 - I70.203) 09/09/2023 Tinea unguium (ICD-10 - B35.1) Plan Of Treatment Pending Test Test Name Order Date 55500-LKYPCNP NAIL, 6 OR MORE 09/09/2023 42983-Unwv Destruction, 1-14 09/09/2023 93565-ZIJH SKIN LESIONS, OVER 4 09/09/19 Next Appt Details Follow Up: prn, Reason: Provider Name:Mariluz Gomez , 07/16/2024 09:15:00 AM, [address] [place], [address], Procedure Notes * Category Sub-Category Detail Notes Wart Treatment Procedure Verrucae were de brided to pin-point bleeding margins with sterile 15 surgical blade, silver nitrate chemocautery applied, recomm. immune-boosting meds such as zinc, recomm. follow up with topical chemosurgical agents, Pt defers any other forms of tx (93135) , Debride Nail 6-10 Nail debridement Nail debridem ent performed extensively to reduce/remove overall nail length and girth, subungual debris, and necrotic tissue, by manual and electrical means with use of a nail nipper and/or dremel, to more viable healthy nail plate or bed tissue 6-10. Silver nitrate used for any petechial bleeding as necessary. Patient chooses, no pharmaceutical tx (81150) , Nail debridement performed extensively to reduce/remove overall nail length, girth, thickness, subungual debris, and necrotic tissue, by manual and electrical means through the use of a nail nipper and/or dremel, to more viable healthy nail plate or bed tissue 1-5. Silver nitrate used for any petechial bleeding as necessary. Patient chooses, no pharmaceutical tx (25975) Keratoma Treatment Parring or Cutting o f Benign Hyperkeratotic Lesion(s) 60872 ( More than 4 Lesions ) - The Benign hyperkeratotic lesions, as described above were pared, and/or cut utilizing a sterile 15 blade, tissue nippers, and/or dremel, Progress Notes * Avery BLEVINSDOB: [birth year] (73 yo M)Acc No.[id number]:09/09/2023 Progress Note Patient:?Avery Blevins Alec Provider:?Mariluz ADRIAN Gomez :1950???Age:73 Y???Sex:Male Mohan e:09/09/2023 Address:[address] [place] [address] [address], [phone] Pcp:Julio Meneses NP Subjective: * Chief Complaints: [...] * Allergies:?N.K.D.A.yes[Aller gies Verified] Objective: * Vitals:?Ht: 7jp34go, Wt:255, BMI:36.58, Shoe size: 11EEE, BP:130/80 mm [...] problem, Uncomplicated (3),Rx drug management (4)?7.?Atherosclerosis of [place] artery of both lower extremities, with unspecified presence of clinical manifestation - I70.203?8.?Tinea unguium - B35.1? Plan: * Treatment: 2.?Verruca?Procedure: 67321-Srxy Destruction, 1-14 3.?Atherosclerosis of [place] artery of both lower extremities, with unspecified presence of clinical manifestation?Procedure: 04982-FNKI SKIN LESIONS, OVER 4 * Procedures:?Debride Nail 6-10:?Nail debridement?Nail debridement performed extensively to reduce/remove overall nail length and girth, subungual debris, and necrotic tissue, by manual and electrical means with use of a nail nipper and/or dremel, to more viable healthy nail plate or bed tissue 6-10. Silver nitrate used for any petechial bleeding as necessary. Patient chooses, no pharmaceutical tx (05411) , Nail debridement performed extensively to reduce/remove overall nail length, girth, thickness, subungual debris, and necrotic tissue, by manual and electrical means through the use of a nail nipper and/or dremel, to more viable healthy nail plate or bed tissue 1-5. Silver nitrate used for any petechial bleeding as necessary. Patient chooses, no pharmaceutical tx (61119).?Keratoma Treatment:?Parring or Cutting of Benign Hyperkeratotic Lesion(s)?18299 ( More than 4 Lesions ) - [...] Pt defers any other forms of tx (79143) , .? * Procedure Codes:?10351 DEBRI DE NAIL, 6 OR MORE, Modifiers: XS 02653 Wart Destruction, 1-14, Modifiers: XS 41381 TRIM SKIN LESIONS, OVER 4, Modifiers: Q8 [...] DPM Date:?2023 Generated for Rubin lubin/Fazal/Jose L on:?05/26/2024 11:40 AM EDT History and Physical Notes * HPI (History [...] person, place, and t [facility]hell [facility] DP PULSES (B): , 1/4, B/L PT PULSES (B): 0/4, B/L CAPILLARY FILL TIME: delayed, all digits , B/L TEMPERTURE GRADIENT (C): decreased, cool to cool, proximal to distal, B/L TROPHIC CONDITION-TEXTURE/ELASTICITY/TURGOR/HAIR GROWTH (B): decreased, B/L EDEMA (C): 3/4 , non-pitting , B/L , Leg(s) , Ankle(s) , Foot CLAUDICATION (C): denies, B/L REST PAIN: denies, B/L PIGMENTATION: rubrous , B/L Nails NAILS are: Elongated, overg rown, dystrophic, lytic, greater than 3mm thick, discolored and friable with crumbly malodorous subungual debris, with pain on palpation , TA , T1 , T3 , T4 , T5 , T7 , T6 ,
--- OUTSIDE RECORDS SUMMARY | 2024-05-26 11:40 | XMS_ITS | Patient Health Record ---
Author Organization [facility] Shayna pily Mcneill Address [address] [place] [address] Care Team Providers Care Shift Foreman Name Role Phone Julio Meneses NP Primary Care Provider Unavailab connie Mariluz Gomez Unavailable [phone] Allergies No Known Allergies Reason For Referral No Information Medications Medication SIG (Take, Route, Frequency, Duration) Notes Start Date End Date Status Clopidogrel Bisulfate 75 MG TAKE 1 TABLET BY MOUTH EVERY DAY Oral for 30 Days Activ e Ciclopirox Olamine 0.77 % 1 application Externally Twice a day for 30 days Active Valsartan 160 MG Oral for 90 Days Active Donepezil HCl 5 MG Oral for 30 Days Active Ciclopirox Olamine 0.77 % 1 application Externally Twice a day for 30 days Active Atorvastatin Calcium 80 MG TAKE 1 TABLET BY MOUTH EVERY DAY Oral for 90 Days Activ e Testosterone Cypionate 200 MG/ML Intramuscular for 30 Days Ac tive Venlafaxine HCl ER 37.5 MG Oral for 30 Days Active Ammonium Lactate 12 % 1 application Exte rnally to affected areas of dry skin to feet except for between the toes Twice a day for 30 days Active [...] W/U Status Risk Notes Problem Plantar wart (56055865) Plantar wart (B07.0) Active confirmed Problem Atherosclerosis of [place] arteries of the extremities (474648000859122) Atherosclerosis of [place] artery of both lower extremities, with unspecified presence of clinical manifestation (I70.203) Active confirmed Q7(A), Q8(2B), Q9(1B,2 C) Problem [id number] Ulcer of left midfoot limited to breakdown of skin (L97.421) Active confirmed Vital Signs Blood pressure diastolic 80 mm Hg 04/09/2024 Height 6hu91zk in 04/09/2024 Blood pressure systolic 130 mm Hg 04/09/2024 Weight 241 lbs 04/09/2024 BMI 34.58 kg/m2 04/09/2024 Procedures Procedure Date Ordered Date Performed Result Body Sit e 64962-KUCMSMG NAIL, 6 OR MORE 05/27/2023 N/A 60170-Qdjp Destruction, 1-14 05/27/2023 N/A 82859-YLGBDPW NAIL, 6 OR MORE 09/09/2023 N/A 00059-Bfuj Destruction, 1-14 09/09/2023 N/A 84508-AHFL SKIN LESIONS, OVER 4 09/09/2023 N/A 94263-RRDBZNF NAIL, 6 OR MORE 12/23/2023 N/A 23421-Pcii Destruction, 1-14 12/23/2023 N/A 39507-OGTY SKIN LESIONS, OVER 4 12/23/2023 N/A 50529-EZEGWNM NAIL, 6 OR MORE 04/09/2024 N/A 98817-Gbbx Destruction, 1-14 04/09/2024 N/A 01722-KFCQ SKIN LESIONS, OVER 4 04/09/2024 N/A Encounters Encounter Location Date Provider Diagnosis [facility] [address] [address] 05/27/2023 Mariluz Black Pain of toe of right foot M79.674 ; Onychomycosis B35.1 ; Pain of toe of left foot M79.675 ; Pain in right foot M79.671 ; Verruca B07.9 and Tinea pedis of both feet B35.[address] [facility] [address] 09/09/2023 Mariluz Black Pain of toe of right foot M79.674 ; Onychomycosis B35.1 ; Pain of toe of left foot M79.675 ; Pain in right foot M79.671 ; Verruca B07.9 ; Tinea pedis of both feet B35.3 ; Atherosclerosis of [place] artery of both lower extremities, with unspecified presence of clinical manifestation I70.203 and Tinea unguium B35.1 [facility] [address] 12/23/2023 Mariluz Black Onychomycosis B35.1 ; Verruca B07.9 ; Pain of toe of right foot M79.674 ; Pain of toe of left foot M79.675 ; Pain in right foot M79.671 and Atherosclerosis of [place] artery of both lower extremities, with unspecified presence of clinical manifestation I70.[address] [address] 04/09/2024 Mariluz Black Onychomycosis B35.1 ; Verruca B07.9 ; Pain of toe of right foot M79.674 ; Pain of toe of left foot M79.675 ; Pain in right foot M79.671 ; Atherosclerosis of [place] artery of both lower extremities, with unspecified presence of clinical manifestation I70.203 and Xerosis of skin L85.3 Assessments Encounter Date Diagnosis (ICD Code) Assessment Notes Treatment Notes Treatment Clinical Notes Section Notes 05/27/2023 Pain of toe of right foot (ICD-10 - M79.674) 09/09/2023 Pain of toe of right foot (ICD-10 - M79.674) 12/23/2023 Verruca (ICD-10 - B07.9) 12/23/2023 Onychomycosis (ICD-10 - B35.1) 04/09/2024 Onychomycosis (ICD-10 - B35.1) 04/09/2024 Verruca (ICD-10 - B07.9) 12/23/2023 Pain of [...] toe of left foot (ICD-10 - M79.675) 04/09/2024 Pain of toe of right foot (ICD-10 - M79.674) 04/09/2024 Pain of toe of left foot (ICD-10 - M79.675) 12/23/2023 Pain in right foot (ICD-10 - M79.671) 09/09/2023 Verruca (ICD-10 - B07.9) 05/27/2023 Verruca (ICD-10 - B07.9) 05/27/2023 Tinea pedis of both feet (ICD-10 - B35.3) 09/09/2023 Tinea pedis of both feet (ICD-10 - B35.3) 12/23/2023 Atherosclerosis of [place] artery of both lower extremities, with unspecified presence of clinical manifestation (ICD-10 - I70.203) Q7(A), Q8(2B), Q9(1B,2C) 04/09/2024 Pain in right foot (ICD-10 - M79.671) 04/09/2024 Atherosclerosis of [place] artery of both lower extremities, with unspecified presence of clinical manifestation (ICD-10 - I70.203) Q7(A), Q8(2B), Q9(1B,2C) 09/09/2023 Atherosclerosis of [place] artery of both lower extremities, with unspecified presence of clinical manifestation (ICD-10 - I70.203) 09/09/2023 Tinea unguium (ICD-10 - B35.1) 04/09/2024 Xerosis of skin (ICD-10 - L85.3) Plan Of Treatment Pending Test Test Name Order Date 92666-JICJWLM NAIL, 6 OR MORE 11/08/2022 51647-PGPDUKB NAIL, 6 OR MORE 02/14/2023 61839-DEZHQVS NAIL, 6 OR MORE 05/27/2023 88540-NJCEZKB NAIL, 6 OR MORE 09/09/2023 22828-RBCMRMQ NAIL, 6 OR MORE 12/23/2023 52655-NHUFXCI NAIL, 6 OR MORE 04/09/2024 77444-Fzqc Destruction, 1-14 04/09/2024 61017-Hyiw Destruction, 1-14 09/09/2023 53508-Njsu Destruction, 1-14 12/23/2023 68391-Sqvf Destruction, 1-14 05/27/2023 68321-Pchz Destruction, 1-14 11/08/2022 55752-Zard Destruction, 1-14 02/14/2023 23776-OHED SKIN LESIONS, OVER 4 12/23/19 73459-VAZN SKIN LESIONS, OVER 4 09/09/19 27105-LXSQ SKIN LESIONS, OVER 4 04/09/19 Next Appt Details Provider Name:Mariluz Gomez , 07/16/2024 09:15:00 AM, [address] [place], [address], Insurance Providers Payer Name Payer Address Payer Phone Subscriber Number Group Number Insured Name Patient Relationship to Insured Coverage Start Date Coverage End Date Medicare [employer] [address] [facility] [place] [address] [id number] Avery Fernandes Self - patient is the insured [employer] [facility] [address] [place] [address] [id number] Avery Fernandes Self - patient is the insured Medical (General) History Medical History History ICD Code Cancer Depression High blood pressure Polymyalgia rheumatica Surgical History Surgery Date(Month/Year) back surgery Stent x3 tonsillectomy colonoscopy Hospitalization History Reason Date(Month/Year) [facility]- UTI 07/2023
--- OUTSIDE RECORDS SUMMARY | 2024-05-26 11:41 | XMS_ITS | Clinical Summary ---
Author Organization [facility] Address [address] [facility] [place] [phone] Phone Care Team Providers Care Automotive Power Electronics Engineer Name Role Phone Sandy Leon NP Primary Care Provider [phone] Allergies No known active allergies Medications Medication Sig Dispensed Refills Start Date End Date Status losartan (COZAAR) 100 MG tablet Take 50 mg by mouth daily. Active hydroCHLOROthiazide (HYDRODIURIL) 25 MG tablet Take 25 mg by mouth daily. 03/10/2017 Active lisinopril (PRINIVIL,ZESTRIL) 5 MG tablet Take 5 mg by mouth daily. 02/13/2017 Active testosterone cypionate (DEPO-TESTOTERONE) 200 mg/mL IM injection INJECT 1/2CC IM ONCE WEEKLY DIRECTED BY MD James 03/04/2017 Active vitamin E 400 UNIT capsule Take 400 Units by mouth daily. Active b complex vitamins capsule Take 1 capsule by mouth daily. Active acetaminophen (TYLENOL) 500 MG tablet Take 1,000 mg by mouth every 6 (six) hours as needed for pain (specific location in comments). Active docusate sodium (COLACE) 100 MG capsule Take 1 capsule (100 mg total) by mouth 2 (two) times a day. 04/10/2018 Active Additional Information Patient not taking.Reported on 09/23/2019 DULoxetine (CYMBALTA) 30 MG capsule 1 CAPSULE BY MOUTH 2 TIMES A DAY 6 08/05/2018 Active diazePAM (VALIUM) 5 MG tablet Take 1 tablet (5 mg total) by mouth every 6 (six) hours as needed for anxiety. Take 1 or 2 tabs about an hour before the procedure. 4 tablet 12/15/2018 Active Additional Information Patient not taking.Reported on 09/23/2019 isosorbide mononitrate (IMDUR) 60 MG 24 hr tablet Take 60 mg by mouth daily. Active metoprolol succinate (TOPROL-XL) 25 MG 24 hr tablet Take 25 mg by mouth daily. Active amLODIPine (NORVASC) 10 MG tablet Take 10 mg by mouth daily. 09/10/2019 Active atorvastatin (LIPITOR) 80 MG tablet Take 80 mg by mouth daily. 08/14/2019 Active VANISHPOINT SYRINGE 3 mL 21 gauge x 1 1/2 Syrg USE TO INJECT ONCE PER WEEK 08/17/2019 Active valsartan (DIOVAN) 160 MG tablet Take 160 mg by mouth daily. 08/31/2019 Active valsartan (DIOVAN) 80 MG tablet Take 80 mg by mouth daily. 08/21/2019 Active glucosamine-chondroi tin 500-400 mg Cap Take 1 capsule by mouth 3 (three) times a day. Active ketorolac (ACULAR) 0.5 % ophthalmic solution 02/21/2022 Active prednisoLONE acetate (PRED FORTE) 1 % ophthalmic suspension 02/21/2022 Active magnesium 30 mg tablet daily. Active ofloxacin (OCUFLOX) 0.3 % ophthalmic solution 02/21/2022 Active cholecalciferol (VITAMIN D3) 25 MCG (1,000 unit) tablet daily. Activ e clopidogrel (PLAVIX) 75 mg tablet clopidogrel 75 mg tablet TAKE 1 TABLET BY MOUTH EVERY DAY 01/19/2021 Active Active Problems Problem Noted Date Diagnosed Date Hx of repair of left rotator cuff 11/28/2018 Tendinitis of left rotator cuff Left shoulder pain Immunizations Name Administration Dates Next Due COVID-19 (Pre-01/07) Sima Vaccine, [id number], PF 06/25/2020 Influenza, Unspecified Formulation 01/17/2006(Antunez: Patient Decision) Pneumococcal polysaccharide PPSV23 01/17/2006(Antunez: Patient Decision) Family History Medical History Relation Comments No Known Problems Brother No Known Problems Father No Known Problems Maternal Aunt No Known Problems Maternal Grandfather No Known Problems Maternal Grandmother No Known Problems Maternal Uncle Stroke Mother No Known Problems Paternal Aunt No Known Problems Paternal Grandfather No Known Problems Paternal Grandmother No Known Problems Paternal Uncle No Known Problems Sister Cancer Neg Hx Clotting disorder Neg Hx Collagen disease Neg Hx Depression Neg Hx Diabetes Neg Hx Dislocations Neg Hx Gout Neg Hx Infl. arthritis Neg Hx Osteoporosis Neg Hx Scoliosis Neg Hx Relation Status Comments Brother Father Maternal Aunt Maternal Grandfather Maternal Grandmother Maternal Uncle Mother Paternal Aunt Paternal Grandfather Paternal Grandmother Paternal Uncle Sister Social History Tobacco Use Types Packs/Day Years Used Date Smoking Tobacco: Never Smokeless Tobacco: Never Tobacco Cessation:Counseling Given: Not Answered Alcohol Use Standard Drinks/Week Comments No 0 (1 standard drink = 0.6 oz pur e alcohol) Education Answer Date Recorded Are you interested in more education? Not on millie e 07/12/2022 Are you concerned about learning? Not on file 07/12/2022 No 07/12/2022 No 07/12/2022 Digital Access Answer Date Recorded No 08/13/2022 No 08/13/2022 No 08/13/2022 Reliable internet access at home? Not on file 08/13/2022 Device with a working camera? Not on file Sex and Gender Information Value Date Recorded Sex Assigned at Male 09/21/2019 2:33 PM EDT Gender Identity Male 09/21/2019 2:33 PM EDT Sexual Orientation Not on file Last Filed Vital Signs Vital Sign Reading Time Taken Comments Blood Pressure 126/83 05/21/2018 9:08 AM EST Pulse 64 05/21/2018 9:08 AM EST Temperature 36.8 ??C (98.2 ??F) 02/26/2022 3:04 PM ES T Respiratory Rate 18 04/10/2018 2:49 PM EST Oxygen Saturation 95% 04/10/2018 2:49 PM EST Inhaled Oxygen Concentration - - Weight 113.4 kg (250 lb) 02/26/2022 3:04 PM EST Height 174 cm (5' 8.5 ) 02/26/2022 3:04 PM EST Body Mass Index 37.46 02/26/2022 3:04 PM EST Plan of Treatment Health Maintenance Due Date Last Done Comments CREATININE LEVEL 1950 LIPID PANEL 1950 POTASSIUM LEVEL 1950 DEPRESSION SCREENING 1962 HEPATITIS C SCREENING 1968 COLOGUARD 1995 COLONOSCOPY 1995 COLORECTAL CANCER SCREENING 1995 FIT TEST 1995 FOBT 1995 SIGMOIDOSCOPY 1995 VIRTUAL COLONOSCOPY 1995 ZOSTER VACCINES (1 of 2) 2000 Adult Td,Tdap Booster 05/12/2020 05/12/2010 , 07/22/2003 PNEUMOCOCCAL VACCINES (50+ years) (2 of 2 - PPSV23) 06/07/2021 06/07/2020 INFLUENZA VACCINE (#1) 2023 5, 05/09/2010, 02/02/2008 COVID-19 VACCINE (4 - 2023-2 5 season) 2023 09/13/2021, 03/15/2021, 06/25/2020 RSV VACCINE (1 - 1-dose 75+ series) 2025 SMOKING STATUS SCREENING (On ce After 26 Yrs) Completed 02/26/2022 HEPATITIS A VACCINES Aged Out No long er eligible based on patient's age to complete this topic HIB VACCINES Aged Out No longer eligi ble based on patient's age to complete this topic MENINGOCOCCAL VACCINES (ACWY) Aged Out No longer eligible based on patient's age to complete this topic Medical Devices Implanted Type Area Surgical Services Manager Device Identifier Shelf Expiration Date Model / Serial / Lot Mesh For Prostate Cancer Aleppo Suture 4.5mm Arthroscopy Reelx Stt Peek Ss Core Knotless Shapr Tip Expandable Bx/5ea - [id number] Implanted:Qty: 4 on 04/10/2018 by William Price DO at [facility] Left: Shoulder [employer] 11/06/2019 [id number] / / [id number] Aleppo Suture 5.5mm Size 2 Intraline Titanium Force Fiber - [id number] Implanted:Qty: 1 on 04/10/2018 by William Price DO at [facility] Left: Shoulder [employer] 02/24/2019 [id number] / / [id number] Advance Directives For more information, please contact: [phone] (9AM - 5PM Amber/[facility], Saturday-Saturday) * Full Code (Presumed) (Latest Code Status on File) Date Activated Date Inactivated Comments 04/10/2018 10:20 AM 04/10/2018 5:27 PM Care Teams Automotive Power Electronics Engineer Relationship Specialty Start Date End Date Sandy Leon NP [address] [place] [id number] PCP - General Nurse Practitioner 01/15/17 Additional Source Comments The information contained in this document represents components of the legal health record. It is not the complete legal health record.[facility]
--- OUTSIDE RECORDS SUMMARY | 2024-05-26 11:41 | XMS_ITS | Encounter Summary ---
Author Organization [facility] Address [address] [place] [phone] Phone Care Team Providers Care Record Press Operator Name Role Phone Sandy Leon ACCOUNTS PAYABLE ASSOCIATE Primary Care Provider Encounter Details Date Type Department Care Team (Late st Contact Info) Description 12/15/2018 Ancillary Orders [facility] Orthopedics & Sports Medicine [address] [place] [phone] William Price DO [address] [place] [address] Orthopedics & Sports Medicine, [facility] [place] [address] [email or web address] Social History Tobacco Use Types Packs/Day Years [...] on filedocumented in this encounter Care Teams Record Press Operator Relationship Specialty Start Date End Date Sandy Leon NP [address] [place] [phone] PCP - General Nurse Practitioner 01/15/17 documented as of this encounter Additional Source Comments The information contained in this document represents components of the legal health record. It is not the complete legal health record.[facility]
--- OUTSIDE RECORDS SUMMARY | 2024-05-26 11:41 | XMS_ITS | Encounter Summary ---
Author Organization [facility] Address [address] [address] [place] [phone] Phone Care Team Providers Care Employment Director Name Role Phone Sandy Leon RECORD KEEPER Primary Care Provider [phone] Encounter Details Date Type Department Care Team (Late st Contact Info) Description 12/15/2018 Ancillary Orders [facility] [address] [place] [id number] William Price DO [address] [facility] Orthopedics & Sports Medicine, [facility] [place] [address] [email or web address] Left shoulder pain, unspecified chronicity Social History Tobacco Use Types Packs/Day Years [...] on file documented as of this encounter Results * XR SHOULDER 2 VIEWS (LEFT) (12/15/2018 8:48 AM EDT) Narrative SYSTEMGENERATED, DOCUMENTATION - 12/15/2018 8:48 AM EDT This image report has been auto-finalized and has not been read by a Radiologist. Interpretation has been included in the provider encounter note for this date of service. William Price DO IMG XR UPPER EXTREM ITY documented in this encounter Visit Diagnoses Diagnosis Left shoulder pain, unspecified chronicity Left shoulder pain, unspecified chronicity documented in this encounter Care Teams Employment Director Relationship Specialty Start Date End Date Sandy Leon, RICH [address] [place] [phone] PCP - General Nurse Practitioner 01/15/17 documented as of this encounter Additional Source Comments The information contained in this document represents components of the legal health record. It is not the complete legal health record.[facility]
--- OUTSIDE RECORDS SUMMARY | 2024-05-26 11:41 | XMS_ITS | Encounter Summary ---
Author Organization [facility] Address [address] [place] [phone] Phone Care Team Providers Care Heel Trimmer Name Role Phone Sandy Leon DEBEADER Primary Care Provider Encounter Details Date Type Department Care Team (Late st Contact Info) Description 05/16/2017 Procedure Pass [address] [place] [address] Social History Tobacco Use Types Packs/Day Years [...] on filedocumented in this encounter Care Teams Heel Trimmer Relationship Specialty Start Date End Date Sandy Leon NP [address] [place] [phone] PCP - General Nurse Practitioner 01/15/17 documented as of this encounter Additional Source Comments The information contained in this document represents components of the legal health record. It is not the complete legal health record.[facility]
--- OUTSIDE RECORDS SUMMARY | 2024-05-26 11:41 | XMS_ITS ---
Author Organization [facility] Shayna Rogersley Address [address] [place] [address] Care Team Providers Care Water Softener Installer Name Role Phone Julio Meneses NP Primary Care Provider Unavailab connie Mariluz Gomez Unavailable [phone] Allergies No Known Allergies REASON FOR VISIT [...] 37.5 MG Oral for 30 Days Active Valsartan 160 MG Oral for 90 Days Active Donepezil HCl 5 MG Oral for 30 Days Active Ciclopirox Olamine 0.77 % 1 application Externally Twice a day for 30 days Active Ammonium Lactate 12 % 1 application [...] Additional Findings: Tobacco Non-User Current no n-smoker Tobacco use other than smoking: Question Answer Notes Are you an other tobacco user? No Vital Signs Height 4jq38wn in 04/09/2024 Weight 241 lbs 04/09/2024 BMI 34.58 kg/m2 04/09/2024 Blood pressure systolic 130 mm Hg 04/09/19 25 Blood pressure diastolic 80 mm Hg 025 Procedures Procedure Date Ordered Date Performed Result Body Sit e 26547-TQTSGWX NAIL, 6 OR MORE 04/09/2024 N/A 60410-Wmjq Destruction, 1-14 04/09/2024 N/A 77517-EZFX SKIN LESIONS, OVER 4 04/09/2024 N/A Encounters Encounter Location Date Provider Diagnosis [facility] [place] [address] [place] [address] 04/09/2024 Mariluz Black Onychomycosis B35.1 ; Verruca B07.9 ; Pain of toe of right foot M79.674 ; Pain of toe of left foot M79.675 ; Pain in right foot M79.671 ; Atherosclerosis of [place] artery of both lower extremities, with unspecified presence of clinical manifestation I70.203 and Xerosis of skin L85.3 Assessments Encounter Date Diagnosis (ICD Code) Assessment Notes Treatment Notes Treatment Clinical Notes Section Notes 04/09/2024 Onychomycosis (ICD-10 - B35.1) 04/09/2024 Verruca (ICD-10 - B07.9) 04/09/2024 Pain of toe of right foot (ICD-10 - M79.674) 04/09/2024 Pain of toe of left foot (ICD-10 - M79.675) 04/09/2024 Pain in right foot (ICD-10 - M79.671) 04/09/2024 Atherosclerosis of [place] artery of both lower extremities, with unspecified presence of clinical manifestation (ICD-10 - I70.203) Q7(A), Q8(2B), Q9(1B,2C) 04/09/2024 Xerosis of skin (ICD-10 - L85.3) Plan Of Treatment Medication Medication Name Sig Start Date Stop Date Notes Ammonium Lactate 12 % 1 application Exte rnally to affected areas of dry skin to feet except for between the toes Twice a day for 30 days Pending Test Test Name Order Date 25190-UICEUOM NAIL, 6 OR MORE 04/09/2024 51616-Giqk Destruction, 1-14 04/09/2024 66608-SCIR SKIN LESIONS, OVER 4 04/09/19 Next Appt Details Follow Up: prn, Reason: Provider Name:Mariluz Gomez , 07/16/2024 09:15:00 AM, [address] [place], [address], Procedure Notes * Category Sub-Category Detail Notes Wart Treatment Procedure Verrucae were de brided to pin-point bleeding margins with sterile 15 surgical blade, silver nitrate chemocautery applied, recomm. immune-boosting meds such as zinc, recomm. follow up with topical chemosurgical agents, Pt STILL, defers any other forms of tx (49372) , , CIRCULATION: Any more invasive procedure to wart deferred due to circulation risk Debride Nail 6-10 Nail debridement Due to the cl inical pathology outlined in the exam findings, performance of this nail treatment is medically necessary as its management by an unskilled/untrained nonprofessional would put this patients foot and overall health at risk. Therefore, debridement to affected nail(s), as described in exam (, T1 , T3 , T4 , T7 , , T8, T6 ), was performed exclusively by the physician of record to reduce/remove overall nail length, girth, thickness, subungual debris, and necrotic tissue, by manual and/or electrical means through the use of a nail nipper and/or dremel-type emery grinder, to a more viable healthy nail plate or bed tissue 6-10 nails in total. Silver nitrate was used for any petechial bleeding as necessary. Definitive antifungal treatment options, both pharmaceutical and surgical, have been reviewed and discussed with the patient. The patient solely prefers the use of intermittent/as needed professional debridement services for their nail condition and understands the need for additional periodic treatments to maintain effectiveness in symptomatic relief - 59005 Keratoma Treatment Parring or Cutting o f Benign Hyperkeratotic Lesion(s) (-57) More than 4 Lesions - Due to the at risk nature of the patients medical condition as documented in the exam findings, performance of this keratoderma treatment is medically necessary as its management by an unskilled/untrained nonprofessional would put this patients foot and overall health at risk. Therefore, the benign hyperkeratotic lesions, ( 6 ) in total, locations as stated and described in the exam ( ,plantar Heel(s), B/L, TA, T5, SUB MTH (s), 1, B/L , ), were pared, and/or cut utilizing a sterile 15 blade, tissue nippers, and/or power dremel instrumentation by the physician of record - 38657 Progress Notes * Avery BLEVINSDOB: [birth year] (73 yo M)Acc No.[id number]:04/09/2024 Progress Note Patient:?Avery BLEVINS Provider:?Mariluz Gomez DPM :1950???Age:73 Y???Sex:Male Mohan e:04/09/2024 Address:[address] [place] [address], [facility], [facility] Pcp:Julio Mensees NP Subjective: * Chief Complaints: * ???At Risk FootcarePainful N ail(s) aggrevated by shoes and causing difficulty standing/walking.Skin problem(s) * HPI: ???Painful Nails:?Pt States Last PCP Visit:?Date:?02/24/2024 ???At Risk footcare:?Pt States Last PCP Visit:?Date?02/24/2024 ???Skin problems:?Nature:?dryness , scaling.?Location:?B/L .?Duration:?several days.?Course:?worse.? * ROS:?General/Constitutional:?Nausea?denies.?Vomiting?denies.?Hunger Thirst?denies.?Loss appetite?denies.?Chills?denies.?Fatigue?denies.?Fever?denies.?Night Sweats?denies.?Unexplained weight loss?denies.?Unexplained [...] * Family History:?Mother: dece ased, diagnosed with Other malignant neoplasm of unspecified site, Unspecified essential hypertension.?Father: .? * Social History:?Tobacco Use:?Tobacco Use/Smoking?Are you a:?nonsmoker ?Additional Findings: Tobacco Non-User?Current non-smoker ?Tobacco use other than smoking?Are you an other tobacco user??No ???Miscellaneous:?Caffeine: yes, 3-5 cups per day. ?Children: yes, 2. ?Exercise: no. ?Marital status: . 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 * Medications:?TakingCiclopiro x Olamine 0.77 % Cream 1 application Externally Twice a day Valsartan 160 MG Tablet Oral Donepezil HCl 5 MG Tablet Oral Testosterone Cypionate 200 MG/ML Solution Intramuscular Venlafaxine HCl ER 37.5 MG Capsule Extended Release 24 Hour Oral Atorvastatin Calcium 80 MG Tablet TAKE 1 TABLET BY MOUTH EVERY DAY Oral Clopidogrel Bisulfate 75 MG Tablet TAKE 1 TABLET BY MOUTH EVERY DAY Oral Ciclopirox Olamine 0.77 % Cream 1 application Externally Twice a day Medication List reviewed and reconciled with the patientTaking Ciclopirox Olamine 0.77 % Cream 1 application Externally Twice a day Taking Valsartan 160 MG Tablet Oral Taking Donepezil [...] % Cream 1 application Externally Twice a day Medication List reviewed and reconciled with the patient * Allergies:?N.K.D.A.yes[Aller gies Verified] Objective: * Vitals:?Ht: 7hd73tm, Wt:241, BMI:34.58, Shoe size: 11EEE, BP:130/80mm Hg, Ht-cm: 177.8 cm, Wt-k.32 kg. * Examination: ???General Examination: ?GENERAL APPEARANCE:?Reveals a pleasant, alert, well nourished, well- developed, well hydrated individual, who demonstrates proper attention to hygiene/body habitus, and is in no acute distress, Pt serves as own historian for office visit today.?ORIENTED:?person, place, and time.?Dermatologic: ?SKIN FINDINGS:?Skin exam reveals Keratotic lesion(s) located at,plantar?Heel(s), B/L, TA, T5, SUB MTH (s), 1, B/L , Skin shows sign(s) of, dryness, scaling, in a stocking fashion, no fissure(s) present, B/L.?VERRUCA:?Reveals a Single , multi-loculated , mosaically patterned, round, raised, flat-topped, petechial bleeding papule(s), with cauliflower appearance and interruption of skin lines, less pain to lateral compression, and size estimated at 2-3 mm diameter , LEFT , with increased erythema surrounding the lesion.?Vascular: ?DP PULSES (B):?, 1/4, B/L.?PT PULSES (B):? 0/4, B/L.?CAPILLARY FILL TIME:? delayed, all digits, B/L.?TROPHIC CONDITION-TEXTURE/ELASTICITY/TURGOR/HAIR GROWTH (B):? decreased, B/L.?TEMPERTURE GRADIENT (C):? decreased, cool to cool, proximal to distal, B/L.?PIGMENTATION:?rubrous , B/L.?EDEMA (C):?3/4 , non-pitting , B/L , Leg(s) , Ankle(s) , Foot.?CLAUDICATION (C):?denies, B/L.?REST PAIN:?denies, B/L.?Nails: ?NAILS are:?Elongated, overgrown, dystrophic, lytic, greater than 3mm thick, discolored and friable with crumbly malodorous subungual debris, with pain on palpation , , T1 , T3 , T4 , T7 , , T8, T6.? Assessment: * Assessment: 1.?Onychomycosis - B35.1???2 .?Verruca - B07.9 (Primary)???3.?Pain of toe of right foot - M79.674???4.?Pain of toe of left foot - M79.675???5.?Pain in right foot - M79.671???6.?Atherosclerosis of [place] artery of both lower extremities, with unspecified presence of clinical manifestation - I70.203???Notes :Q7(A), Q8(2B), Q9(1B,2C)???7.?Xerosis of skin - L85.3???Specify :Acute problem, Uncomplicated (3),Rx Management (4)??? Plan: * Treatment: 2.?Onychomycosis?Procedure: 31605-LQAEGMX NAIL, 6 OR MORE 3.?Atherosclerosis of [place] artery of both lower extremities, with unspecified presence of clinical manifestation?Procedure: 78608-ZOLD SKIN LESIONS, OVER 4 4.?Xerosis of skin? Start Ammonium Lactate Cream, 12 %, 1 application, Externally to affected areas of dry skin to feet except for between the toes, Twice a day, 30 days, 280, Refills 3.?? * Procedures:?Debride Nail 6-10:?Nail debridement?Due to the clinical pathology outlined in the exam findings, performance of this nail treatment is medically necessary as its management by an unskilled/untrained nonprofessional would put this patients foot and overall health at risk. Therefore, debridement to affected nail(s), as described in exam (, T1 , T3 , T4 , T7 , , T8, T6 ), was performed exclusively by the physician of record to reduce/remove overall nail length, girth, thickness, subungual debris, and necrotic tissue, by manual and/or electrical means through the use of a nail nipper and/or dremel-type emery grinder, to a more viable healthy nail plate or bed tissue 6-10 nails in total. Silver nitrate was used for any petechial bleeding as necessary. Definitive antifungal treatment options, both pharmaceutical and surgical, have been reviewed and discussed with the patient. The patient solely prefers the use of intermittent/as needed professional debridement services for their nail condition and understands the need for additional periodic treatments to maintain effectiveness in symptomatic relief - 18802.?Keratoma Treatment:?Parring or Cutting of Benign Hyperkeratotic Lesion(s)?(-57) More than 4 Lesions - Due to the at risk nature of the patients medical condition as documented in the exam findings, performance of this keratoderma treatment is medically necessary as its management by an unskilled/untrained nonprofessional would put this patients foot and overall health at risk. Therefore, the benign hyperkeratotic lesions, ( 6 ) in total, locations as stated and described in the exam (?,plantar?Heel(s),?B/L,?TA,?T5,?SUB MTH (s),?1,?B/L?,??), were pared, and/or cut utilizing a sterile 15 blade, tissue nippers, and/or power dremel instrumentation by the physician of record - 76350.?Wart Treatment:?Procedure?Verrucae were debrided to pin-point bleeding margins with sterile 15 surgical blade, silver nitrate chemocautery applied, recomm. immune-boosting meds such as zinc, recomm. follow up with topical chemosurgical agents, Pt STILL, defers any other forms of tx (51927) , , CIRCULATION: Any more invasive procedure to wart deferred due to circulation risk.? * Procedure Codes:?24014 DEBRI DE NAIL, 6 OR MORE, Modifiers: XS 95741 Wart Destruction, 1-14, Modifiers: XS 79483 TRIM SKIN LESIONS, OVER 4, Modifiers: Q8 * Preventive Medicine:? ??Counseling:?Discussion:?-13: Office or other [...] have encouraged the patient to call the office.?Xerosis:?The patient was counseled on the diagnosis, potential etiologies, and treatment options for their skin condition. We discussed the risks and benefits of each option from performing no treatment, to utilizing OTC topical skin creams/ointments, to utilizing prescription topical creams/ointments, to utilizing customized compounded topical medications and use of nocturnal occlusion with any/all previously detailed therapies. We discussed the advantages and disadvantages of each possible treatment and importance for adherence to all the recommended therapies for optimum success and avoid potential complications such as open sore/infection/possible hospitalization. We discussed the potential effectiveness of each topical preparation as well as each ones possible side effects and/or patient medication interactions. Patient questions re: use, dosage, successful outcomes, and application consistency were reviewed and the patient verbalized that all answers were clearly understood. The patient has decided to apply Rx skin creams to their feet save the interspaces while paying special attention to the heels. Such was sent to their pharmacy at the time of visit.? ??Screening/Special Tests:?Fall Risk?Screening:?No falls in the past year ?FALLS: Screening for Future Fall Risk?Have you had any falls with injury in the past year??No ???1057. * Follow Up:?prn * Images: * Sign off status: Completed true * Provider:?Mariluz Gomez DPM Date:?2024 Generated for Rubin lubin/Fazal/Yadirasmitting on:?05/26/2024 11:41 AM EDT History and Physical Notes * HPI (History of Present Illness) Category Sub-Category Detail Notes Category Not es Painful Nails Pt States Last PCP Visit: Date:: 02/24/2024 Skin problems Nature: dryness , scaling Location: B/L Duration: several days Course: worse At Risk footcare Pt States Last PCP Visit: Date: Examination Category Sub-Category Detail Notes Category Not es Dermatologic SKIN FINDINGS: Skin exam reveal s Keratotic lesion(s) located at,plantar Heel(s), B/L, TA, T5, SUB MTH (s), 1, B/L , Skin shows sign(s) of, dryness, scaling, in a stocking fashion, no fissure(s) present, B/L ULCER: VERRUCA: Reveals a Single , m ulti-loculated , mosaically patterned, round, raised, flat-topped, petechial bleeding papule(s), with cauliflower appearance and interruption of skin lines, less pain to lateral compression, and size estimated at 2-3 mm diameter , LEFT , with increased erythema surrounding the lesion General Examination GENERAL APPEARANCE: Reveals a pleasant, [...]
--- OUTSIDE RECORDS SUMMARY | 2024-05-26 11:41 | XMS_ITS | Clinical Summary ---
Author Organization [facility] Address [address] [place] [address] Care Team Providers Care Print Line Supervisor Name Role Phone Sandy Leon Primary Care Provider [phone] Allergies No known active allergies Medications acetaminophen (TYLENOL) 500 mg tablet Take 1,000 mg by mouth every 6 hours as needed. Active amLODIPine (NORVASC) 10 mg tablet Take 10 mg by mouth once a day. 01/19/2021 Active atorvastatin (LIPITOR) 80 mg tablet Take 80 mg by mouth once a day. 12/17/2020 Active clopidogreL (PLAVIX) 75 mg tablet Take 75 mg by mouth once a day. 01/19/[address] (CYMBALTA) 30 mg capsule Take 30 mg by mouth 2 times a day. 01/04/2021 Active glucosamine-dawit droitin 500-400 mg capsule Take 1 capsule by mouth 3 times daily. Active isosorbide mononitrate ER (IMDUR) 60 mg tablet Take 60 mg by mouth daily. Active losartan (COZAAR) 100 mg tablet Take 50 mg by mouth daily. Active metoprolol succinate XL (TOPROL XL) 25 mg tablet Take 25 mg by mouth daily. Active metoprolol succinate XL (TOPROL XL) 25 mg tablet Take 25 mg by mouth once a day. 02/07/2020 Active nitroglycerin (NITROSTAT) 0.[address] under the tongue. 03/23/2020 Active testosterone cypionate (DEPO-TESTOSTERO NE) 200 mg/mL injection SMARTSIG:Geronimo browning(s) IM 01/02/2021 Active valsartan (DIOVAN) 160 mg tablet Take 160 mg by mouth once a day. 01/05/2021 Active vitamin B complex capsule Take 1 capsule by mouth daily. Active vitamin E 400 unit capsule Take 400 Units by mouth daily. Active LORazepam (ATIVAN) 1 mg tablet Take 1 tablet (1 mg total) by mouth See admin instructions . 1 by mouth 1 hour prior to MRI, may repeat X 1 dose 2 tablet 01/24/2021 Active Family History Relation Name Status Comments Father Mother Social History Tobacco Use Types Packs/Day Years Used Date Smoking Tobacco: Never Smokeless Tobacco: Never Sex and Gender Information Value Date Recorded Sex Assigned at Not on file Legal Sex Male 1:44 PM EDT Gender Identity Not on file Sexual Orientation Not on file Last Filed Vital Signs Vital Sign Reading Time Taken Comments Blood Pressure 124/85 01/24/2021 9:28 AM EST Pulse 82 01/24/2021 9:28 AM EST Temperature - - Respiratory Rate - - Oxygen Saturation - - Inhaled Oxygen Concentration - - Weight 106.6 kg (235 lb) 01/24/2021 9:28 AM EST Height 175.3 cm (5' 9 ) 01/24/2021 9:28 AM EST Body Mass Index 34.7 01/24/2021 9:28 AM EST Plan of Treatment Health Maintenance Due Date Last Done Comments Cologuard 1950 Colon Cancer Screening 1950 Colonoscopy 1950 FOBT / Fit Test 1950 Sigmoidoscopy 1950 DTaP,Tdap,and Td Vaccines (1 - Tdap) 1972 Zoster Vaccines (1 of 2) 2000 Pneumococcal Vaccine: 50+ Ye ars (2 of 2 - PPSV23) 06/07/2021 06/07/2020 COVID-19 Vaccine (2 - 2023-2 5 season) 2023 06/25/2020 Influenza Vaccine (#1) 2023 Alcohol/Substance Use Screening 03/18/2024 Health Care Proxy Review 03/18/2024 RSV Vaccine (60+ years old a nd patients) (1 - 1-dose 75+ series) 2025 Hepatitis B Vaccines Aged Out No long er eligible based on patient's age to complete this topic Insurance [facility] MEDICARE Advance Directives Healthcare Agents on File Name Relationship Healthcare Agent Relationshi p Communication Lili Fernandes Spouse Next of Kin Care Teams Print Line Supervisor Relationship Specialty Start Date End Date Sandy Leon [address] [place] [id number] PCP - General Nurse Practitioner 01/19/21
--- OUTSIDE RECORDS SUMMARY | 2024-05-26 11:41 | XMS_ITS ---
Author Organization [facility] Shayna Mcneill Address [address] [place] [address] Care Team Providers Care Cold Header Operator Name Role Phone Julio Meneses NP Primary Care Provider Unavailab connie Mariluz Gomez Unavailable [phone] Allergies No Known Allergies REASON FOR VISIT [...] Ordered Date Performed Result Body Sit e 18301-HTJOJJY NAIL, 6 OR MORE 12/23/2023 N/A 14985-Akpo Destruction, 1-14 12/23/2023 N/A 59733-SWEI SKIN LESIONS, OVER 4 12/23/2023 N/A Encounters Encounter Location Date Provider Diagnosis [facility] [place] [address] [place] [address] 12/23/2023 Mariluz Gomez Onychomycosis B35.1 ; Verruca B07.9 ; Pain of toe of right foot M79.674 ; Pain of toe of left foot M79.675 ; Pain in right foot M79.671 and Atherosclerosis of [place] artery of both lower extremities, with unspecified [...] foot (ICD-10 - M79.671) 12/23/2023 Atherosclerosis of [place] artery of both lower extremities, with unspecified presence of clinical manifestation (ICD-10 - I70.203) Q7(A), Q8(2B), Q9(1B,2C) Plan Of Treatment Pending Test Test Name Order Date 29199-ZHTGPIJ NAIL, 6 OR MORE 12/23/2023 10961-Ifrh Destruction, 1-14 12/23/2023 50673-XFOB SKIN LESIONS, OVER 4 12/23/19 24 Next Appt Details Follow Up: prn, Reason: Provider Name:Mariluz Gomez , 07/16/2024 09:15:00 AM, [address] [place] [address], [address], Procedure Notes * Category Sub-Category Detail Notes Wart Treatment Procedure Verrucae were de brided to pin-point bleeding margins with sterile 15 surgical blade, silver nitrate chemocautery applied, recomm. immune-boosting meds such as zinc, recomm. follow up with topical chemosurgical agents, Pt defers any other forms of tx (88916) , , CIRCULATION: Any more invasive procedure [...] use of a nail nipper and/or dremel-type grinder setup operator, to a more viable healthy nail plate or bed tissue 6-10. Silver nitrate used for any petechial bleeding as necessary. Definitive antifungal treatment options have been reviewed and discussed with the patient. The patient chooses, no pharmaceutical tx - 80426 Keratoma Treatment Parring or Cutting o f Benign Hyperkeratotic Lesion(s) 01941 ( More than 4 Lesions ) - The Benign hyperkeratotic lesions, as described above were pared, and/or cut utilizing a sterile 15 blade, tissue nippers, and/or dremel, Progress Notes * GEN Avery AlecDOB: [birth year] (73 yo M)Acc No.[id number]:12/23/2023 Progress Note Patient:?Avery Fernandes Alec Provider:?Mariluz Gomez DPM :1950???Age:73 Y???Sex:Male Mohan e:12/23/2023 Address:[address] [place] [address] [address], [place], [place] Pcp:Julio Meneses NP Subjective: * Chief Complaints: [...] M79.675?5.?Pain in right foot - M79.671?6.?Atherosclerosis of [place] artery of both lower extremities, with unspecified presence of clinical manifestation - I70.203, Q7(A), Q8(2B), Q9(1B,2C)? Plan: * Treatment: 2.?Onychomycosis?Procedure: 15161-IUFBAML NAIL, 6 OR MORE 3.?Atherosclerosis of [place] artery of both lower extremities, with unspecified presence of clinical manifestation?Procedure: 92831-QHOQ SKIN LESIONS, OVER 4 * Procedures:?Debride Nail 6-10:?Nail debridement?Performance of this nail treatment by a nonprofessional would put this patients foot and overall health at risk. Therefore, nail debridement was performed extensively to reduce/remove overall nail length, girth, thickness, subungual debris, and necrotic tissue, by manual and/or electrical means through the use of a nail nipper and/or dremel-type grinder setup operator, to a more viable healthy nail plate or bed tissue 6-10. Silver nitrate used for any petechial bleeding as necessary. Definitive antifungal treatment options have been reviewed and discussed with the patient. The patient chooses, no pharmaceutical tx - 61723.?Keratoma Treatment:?Parring or Cutting of Benign Hyperkeratotic Lesion(s)?91681 ( More than 4 Lesions ) - [...] Pt defers any other forms of tx (25117) , , CIRCULATION: Any more invasive procedure to wart deferred due to circulation risk.? * Procedure Codes:?11220 DEBRI DE NAIL, 6 OR MORE, Modifiers: XS 12446 Wart Destruction, 1-14, Modifiers: XS 14219 TRIM SKIN LESIONS, OVER 4, Modifiers: Q8 * Follow Up:?prn * Images: * Sign off status: Completed true * Provider:?Mariluz Gomez DPM Date:?2023 Generated for Rubin lubin/Fazal/Joanitting on:?05/26/2024 11:40 AM EDT History and Physical [...] mm diameter , LEFT , Vascular DP PULSES (B): , 1/4, B/L [...]
--- OUTSIDE RECORDS SUMMARY | 2024-05-26 11:41 | XMS_ITS | Referral Summary ---
Author Organization [facility] Address [address] [place] [address] Care Team Providers Care Payroll Accounting Manager Name Role Phone Sandy Leon Primary Care Provider [phone] Allergies No known active allergies Medications acetaminophen [...] X 1 dose 2 tablet 01/24/2021 Active Social History Tobacco Use Types Packs/Day Years [...] 01/24/2021 9:28 AM EST Plan of Treatment Not on file Insurance [facility] MEDICARE Advance Directives Healthcare Agents on File Name Relationship Healthcare Agent [facility] Communication Lili Fernandes Spouse Next of Kin Care Teams Payroll Accounting Manager Relationship Specialty Start Date End Date Sandy Leon [address] [place] [address] PCP - General Nurse Practitioner 01/19/21
--- OUTSIDE RECORDS SUMMARY | 2024-05-26 11:41 | XMS_ITS | Encounter Summary ---
Author Organization [facility] Address [address] [place] [address] Phone Care Team Providers Care French Binder Name Role Phone Sandy Leon STOCK HOLDER Primary Care Provider Encounter Details Date Type Department Care Team (Late st Contact Info) Description 04/10/2018 Procedure Pass OR Admitting Dept - Virtual Department [address] [place] [phone] Social History Tobacco Use Types Packs/Day Years [...] on filedocumented in this encounter Care Teams French Binder Relationship Specialty Start Date End Date Sandy Leon NP [address] [place] [address] PCP - General Nurse Practitioner 01/15/17 documented as of this encounter Additional Source Comments The information contained in this document represents components of the legal health record. It is not the complete legal health record.[facility]
== END 2024-05-26 10:02 | disposition home or self-care (01) ==
LOC: HO.BBR 10:01
PROVIDERS: PCP Nurse Practitioner Family; Visit Provider Urology
DX: D75.1 Secondary polycythemia (principal)
CPT/HCPCS: 36415; 84402; 84403; 85014; 85018; 85025; 99195

== ENCOUNTER 2024-11-06 09:00 | Outpatient (REF) | payer MEDICARE, SELFPAY ==
--- OUTSIDE RECORDS SUMMARY | 2024-11-06 09:13 | XMS_ITS | Patient Health Record ---
Author Organization [facility] Shayna pily Mcneill Address [address] [place] [address] Care Team Providers Care Dietary Server Name Role Phone Julio Meneses NP Primary Care Provider Unavailab connie Mariluz Gomez Unavailable [phone] Allergies No Known Allergies Reason For Referral No Information Medications Medication SIG (Take, Route, Frequency, Duration) Notes Start Date End Date Status Ammonium Lactate 12 % 1 application Exte rnally to affected areas of dry skin to feet except for between the toes Twice a day; Duration: 30 days Active Ciclopirox Olamine 0.77 % 1 application Externally Twice a day; Duration: 30 days Active Donepezil HCl 5 MG Oral; Duration: 30 Days Active Valsartan 160 MG Oral; Duration: 90 Days Active Testosterone Cypionate 200 MG/ML Intramuscular; Duration: 30 Days Active Atorvastatin Calcium 80 MG TAKE 1 TABLET BY MOUTH EVERY DAY Oral; Duration: 90 Days Active Venlafaxine HCl ER 37.5 MG Oral; Duration: 30 Days Active Ciclopirox Olamine 0.77 % 1 application Externally Twice a day; Duration: 30 days Active Clopidogrel Bisulfate 75 MG TAKE 1 TABLE T BY MOUTH EVERY DAY Oral; Duration: 30 Days Active Immunizations Vaccine Route Administration Date Status Comme nts Influenza Unknown 10/29/2024 Refused Social History Tobacco Use: Social History Observation [...] Are you an other tobacco user? No AUDIT-C (Standard) Question Answer Notes Did you have a drink containing alcohol in the p ast year? No Points 0 Interpretation Negative Problems Problem Type SNOMED Code ICD Code Onset Dates Problem Status W/U Status Risk Notes Problem Plantar wart (31497222) Plantar wart (B07.0) Active confirmed Problem Bilateral atherosclerosis of arteries of lower limbs (disorder) ([id number] ) Atherosclerosis of prairie band artery of both lower extremities, with unspecified presence of clinical manifestation (I70.203) Active confirmed Q7(A), Q8(2B), Q9(1B,2 C) Vital Signs Blood pressure diastolic 80 mm Hg 10/29/2024 Height [id number] in 10/29/2024 Blood pressure systolic 132 mm Hg 10/29/2024 Weight 230 lbs 10/29/2024 BMI 33 kg/m2 10/29/2024 Procedures Procedure Date Ordered Date Performed Result Body Sit e 28351-JQBKFTS NAIL, 6 OR MORE 12/23/2023 N/A 11812-Pjyl Destruction, 1-12/23/2023 N/A 52789-QQRA SKIN LESIONS, OVER 4 12/23/2023 N/A 57676-BIKPYUG NAIL, 6 OR MORE 04/09/2024 N/A 26584-Swdw Destruction, 1-04/09/2024 N/A 21670-HVCY SKIN LESIONS, OVER 4 04/09/2024 N/A 21340-XHSJUTI NAIL, 6 OR MORE 07/16/2024 N/A 34693-Iave Destruction, 1-07/16/2024 N/A 46132-SSWE SKIN LESIONS, OVER 4 07/16/2024 N/A 12907-ZEMIGCD NAIL, 6 OR MORE 10/29/2024 N/A 13622-Reza Destruction, 1-10/29/2024 N/A 81839-Wkukkcfq Plate 10/29/2024 N/A 23188-YWKT SKIN LESIONS, OVER 4 10/29/2024 N/A 01739- Removal of Foreign Body, Subcut 10/29/2024 N/A Encounters Encounter Location Date Provider Diagnosis [facility] [place] [address] [place] [address] 12/23/2023 Mariluz Black Onychomycosis B35.1 ; Verruca B07.9 ; Pain of toe of right foot M79.674 ; Pain of toe of left foot M79.675 ; Pain in right foot M79.671 and Atherosclerosis of prairie band artery of both lower extremities, with unspecified presence of clinical manifestation I70.[address] [address] 04/09/2024 Mariluz Black Onychomycosis B35.1 ; Verruca B07.9 ; Pain of toe of right foot M79.674 ; Pain of toe of left foot M79.675 ; Pain in right foot M79.671 ; Atherosclerosis of prairie band artery of both lower extremities, with unspecified presence of clinical manifestation I70.203 and Xerosis of skin L85.[address] [address] 07/16/2024 Mariluz Black Onychomycosis B35.1 ; Verruca B07.9 ; Pain of toe of right foot M79.674 ; Pain of toe of left foot M79.675 ; Atherosclerosis of prairie band artery of both lower extremities, with unspecified presence of clinical manifestation I70.203 ; Xerosis of skin L85.3 and Pain in left foot M79.[address] [address] 10/29/2024 Mariluz Black Onychomycosis B35.1 ; Verruca B07.9 ; Pain of toe of right foot M79.674 ; Pain of toe of left foot M79.675 ; Atherosclerosis of prairie band artery of both lower extremities, with unspecified presence of clinical manifestation I70.203 ; Pain in left foot M79.672 ; Puncture wound with foreign body, left foot, initial encounter S91.342A ; Ingrown nail L60.0 and Laceration of left foot, initial encounter S91.312A Assessments Encounter Date Diagnosis (ICD Code) Assessment Notes Treatment Notes Treatment Clinical Notes Section Notes 12/23/2023 Verruca (ICD-10 - B07.9) 12/23/2023 Onychomycosis (ICD-10 - B35.1) 04/09/2024 Onychomycosis (ICD-10 - B35.1) 07/16/2024 Onychomycosis (ICD-10 - B35.1) l 10/29/2024 Onychomycosis (ICD-10 - B35.1) 07/16/2024 Verruca (ICD-10 - B07.9) l 07/16/2024 Pain of toe of right foot (ICD-10 - M79.674) l 10/29/2024 Verruca (ICD-10 - B07.9) 10/29/2024 Pain of toe of right foot (ICD-10 - M79.674) 04/09/2024 Verruca (ICD-10 - B07.9) 12/23/2023 Pain of toe of right foot (ICD-10 - M79.674) 12/23/2023 Pain of toe of left foot (ICD-10 - M79.675) 04/09/2024 Pain of toe of right foot (ICD-10 - M79.674) 07/16/2024 Pain of toe of left foot (ICD-10 - M79.675) l 10/29/2024 Pain of toe of left foot (ICD-10 - M79.675) 10/29/2024 Atherosclerosis of prairie band artery of both lower extremities, with unspecified presence of clinical manifestation (ICD-10 - I70.203) Q7(A), Q8(2B), Q9(1B,2C) 04/09/2024 Pain of toe of left foot (ICD-10 - M79.675) 07/16/2024 Atherosclerosis of prairie band artery of both lower extremities, with unspecified presence of clinical manifestation (ICD-10 - I70.203) Q7(A), Q8(2B), Q9(1B,2C) l 12/23/2023 Pain in right foot (ICD-10 - M79.671) 07/16/2024 Xerosis of skin (ICD-10 - L85.3) l 10/29/2024 Pain in left foot (ICD-10 - M79.672) 12/23/2023 Atherosclerosis of prairie band artery of both lower extremities, with unspecified presence of clinical manifestation (ICD-10 - I70.203) Q7(A), Q8(2B), Q9(1B,2C) 04/09/2024 Pain in right foot (ICD-10 - M79.671) 04/09/2024 Atherosclerosis of prairie band artery of both lower extremities, with unspecified presence of clinical manifestation (ICD-10 - I70.203) Q7(A), Q8(2B), Q9(1B,2C) 07/16/2024 Pain in left foot (ICD-10 - M79.672) l 10/29/2024 Puncture wound with foreign body, left foot, initial encounter (ICD-10 - S91.342A) 10/29/2024 Ingrown nail (ICD-10 - L60.0) 04/09/2024 Xerosis of skin (ICD-10 - L85.3) 10/29/2024 Laceration of left foot, initial encounter (ICD-10 - S91.312A) Plan Of Treatment Pending Test Test Name Order Date 07820-OXWNDGI NAIL, 6 OR MORE 11/08/2022 83560-LOVBPEK NAIL, 6 OR MORE 02/14/2023 06470-QWKZQQN NAIL, 6 OR MORE 05/27/2023 78358-EJWGWLT NAIL, 6 OR MORE 09/09/2023 82458-PPIEELM NAIL, 6 OR MORE 12/23/2023 87802-DIFZZQT NAIL, 6 OR MORE 04/09/2024 94629-RKPBAYN NAIL, 6 OR MORE 07/16/2024 46100-KYMIIVT NAIL, 6 OR MORE 10/29/2024 00685-Ttpu Destruction, 1-10/29/2024 71798-Kjcd Destruction, -14 04/09/2024 28823-Hkwf Destruction, -14 07/16/2024 06067-Dhff Destruction, -14 09/09/2023 80002-Panb Destruction, -12/23/2023 58949-Npat Destruction, -05/27/2023 75046-Galp Destruction, -11/08/2022 77406-Mjkf Destruction, -02/14/2023 67134-Qwuvbtqi Plate 10/29/2024 75141-RTHT SKIN LESIONS, OVER 4 10/30/19 23331-MPIW SKIN LESIONS, OVER 4 12/23/19 41312-NLJF SKIN LESIONS, OVER 4 09/09/19 50961-CRQU SKIN LESIONS, OVER 4 04/09/19 65497-LEJG SKIN LESIONS, OVER 4 07/17/19 04839- Removal of Foreign Body, Subcut 0 10/29/2024 Next Appt Details Provider Name:Mariluz Gomez , 01/28/2025 08:15:00 AM, [address] [place], [address], Insurance Providers Payer Name Payer Address Payer Phone Subscriber Number Group Number Insured Name Patient Relationship to Insured Coverage Start Date Coverage End Date Medicare National [employer] [address] [place] [address] [id number] Avery Fernandes Self - patient is the insured [employer] [facility] [address] [place] [address] [id number] Avery Fernandes Self - patient is the insured Medical (General) History Medical History History ICD Code Cancer Depression High blood pressure Polymyalgia rheumatica Surgical History Surgery Date(Month/Year) back surgery Stent x3 tonsillectomy colonoscopy right knee replacement 08/16/24 Hospitalization History Reason Date(Month/Year) [facility]- UTI 07/2023
--- OUTSIDE RECORDS SUMMARY | 2024-11-06 09:13 | XMS_ITS | Clinical Summary ---
Author Organization [facility] Address [address] [place] [address] Care Team Providers Care Gas Plant Operator Name Role Phone Sandy Leon Primary Care Provider [phone] Allergies No known active allergies Medications acetaminophen [...] 50+ Ye ars (2 of 2 - PCV20 or PCV21) 06/07/2021 06/07/2020 COVID-19 Vaccine (2 - 2023-2 5 season) 2023 06/25/2020 Alcohol/Substance Use Screening 03/18/2024 Health Care Proxy Review 03/18/2024 Influenza Vaccine (#1) 2024 RSV Vaccine (60+ years old a nd patients) (1 - 1-dose 75+ series) 2025 Hepatitis B Vaccines Aged Out No long er eligible based on patient's age to complete this topic Insurance [facility] MEDICARE Advance Directives Healthcare Agents on File Name Relationship Healthcare Agent Relationshi p Communication Lili Fernandes Spouse Next of Kin Care Teams Gas Plant Operator Relationship Specialty Start Date End Date Sandy Leon [address] [place] [address] PCP - General Nurse Practitioner 01/19/21
--- OUTSIDE RECORDS SUMMARY | 2024-11-06 09:13 | XMS_ITS | Encounter Summary ---
Author Organization [facility] Address [address] [place] [address] Care Team Providers Care General Manager Farm Name Role Phone Mary Ng MD Primary Care Provider [phone] Encounter Details Date Type Department Care Team (Late st Contact Info) Description 08/19/2024 Lab Requisition [facility] - Main Lab [address] [facility] [place] [address] Mary Ng MD [address] [place] [address] Encounter for other general examination Social History Tobacco Use Types Packs/Day Years Used Date Smoking Tobacco: Never Assessed Sex and Gender Information Value Date Recorded Sex Assigned at Not on file Legal Sex Male 10:19 AM EST Gender Identity Not on file Sexual Orientation Not on file documented as of this encounter Plan of Treatment Not on file documented as of this encounter Procedures Procedure Name Priority Date/Time Associated Diagnosis Comments MANUAL DIFFERENTIAL - SYSMEX WAM Routine 08/19/2024 6:26 AM EDT Encounter for other general examination CBC WITH AUTO DIFFERENTIAL Routine 08/19/2024 6:26 AM EDT Encounter for other general examination CBC AND DIFFERENTIAL Routine 08/19/2024 6:26 AM EDT Encounter for other general examination LIPASE Routine 08/19/2024 6:26 AM EDT Encounter for other general examination AMYLASE Routine 08/19/2024 6:26 AM EDT Encounter for other general examination COMPREHENSIVE METABOLIC PANEL Routine 08/19/2024 6:26 AM EDT Encounter for other general examination documented in this encounter Results * (ABNORMAL) Manual differential (08/19/2024 6:26 AM EDT) Neutrophils % 76.0 % LAB HEMETOLOGY METHOD 08/19/2024 11:47 AM [facility] Bands % 1.0 % LAB HEMETOLOGY METHOD 08/19/2024 11:47 AM [facility] Lymphocytes % 7.0 % LAB HEMETOLOGY METHOD 08/19/2024 11:47 AM [facility] Monocytes % 6.0 % LAB HEMETOLOGY METHOD 08/19/2024 11:47 AM [facility] Eosinophils % 1.0 % LAB HEMETOLOGY METHOD 08/19/2024 11:47 AM [facility] Basophils % 1.0 % LAB HEMETOLOGY METHOD 08/19/2024 11:47 AM [facility] Metamyelocytes % 5.0(H) % LAB HEMETOLOGY METHOD 08/19/2024 11:47 AM [facility] Myelocytes % 3.0(H) % LAB HEMETOLOGY METHOD 08/19/2024 11:47 AM [facility] Neutrophils Absolute Manual 14.44(H) 1.50 - 7.00 K/mcL LAB HEMETOLOGY METHOD 08/19/2024 11:47 AM [facility] Bands Absolute Manual 0.19(H) 0.00 - 0.00 K/mcL LAB HEMETOLOGY METHOD 08/19/2024 11:47 AM [facility] Lymphocytes Absolute 1.33 1.00 - 5.00 K/mcL LAB HEMETOLOGY METHOD 08/19/2024 11:47 AM [facility] Monocytes Absolute Manual 1.14(H) 0.20 - 1.00 K/mcL LAB HEMETOLOGY METHOD 08/19/2024 11:47 AM EDT [facility] Eosinophils Absolute Manual 0.19 0.00 - 0.50 K/mcL LAB HEMETOLOGY METHOD 08/19/2024 11:47 AM EDT [facility] Basophils Absolute Manual 0.19 0.00 - 0.20 K/mcL LAB HEMETOLOGY METHOD 08/19/2024 11:47 AM EDT [facility] Metamyelocytes Absolute Manual 0.95(H) 0.00 - 0.00 K/[facility] LAB HEMETOLOGY METHOD 08/19/2024 11:47 AM EDT [facility] Myelocytes Absolute Manual 0.57(H) 0.00 - 0.00 K/[facility] LAB HEMETOLOGY METHOD 08/19/2024 11:47 AM EDT [facility] Rbc Morphology See comment( A) Consistent with indices, Normal for [place] LAB HEMETOLOGY METHOD 08/19/2024 11:47 AM EDT [facility] Comment:RBC: Morphology agre es with CBC Platelet Morphology - WAM See Note(A) Normal LAB HEMETOLOGY METHOD 08/19/2024 11:47 AM EDT [facility] Comment:PLT: Large platelets seen Blood Venous blood specimen / Unknown Venipuncture / Unknown 08/19/2024 6:26 AM EDT 08/19/2024 10:44 AM EDT us Mary Ng MD LAB BLOOD ORDERABLES Final Res ult [facility] [address] [place] [address], * (ABNORMAL) CBC auto differential (08/19/2024 6:26 AM EDT) WBC 19.0(H) 4.8 - 10.8 K/mcL LAB HEMETOLOGY METHOD 08/19/2024 11:47 AM EDT [facility] RBC 4.00(L) 4.50 - 5.50 M/mcL LAB HEMETOLOGY METHOD 08/19/2024 11:47 AM [facility] Hemoglobin 12.1(L) 13.5 - 17.5 g/dL LAB HEMETOLOGY METHOD 08/19/2024 11:47 AM [facility] Hematocrit 38.4(L) 42.0 - 54.0 % LAB HEMETOLOGY METHOD 08/19/2024 11:47 AM [facility] MCV 95.8 79.0 - 98.0 FL LAB HEMETOLOGY METHOD 08/19/2024 11:47 AM [facility] MCH 30.2 27.0 - 32.0 pcg LAB HEMETOLOGY METHOD 08/19/2024 11:47 AM [facility] MCHC 31.5(L) 32.0 - 37.0 g/dL LAB HEMETOLOGY METHOD 08/19/2024 11:47 AM [facility] RDW 13.2 11.0 - 15.0 % LAB HEMETOLOGY METHOD 08/19/2024 11:47 AM [facility] Platelets 486(H) 130 - 400 K/mcL LAB HEMETOLOGY METHOD 08/19/2024 11:47 AM [facility] MPV 9.6 7.0 - 11.0 FL LAB HEMETOLOGY METHOD 08/19/2024 11:47 AM [facility] NRBC 0.0 <1.0 % LAB HEMETOLOGY METHOD 08/19/2024 11:47 AM [facility] NRBC Absolute 0.00 <0.10 K/mcL LAB HEMETOLOGY METHOD 08/19/2024 11:47 AM [facility] Blood Venous blood specimen / Unknown Venipuncture / Unknown 08/19/2024 6:26 AM EDT 08/19/2024 10:44 AM EDT Mary Ng MD LAB BLOOD ORDERABLES Final Res ult Performing Organization Address [facility]/ZIP Co de Phone Number [facility] [address] [place] [address], [place] [phone] * (ABNORMAL) Lipase (08/19/2024 6:26 AM EDT) Lipase 101(H) 13 - 75 unit/L LAB CHEMISTRY METHOD 08/19/2024 12:17 PM EDT [facility] Blood Venous blood specimen / Unknown Venipuncture / Unknown 08/19/2024 6:26 AM EDT 08/19/2024 10:44 AM EDT Mary Ng MD LAB BLOOD ORDERABLES Final Res ult Performing Organization Address [facility] [[email or web address]] Co de Phone Number [facility] [address] [place] [address], [place] [phone] * Amylase (08/19/2024 6:26 AM EDT) Pathologist [facility] Amylase 89 25 - 115 unit/L LAB CHEMISTRY METHOD 08/19/2024 12:04 PM EDT [facility] Blood Venous blood specimen / Unknown Venipuncture / Unknown 08/19/2024 6:26 AM EDT 08/19/2024 10:44 AM EDT Mary Ng MD LAB BLOOD ORDERABLES Final Res ult Performing Organization Address City/[facility]/ZIP Co de Phone Number [facility] [address] [place] [address], [place] [phone] * (ABNORMAL) Comprehensive metabolic panel (08/19/2024 6:26 AM EDT) Sodium 137 133 - 145 mmol/L LAB CHEMISTRY METHOD 08/19/2024 12:17 PM [facility] Potassium 4.2 3.5 - 5.5 mmol/L LAB CHEMISTRY METHOD 08/19/2024 12:17 PM [facility] Chloride 102 96 - 110 mmol/L LAB CHEMISTRY METHOD 08/19/2024 12:17 PM [facility] CO2 27 21 - 32 mmol/L LAB CHEMISTRY METHOD 08/19/2024 12:17 PM [facility] Anion Gap 8 3 - 11 LAB CHEMISTRY METHOD 08/19/2024 12:17 PM [facility] Glucose 73 70 - 100 mg/dL LAB CHEMISTRY METHOD 08/19/2024 12:17 PM [facility] BUN 20 5 - 25 mg/dL LAB CHEMISTRY METHOD 08/19/2024 12:17 PM [facility] Creatinine 0.97 0.70 - 1.30 mg/dL LAB CHEMISTRY METHOD 08/19/2024 12:17 PM [facility] eGFR 82 >=60 mL/min/1. 73m2 LAB CHEMISTRY METHOD 08/19/2024 12:17 PM [facility] Comment:Calculation based on the Chronic Kidney Disease Epidemiology Collaboration (CKD-EPI) equation refit without adjustment for race. BUN/Creatinine Ratio 20.6 LAB CHEMISTRY METHOD 08/19/2024 12:17 PM [facility] Calcium 8.8 8.5 - 10.5 mg/dL LAB CHEMISTRY METHOD 08/19/2024 12:17 PM [facility] AST (SGOT) 77(H) 10 - 42 unit/L LAB CHEMISTRY METHOD 08/19/2024 12:17 PM [facility] ALT (SGPT) 102(H) 10 - 60 unit/L LAB CHEMISTRY METHOD 08/19/2024 12:17 PM [facility] Alkaline Phosphatase 180(H) 42 - 121 unit/L LAB CHEMISTRY METHOD 08/19/2024 12:17 PM EDT [facility] Total Protein 5.9(L) 6.0 - 8.0 g/dL LAB CHEMISTRY METHOD 08/19/2024 12:17 PM EDT [facility] Albumin 2.8(L) 3.2 - 5.0 g/dL LAB CHEMISTRY METHOD 08/19/2024 12:17 PM EDT [facility] Total Bilirubin 0.8 0.0 - 1.4 mg/dL LAB CHEMISTRY METHOD 08/19/2024 12:17 PM EDT [facility] Blood Venous blood specimen / Unknown Venipuncture / Unknown 08/19/2024 6:26 AM EDT 08/19/2024 10:44 AM EDT us Mary Ng MD LAB BLOOD ORDERABLES Final Res ult [facility] [address] [place] [address], [place] [phone] documented in this encounter Visit Diagnoses Diagnosis Encounter for other general examination documented in this encounter Care Teams General Manager Farm Relationship Specialty Start Date End Date Mary Ng MD [address] [place] [phone] PCP - General Internal Medicine 08/14/24 documented as of this encounter
--- OUTSIDE RECORDS SUMMARY | 2024-11-06 09:13 | XMS_ITS | Encounter Summary ---
Author Organization [facility] Address [address] [place] [address] Phone Care Team Providers Care Colliery Clerk Name Role Phone Sandy Leon CASTING TESTER Primary Care Provider Encounter Details Date Type Department Care Team (Late st Contact Info) Description 03/08/2021 Procedure Pass [facility] for Outpatient Care, Radio Flouroscopy [address] [place] [address] Social History Tobacco Use Types Packs/Day Years Used Date Smoking Tobacco: Never Smokeless Tobacco: Never Alcohol Use Standard Drinks/Week Comments No 0 (1 standard drink = 0.6 oz pur e alcohol) Sex and Gender Information Value Date Recorded Sex Assigned at Male 09/21/2019 2:33 PM EDT Legal Sex Male 8:07 PM EST Gender Identity Male 09/21/2019 2:33 PM EDT Sexual Orientation Not on file documented as of this encounter Plan of Treatment Not on file documented as of this encounter Visit Diagnoses Not on filedocumented in this encounter Care Teams Colliery Clerk Relationship Specialty Start Date End Date Sandy Leon CASTING TESTER [address] [place] [address] PCP - General Nurse Practitioner 01/15/17 documented as of this encounter Additional Source Comments The information contained in this document represents components of the legal health record. It is not the complete legal health record.[facility]
== END 2024-11-06 09:01 | disposition home or self-care (01) ==
LOC: HO.BBR 09:00
PROVIDERS: Visit Provider Urology
DX: D75.1 Secondary polycythemia (principal)
CPT/HCPCS: 85018

== ENCOUNTER 2025-03-12 14:57 | Outpatient (REF) | payer MEDICARE, SELFPAY ==
--- OUTSIDE RECORDS SUMMARY | 2025-03-12 15:00 | XMS_ITS | Patient Health Record ---
Author Organization [facility] Shayna pily Mcneill Address [address] [facility] [place] [address] Care Team Providers Care Crib Tender Name Role Phone Julio Meneses NP Primary Care Provider Unavailab connie Mariluz Gomez Unavailable [phone] Allergies No Known Allergies Reason For Referral No Information Medications Medication SIG (Take, Route, Frequency, Duration) Notes Start Date End Date Status Venlafaxine HCl ER 37.5 MG Oral; Duration: 30 Days Active Donepezil HCl 5 MG Oral; Duration: 30 Days Active Testosterone Cypionate 200 MG/ML Intramuscular; Duration: 30 Days Active Ciclopirox Olamine 0.77 % 1 application Externally Twice a day; Duration: 30 days Active Valsartan 160 MG Oral; Duration: 90 Days Active Ciclopirox Olamine 0.77 % 1 application Externally Twice a day; Duration: 30 days Active Ammonium Lactate 12 % 1 application Exte rnally to affected areas of dry skin to feet except for between the toes Twice a day; Duration: 30 days Active Atorvastatin Calcium 80 MG TAKE 1 TABLET BY MOUTH EVERY DAY Oral; Duration: 90 Days Active Clopidogrel Bisulfate 75 MG TAKE 1 TABLE T BY MOUTH EVERY DAY Oral; Duration: 30 Days Active Immunizations Vaccine Route Administration Date Status Comme nts Influenza Unknown 10/29/2024 Refused Social History Tobacco Use: Social History Observation Description Date Details (start date - stop date) Never Smoker NA - NA Tobacco use other than smoking: Question Answer Notes Are you an other tobacco user? No Tobacco Control (Standard) Question Answer Notes Tobacco use: Nonsmoker Additional Findings: Tobacco non-user Current no nsmoker AUDIT-C (Standard) Question Answer Notes Did you have a drink containing alcohol in the p ast year? No Points 0 Interpretation Negative Problems Problem Type SNOMED Code ICD Code Onset Dates Problem Status W/U Status Risk Notes Problem Plantar wart (79903081) Plantar wart (B07.0) Active confirmed Problem Bilateral atherosclerosis of arteries of lower limbs (disorder) ([id number] ) Atherosclerosis of [place] artery of both lower extremities, with unspecified presence of clinical manifestation (I70.203) Active confirmed Q7(A), Q8(2B), Q9(1B,2 C) Vital Signs Blood pressure diastolic 80 mm Hg 01/28/2025 Height 5ft 10in in 01/28/2025 Blood pressure systolic 132 mm Hg 01/28/2025 Weight 230 lbs 01/28/2025 BMI 33 kg/m2 01/28/2025 Procedures Procedure Date Ordered Date Performed Result Body Sit e 62598-OJFLVOR NAIL, 6 OR MORE 04/09/2024 N/A 33187-Cnaz Destruction, 1-14 04/09/2024 N/A 05148-ERWW SKIN LESIONS, OVER 4 04/09/2024 N/A 31944-FWLQGHD NAIL, 6 OR MORE 07/16/2024 N/A 73477-Ucjh Destruction, 1-14 07/16/2024 N/A 68278-JXDJ SKIN LESIONS, OVER 4 07/16/2024 N/A 15689-QQGMAWP NAIL, 6 OR MORE 10/29/2024 N/A 95445-Edrc Destruction, 1-14 10/29/2024 N/A 99744-Johoyotf Plate 10/29/2024 N/A 02916-JIGA SKIN LESIONS, OVER 4 10/29/2024 N/A 43273- Removal of Foreign Body, Subcut 10/29/2024 N/A 84893-INYSNDL NAIL, 6 OR MORE 01/28/2025 N/A 79617-Vvch Destruction, 1-14 01/28/2025 N/A 67986-PSJC SKIN LESIONS, OVER 4 01/28/2025 N/A Encounters Encounter Location Date Provider Diagnosis [facility] [place] [address] [place] [address] 04/09/2024 Mariluz Black Onychomycosis B35.1 ; Verruca B07.9 ; Pain of toe of right foot M79.674 ; Pain of toe of left foot M79.675 ; Pain in right foot M79.671 ; Atherosclerosis of [place] artery of both lower extremities, with unspecified presence of clinical manifestation I70.203 and Xerosis of skin L85.[address] [address] 07/16/2024 Mariluz Black Onychomycosis B35.1 ; Verruca B07.9 ; Pain of toe of right foot M79.674 ; Pain of toe of left foot M79.675 ; Atherosclerosis of [place] artery of both lower extremities, with unspecified presence of clinical manifestation I70.203 ; Xerosis of skin L85.3 and Pain in left foot M79.[address] [address] 10/29/2024 Mariluz Black Onychomycosis B35.1 ; Verruca B07.9 ; Pain of toe of right foot M79.674 ; Pain of toe of left foot M79.675 ; Atherosclerosis of [place] artery of both lower extremities, with unspecified presence of clinical manifestation I70.203 ; Pain in left foot M79.672 ; Puncture wound with foreign body, left foot, initial encounter S91.342A ; Ingrown nail L60.0 and Laceration of left foot, initial encounter S91.312A [address] [address] 01/28/2025 Mariluz Black Onychomycosis B35.1 ; Verruca B07.9 ; Pain of toe of right foot M79.674 ; Pain of toe of left foot M79.675 ; Atherosclerosis of [place] artery of both lower extremities, with unspecified presence of clinical manifestation I70.203 and Pain in left foot M79.672 Assessments Encounter Date Diagnosis (ICD Code) Assessment Notes Treatment Notes Treatment Clinical Notes Section Notes 04/09/2024 Onychomycosis (ICD-10 - B35.1) 07/16/2024 Onychomycosis (ICD-10 - B35.1) l 10/29/2024 Onychomycosis (ICD-10 - B35.1) 01/28/2025 Onychomycosis (ICD-10 - B35.1) 01/28/2025 Verruca (ICD-10 - B07.9) 01/28/2025 Pain of toe of right foot (ICD-10 - M79.674) 07/16/2024 Verruca (ICD-10 - B07.9) l 07/16/2024 Pain of toe of right foot (ICD-10 - M79.674) l 10/29/2024 Verruca (ICD-10 - B07.9) 10/29/2024 Pain of toe of right foot (ICD-10 - M79.674) 04/09/2024 Verruca (ICD-10 - B07.9) 04/09/2024 Pain of toe of right foot (ICD-10 - M79.674) 07/16/2024 Pain of toe of left foot (ICD-10 - M79.675) l 10/29/2024 Pain of toe of left foot (ICD-10 - M79.675) 01/28/2025 Pain of toe of left foot (ICD-10 - M79.675) 10/29/2024 Atherosclerosis of [place] artery of both lower extremities, with unspecified presence of clinical manifestation (ICD-10 - I70.203) Q7(A), Q8(2B), Q9(1B,2C) 01/28/2025 Atherosclerosis of [place] artery of both lower extremities, with unspecified presence of clinical manifestation (ICD-10 - I70.203) Q7(A), Q8(2B), Q9(1B,2C) 04/09/2024 Pain of toe of left foot (ICD-10 - M79.675) 07/16/2024 Atherosclerosis of [place] artery of both lower extremities, with unspecified presence of clinical manifestation (ICD-10 - I70.203) Q7(A), Q8(2B), Q9(1B,2C) l 07/16/2024 Xerosis of skin (ICD-10 - L85.3) l 10/29/2024 Pain in left foot (ICD-10 - M79.672) 04/09/2024 Pain in right foot (ICD-10 - M79.671) 01/28/2025 Pain in left foot (ICD-10 - M79.672) 04/09/2024 Atherosclerosis of [place] artery of both lower extremities, with unspecified [...] Treatment Pending Test Test Name Order Date 93604-KQONUPJ NAIL, 6 OR MORE 11/08/2022 48301-CMOCILC NAIL, 6 OR MORE 02/14/2023 18742-YFQAQTX NAIL, 6 OR MORE 05/27/2023 16927-DNEUXDN NAIL, 6 OR MORE 09/09/2023 28782-LHJIPSJ NAIL, 6 OR MORE 12/23/2023 49215-PZRNMZC NAIL, 6 OR MORE 04/09/2024 55608-VDFRHRG NAIL, 6 OR MORE 07/16/2024 29373-AQOXOJN NAIL, 6 OR MORE 10/29/2024 81251-ZKXOVAQ NAIL, 6 OR MORE 01/28/2025 61587-Kasl Destruction, -01/28/2025 76469-Teaq Destruction, -10/29/2024 39646-Xepz Destruction, -04/09/2024 79481-Qcsy Destruction, -07/16/2024 98532-Bydp Destruction, -14 09/09/2023 95983-Panu Destruction, -12/23/2023 20461-Rvqj Destruction, -05/27/2023 51379-Oqsm Destruction, -11/08/2022 14305-Yhit Destruction, -02/14/2023 03013-Mbjstzvk Plate 10/29/2024 88968-EKYE SKIN LESIONS, OVER 4 10/30/19 25 17187-LLNI SKIN LESIONS, OVER 4 01/29/20 84183-YZBG SKIN LESIONS, OVER 4 12/23/19 78388-OIPE SKIN LESIONS, OVER 4 09/09/19 08868-KIVT SKIN LESIONS, OVER 4 04/09/19 88189-DIRH SKIN LESIONS, OVER 4 07/17/19 09781- Removal of Foreign Body, Subcut 0 10/29/2024 Next Appt Details Provider Name:Mariluz Gomez , 05/27/2025 08:30:00 AM, [address] [place] [address], [phone], Insurance Providers Payer Name Payer Address Payer Phone Subscriber Number Group Number Insured Name Patient Relationship to Insured Coverage Start Date Coverage End Date Medicare National [employer] [address] [place] [address] [id number] Avery Fernandes Self - [facility] the [facility] [address] [place] [address] [id number] Avery Fernandes Self - patient is the insured Medical (General) History Medical History History ICD Code Cancer Depression High blood pressure Polymyalgia rheumatica Surgical History Surgery Date(Month/Year) back surgery Stent x3 tonsillectomy colonoscopy right knee replacement 08/16/24 Hospitalization History Reason Date(Month/Year) [facility]- UTI 07/2023
--- OUTSIDE RECORDS SUMMARY | 2025-03-12 15:00 | XMS_ITS | Encounter Summary ---
Author Organization [facility] Address [address] [place] [address] Phone Care Team Providers Care Milking Worker Name Role Phone Sandy Leon HOUSEHOLD COOK Primary Care Provider [phone] Encounter Details Date Type Department Care Team (Late st Contact Info) Description 03/08/2021 Procedure Pass [facility], Radio Flouroscopy [address] [place] [address] Social History Tobacco Use Types Packs/Day Years [...] on filedocumented in this encounter Care Teams Milking Worker Relationship Specialty Start Date End Date Sandy Leon HOUSEHOLD COOK [address] [place] [address] PCP - General Nurse Practitioner 01/15/17 documented as of this encounter Additional Source Comments The information contained in this document represents components of the legal health record. It is not the complete legal health record.[facility]
--- OUTSIDE RECORDS SUMMARY | 2025-03-12 15:00 | XMS_ITS | Encounter Summary ---
Author Organization [facility] Address [address] [place] [address] Phone Care Team Providers Care Mulling Machine Operator Name Role Phone Sandy Leon CUSTOMER SERVICE CORRESPONDENCE CLERK Primary Care Provider Encounter Details Date Type Department Care Team (Late st Contact Info) Description 03/28/[address] [facility], Radio Flouroscopy [address] [place] [address] Priti Godfrey [address] [place] [phone] [email or web address] Social History Tobacco Use Types Packs/Day Years [...] on filedocumented in this encounter Care Teams Mulling Machine Operator Relationship Specialty Start Date End Date Sandy Leon, CUSTOMER SERVICE CORRESPONDENCE CLERK [address] [place] [address] PCP - General Nurse Practitioner 01/15/17 documented as of this encounter Additional Source Comments The information contained in this document represents components of the legal health record. It is not the complete legal health record.[facility]
--- OUTSIDE RECORDS SUMMARY | 2025-03-12 15:00 | XMS_ITS | Clinical Summary ---
Author Organization [facility] Address [address] [place] [address] Phone Care Team Providers Care Neighborhood Coordinator Name Role Phone Unavailable Primary Care Provider Unavailabl e Social History Tobacco Use Types Packs/Day Years Used Date Smoking Tobacco: Never Assessed Sex and Gender Information Value Date Recorded Sex Assigned at Not on file Legal Sex Male 4:52 AM EDT Gender Identity Not on file Sexual Orientation Not on file Last Filed Vital Signs Vital Sign Reading Time Taken Comments Blood Pressure 119/76 09/09/2021 5:33 AM EDT Pulse 92 09/09/2021 12:07 PM EDT Temperature 36.6 C (97.9 F) 09/09/2021 5:33 AM EDT Respiratory Rate 18 09/09/2021 5:33 AM EDT Oxygen Saturation 95% 09/09/2021 5:33 AM EDT Inhaled Oxygen Concentration - - Weight 95.3 kg (210 lb) 03/05/2022 12:02 AM EST Height 175.3 cm (5' 9 ) 03/05/2022 12:01 AM EST Body Mass Index 31.01 03/05/2022 12:01 AM EST Plan of Treatment Not on file
--- OUTSIDE RECORDS SUMMARY | 2025-03-12 15:01 | XMS_ITS | Clinical Summary ---
Author Organization [facility] Address [address] [place] [address] Care Team Providers Care Dispatcher Ship Pilot Name Role Phone ZairaJulio Alec VILLANUEVA Primary Care Provider [phone] Social History Tobacco Use Types Packs/Day Years Used Date Smoking Tobacco: Never Assessed Sex and Gender Information Value Date Recorded Sex Assigned at Not on file Legal Sex Male 6:31 AM EST Gender Identity Not on file Sexual Orientation Not on file Plan of Treatment Upcoming Encounters Date Type Department Care Team (Late st Contact Info) Description 04/07/2025 3:45 PM EST Office Visit Department of Urology [facility] [address] [place] [address] Jon Stinson MD [address] [place] [address] In [place] [id number] [employer] MEDICARE Member Subscriber Plan / Payer (Ef fective 2015-) Name:Avery Fernandes Member ID:[id number] Relation to Subscriber:Self Name:Avery Fernandes Subscriber ID:[id number] Payer ID:Not on file Group ID:Not on file Type:Traditional / Indemnity Address: [place] [phone] [employer] MED[employer]ARE MEDEX Care Teams Dispatcher Ship Pilot Relationship Specialty Start Date End Date Julio Meneses NP [address] [place] [address] PCP - General Nurse Practitioner 01/06/25
--- OUTSIDE RECORDS SUMMARY | 2025-03-12 15:01 | XMS_ITS | Encounter Summary ---
Author Organization [facility] Address [address] [place] [address] Phone Care Team Providers Care Service Mechanic Name Role Phone Sandy Leon SERVICE TECH/WELDER Primary Care Provider Encounter Details Date Type Department Care Team (Late st Contact Info) Description 05/16/2017 Procedure Pass [facility], [address] [place] [address] Social History Tobacco Use Types Packs/Day Years [...] on filedocumented in this encounter Care Teams Service Mechanic Relationship Specialty Start Date End Date Sandy Leon, SERVICE TECH/WELDER [address] [place] [address] PCP - General Nurse Practitioner 01/15/17 documented as of this encounter Additional Source Comments The information contained in this document represents components of the legal health record. It is not the complete legal health record.[facility]
--- OUTSIDE RECORDS SUMMARY | 2025-03-12 15:01 | XMS_ITS | Encounter Summary ---
Author Organization [facility] Address [address] [place] [address] Care Team Providers Care Sales Apprentice Name Role Phone Mary Ng MD Primary Care Provider [phone] Encounter Details Date Type Department Care Team (Late st Contact Info) Description 08/18/2024 Lab Requisition [facility] - Main Lab [address] [facility] [place] [address] Mary Ng MD [address] [place] [address] Encounter for other general examination Social History [...] Comments MANUAL DIFFERENTIAL - SYSMEX WAM Routine 08/18/2024 5:56 AM EDT Encounter for other general examination CBC WITH AUTO DIFFERENTIAL Routine 08/18/2024 5:56 AM EDT Encounter for other general examination CBC AND DIFFERENTIAL Routine 08/18/2024 5:56 AM EDT Encounter for other general examination COMPREHENSIVE METABOLIC PANEL Routine 08/18/2024 5:56 AM EDT Encounter for other general examination documented in this encounter Results * (ABNORMAL) Manual differential (08/18/2024 5:56 AM EDT) Neutrophils % 73.0 % LAB HEMETOLOGY METHOD 12:05 PM [facility] Bands % 1.0 % LAB HEMETOLOGY METHOD 5 12:05 PM [facility] Lymphocytes % 8.0 % LAB HEMETOLOGY METHOD 5 12:05 PM [facility] Monocytes % 11.0 % LAB HEMETOLOGY METHOD 5 12:05 PM [facility] Eosinophils % 2.0 % LAB HEMETOLOGY METHOD 5 12:05 PM [facility] Basophils % 1.0 % LAB HEMETOLOGY METHOD 5 12:05 PM [facility] Metamyelocytes % 2.0(H) % LAB HEMETOLOGY METHOD 5 12:05 PM [facility] Myelocytes % 3.0(H) % LAB HEMETOLOGY METHOD 5 12:05 PM [facility] Neutrophils Absolute Manual 14.09(H) 1.50 - 7.00 K/mcL LAB HEMETOLOGY METHOD 5 12:05 PM [facility] Bands Absolute Manual 0.19(H) 0.00 - 0.00 K/mcL LAB HEMETOLOGY METHOD 5 12:05 PM [facility] Lymphocytes Absolute 1.54 1.00 - 5.00 K/mcL LAB HEMETOLOGY METHOD 5 12:05 PM [facility] Monocytes Absolute Manual 2.12(H) 0.20 - 1.00 K/mcL LAB HEMETOLOGY METHOD 5 12:05 PM [facility] Eosinophils Absolute Manual 0.39 0.00 - 0.50 K/mcL LAB HEMETOLOGY METHOD 5 12:05 PM [facility] Basophils Absolute Manual 0.19 0.00 - 0.20 K/mcL LAB HEMETOLOGY METHOD 5 12:05 PM EDT [facility] Metamyelocytes Absolute Manual 0.39(H) 0.00 - 0.00 K/mcL LAB HEMETOLOGY METHOD 5 12:05 PM EDT [facility] Myelocytes Absolute Manual 0.58(H) 0.00 - 0.00 K/mcL LAB HEMETOLOGY METHOD 5 12:05 PM EDT [facility] Rbc Morphology Consistent with indices Consistent with indices, Normal for [place] LAB HEMETOLOGY METHOD 12:05 PM EDT [facility] Platelet Morphology - WAM See Note(A) Normal LAB HEMETOLOGY METHOD 12:05 PM EDT [facility] Comment:PLT: Large platelets seen Large platelets seen Blood Venous blood specimen / Unknown Venipuncture / Unknown 08/18/2024 5:56 AM EDT 08/18/2024 9:46 AM EDT us Mary Ng MD LAB BLOOD ORDERABLES Final Res ult [facility] [address] [place] [address], * (ABNORMAL) CBC auto differential (08/18/2024 5:56 AM EDT) WBC 19.3(H) 4.8 - 10.8 K/mcL LAB HEMETOLOGY METHOD 08/18/2024 12:05 PM EDT [facility] RBC 4.00(L) 4.50 - 5.50 M/mcL LAB HEMETOLOGY METHOD 08/18/2024 12:05 PM EDT [facility] Hemoglobin 12.4(L) 13.5 - 17.5 g/dL LAB HEMETOLOGY METHOD 08/18/2024 12:05 PM EDT [facility] Hematocrit 38.5(L) 42.0 - 54.0 % LAB HEMETOLOGY METHOD 08[facility]24 [facility] MCV 96.0 79.0 - 98.0 FL LAB HEMETOLOGY METHOD 08/18/2024 12[facility] MCH 30.9 27.0 - 32.0 pcg LAB HEMETOLOGY METHOD 08/18/2024 12:[facility] MCHC 32.2 32.0 - 37.0 g/dL LAB HEMETOLOGY METHOD 08/18/2024 12:05 PM [facility] RDW 12.9 11.0 - 15.0 % LAB HEMETOLOGY METHOD 08/18/2024 12:05 PM [facility] Platelets 493(H) 130 - 400 K/mcL LAB HEMETOLOGY METHOD 08/18/2024 12:05 [facility] MPV 9.5 7.0 - 11.0 FL LAB HEMETOLOGY METHOD 08/18/2024 12:05 PM [facility] NRBC 0.1 <1.0 % LAB HEMETOLOGY METHOD 08/18/2024 12:05 PM [facility] NRBC Absolute 0.02 <0.10 K/mcL LAB HEMETOLOGY METHOD 08/18/2024 12:05 PM [facility] Blood Venous blood specimen / Unknown Venipuncture / Unknown 08/18/2024 5:56 AM EDT 08/18/2024 9:46 AM EDT us Mary Ng MD LAB BLOOD ORDERABLES Final Res ult [facility] [address] [place] [address], [place] [phone] * (ABNORMAL) Comprehensive metabolic panel (08/18/2024 5:56 AM EDT) Sodium 139 133 - 145 mmol/L LAB CHEMISTRY METHOD 08/18/2024 11:32 AM [facility] Potassium 4.2 3.5 - 5.5 mmol/L LAB CHEMISTRY METHOD 08/18/2024 11:32 AM [facility] Chloride 104 96 - 110 mmol/L LAB CHEMISTRY METHOD 08/18/2024 11:32 AM [facility] CO2 27 21 - 32 mmol/L LAB CHEMISTRY METHOD 08/18/2024 11:32 AM [facility] Anion Gap 8 3 - 11 LAB CHEMISTRY METHOD 08/18/2024 11:32 AM [facility] Glucose 69(L) 70 - 100 mg/dL LAB CHEMISTRY METHOD 08/18/2024 11:32 AM [facility] BUN 21 5 - 25 mg/dL LAB CHEMISTRY METHOD 08/18/2024 11:32 AM [facility] Creatinine 0.94 0.70 - 1.30 mg/dL LAB CHEMISTRY METHOD 08/18/2024 11:32 AM [facility] eGFR 85 >=60 mL/min/1. 73m2 LAB CHEMISTRY METHOD 08/18/2024 11:32 AM [facility] Comment:Calculation based on the Chronic Kidney Disease Epidemiology Collaboration (CKD-EPI) equation refit without adjustment for race. BUN/Creatinine Ratio 22.3 LAB CHEMISTRY METHOD 08/18/2024 11:32 AM [facility] Calcium 8.7 8.5 - 10.5 mg/dL LAB CHEMISTRY METHOD 08/18/2024 11:32 AM [facility] AST (SGOT) 114(H) 10 - 42 unit/L LAB CHEMISTRY METHOD 08/18/2024 11:32 AM EDT [facility] ALT (SGPT) 124(H) 10 - 60 unit/L LAB CHEMISTRY METHOD 08/18/2024 11:32 AM EDT [facility] Alkaline Phosphatase 205(H) 42 - 121 unit/L LAB CHEMISTRY METHOD 08/18/2024 11:32 AM [facility] Total Protein 6.3 6.0 - 8.0 g/dL LAB CHEMISTRY METHOD 08/18/2024 11:32 AM [facility] Albumin 2.8(L) 3.2 - 5.0 g/dL LAB CHEMISTRY METHOD 08/18/2024 11:32 AM [facility] Total Bilirubin 0.8 0.0 - 1.4 mg/dL LAB CHEMISTRY METHOD 08/18/2024 11:32 AM [facility] Blood Venous blood specimen / Unknown Venipuncture / Unknown 08/18/2024 5:56 AM EDT 08/18/2024 9:46 AM EDT us Mary Ng MD LAB BLOOD ORDERABLES Final Res ult [facility] [address] [place] [address], [place] [phone] documented in this encounter Visit Diagnoses Diagnosis Encounter for other general examination documented in this encounter Care Teams Sales Apprentice Relationship Specialty Start Date End Date Mary Ng MD [address] [place] [address] PCP - General Internal Medicine 08/14/24 documented as of this encounter
--- OUTSIDE RECORDS SUMMARY | 2025-03-12 15:01 | XMS_ITS | Encounter Summary ---
Author Organization [facility] Address [address] [place] [address] Care Team Providers Care Design Consultant Name Role Phone Mary Ng MD Primary Care Provider [phone] Encounter Details Date Type Department Care Team (Late st Contact Info) Description 08/19/2024 Lab Requisition [facility] - Main Lab [address] [facility] [place] [address] Mary Ng MD [address] [place] [phone] Encounter for other general examination Social History [...] % LAB HEMETOLOGY METHOD 08/19/2024 11:47 AM [facility] Bands % 1.0 % LAB HEMETOLOGY METHOD 08/19/2024 11:47 AM [facility] Lymphocytes % 7.0 % LAB HEMETOLOGY METHOD 08/19/2024 11:47 AM [facility] Monocytes % 6.0 % LAB HEMETOLOGY METHOD 08/19/2024 11:47 AM [facility] Eosinophils % 1.0 % LAB HEMETOLOGY METHOD 08/19/2024 11:47 AM [facility] Basophils % 1.0 % LAB HEMETOLOGY METHOD 08/19/2024 11:47 AM [facility] Metamyelocytes % 5.0(H) % LAB HEMETOLOGY METHOD 08/19/2024 11:47 AM [facility] Myelocytes % 3.0(H) % LAB HEMETOLOGY METHOD 08/19/2024 11:47 AM [facility] Neutrophils Absolute Manual 14.44(H) 1.50 - 7.00 K/mcL LAB HEMETOLOGY METHOD 08/19/2024 11:47 AM [facility] Bands Absolute Manual 0.19(H) 0.00 - 0.00 K/mcL LAB HEMETOLOGY METHOD 08/19/2024 11:47 AM [facility] Lymphocytes Absolute 1.33 1.00 - 5.00 K/mcL LAB HEMETOLOGY METHOD 08/19/2024 11:47 AM [facility] Monocytes Absolute Manual 1.14(H) 0.20 - 1.00 K/mcL LAB HEMETOLOGY METHOD 08/19/2024 11:47 AM EDT [facility] Eosinophils Absolute Manual 0.19 0.00 - 0.50 K/mcL LAB HEMETOLOGY METHOD 08/19/2024 11:47 AM EDT [facility] Basophils Absolute Manual 0.19 0.00 - 0.20 K/mcL LAB HEMETOLOGY METHOD 08/19/2024 11:47 AM EDT [facility] Metamyelocytes Absolute Manual 0.95(H) 0.00 - 0.00 K/[facility] LAB HEMETOLOGY METHOD 08/19/2024 11:47 AM EDT [facility] Myelocytes Absolute Manual 0.57(H) 0.00 - 0.00 K/[facility] LAB HEMETOLOGY METHOD 08/19/2024 11:47 AM EDT [facility] Rbc Morphology See comment( A) Consistent with indices, Normal for LAB HEMETOLOGY METHOD 08/19/2024 11:47 AM EDT [facility] Comment:RBC: Morphology agre es with CBC Platelet Morphology - WAM See Note(A) Normal LAB HEMETOLOGY METHOD 08/19/2024 11:47 AM EDT [facility] Comment:PLT: Large platelets seen Blood Venous blood specimen / Unknown Venipuncture / Unknown 08/19/2024 6:26 AM EDT 08/19/2024 10:44 AM EDT us Mary Ng MD LAB BLOOD ORDERABLES Final Res ult [facility] [address] [place] [address], * (ABNORMAL) CBC auto differential (08/19/2024 6:26 AM EDT) WBC 19.0(H) 4.8 - 10.8 K/mcL LAB HEMETOLOGY METHOD 08/19/2024 11:47 AM EDT [facility] RBC 4.00(L) 4.50 - 5.50 M/mcL LAB HEMETOLOGY METHOD 08/19/2024 11:47 AM [facility] Hemoglobin 12.1(L) 13.5 - 17.5 g/dL LAB HEMETOLOGY METHOD 08/19/2024 11:47 AM [facility] Hematocrit 38.4(L) 42.0 - 54.0 % LAB HEMETOLOGY METHOD 08/19/2024 11:47 AM [facility] MCV 95.8 79.0 - 98.0 FL LAB HEMETOLOGY METHOD 08/19/2024 11:47 AM [facility] MCH 30.2 27.0 - 32.0 pcg LAB HEMETOLOGY METHOD 08/19/2024 11:47 AM [facility] MCHC 31.5(L) 32.0 - 37.0 g/dL LAB HEMETOLOGY METHOD 08/19/2024 11:47 AM [facility] RDW 13.2 11.0 - 15.0 % LAB HEMETOLOGY METHOD 08/19/2024 11:47 AM [facility] Platelets 486(H) 130 - 400 K/mcL LAB HEMETOLOGY METHOD 08/19/2024 11:47 AM [facility] MPV 9.6 7.0 - 11.0 FL LAB HEMETOLOGY METHOD 08/19/2024 11:47 AM [facility] NRBC 0.0 <1.0 % LAB HEMETOLOGY METHOD 08/19/2024 11:47 AM [facility] NRBC Absolute 0.00 <0.10 K/mcL LAB HEMETOLOGY METHOD 08/19/2024 11:47 AM [facility] Blood Venous blood specimen / Unknown Venipuncture / Unknown 08/19/2024 6:26 AM EDT 08/19/2024 10:44 AM EDT Mary Ng MD LAB BLOOD ORDERABLES Final Res ult Performing Organization Address [facility]/ZIP Co de Phone Number [facility] [address] [place] [address], [place] [phone] * (ABNORMAL) Lipase (08/19/2024 6:26 AM EDT) Lipase 101(H) 13 - 75 unit/L LAB CHEMISTRY METHOD 08/19/2024 12:17 PM EDT [facility] Blood Venous blood specimen / Unknown Venipuncture / Unknown 08/19/2024 6:26 AM EDT 08/19/2024 10:44 AM EDT Mary Ng MD LAB BLOOD ORDERABLES Final Res ult Performing Organization Address [facility] Co de Phone Number [facility] [address] [place] [address], [place] [phone] * Amylase (08/19/2024 6:26 AM EDT) Pathologist [facility] Amylase 89 25 - 115 unit/L LAB CHEMISTRY METHOD 08/19/2024 12:04 PM EDT [facility] Blood Venous blood specimen / Unknown Venipuncture / Unknown 08/19/2024 6:26 AM EDT 08/19/2024 10:44 AM EDT Mary Ng MD LAB BLOOD ORDERABLES Final Res ult Performing Organization Address City/[facility]/ZIP Co de Phone Number [facility] [address] [place] [address], [place] [phone] * (ABNORMAL) Comprehensive metabolic panel (08/19/2024 6:26 AM EDT) Sodium 137 133 - 145 mmol/L LAB CHEMISTRY METHOD 08/19/2024 12:17 PM [facility] Potassium 4.2 3.5 - 5.5 mmol/L LAB CHEMISTRY METHOD 08/19/2024 12:17 PM [facility] Chloride 102 96 - 110 mmol/L LAB CHEMISTRY METHOD 08/19/2024 12:17 PM [facility] CO2 27 21 - 32 mmol/L LAB CHEMISTRY METHOD 08/19/2024 12:17 PM [facility] Anion Gap 8 3 - 11 LAB CHEMISTRY METHOD 08/19/2024 12:17 PM [facility] Glucose 73 70 - 100 mg/dL LAB CHEMISTRY METHOD 08/19/2024 12:17 PM [facility] BUN 20 5 - 25 mg/dL LAB CHEMISTRY METHOD 08/19/2024 12:17 PM [facility] Creatinine 0.97 0.70 - 1.30 mg/dL LAB CHEMISTRY METHOD 08/19/2024 12:17 PM [facility] eGFR 82 >=60 mL/min/1. 73m2 LAB CHEMISTRY METHOD 08/19/2024 12:17 PM [facility] Comment:Calculation based on the Chronic Kidney Disease Epidemiology Collaboration (CKD-EPI) equation refit without adjustment for race. BUN/Creatinine Ratio 20.6 LAB CHEMISTRY METHOD 08/19/2024 12:17 PM [facility] Calcium 8.8 8.5 - 10.5 mg/dL LAB CHEMISTRY METHOD 08/19/2024 12:17 PM [facility] AST (SGOT) 77(H) 10 - 42 unit/L LAB CHEMISTRY METHOD 08/19/2024 12:17 PM [facility] ALT (SGPT) 102(H) 10 - 60 unit/L LAB CHEMISTRY METHOD 08/19/2024 12:17 PM [facility] Alkaline Phosphatase 180(H) 42 - 121 unit/L LAB CHEMISTRY METHOD 08/19/2024 12:17 PM EDT [facility] Total Protein 5.9(L) 6.0 - 8.0 g/dL LAB CHEMISTRY METHOD 08/19/2024 12:17 PM EDT [facility] Albumin 2.8(L) 3.2 - 5.0 g/dL LAB CHEMISTRY METHOD 08/19/2024 12:17 PM EDT [facility] Total Bilirubin 0.8 0.0 - 1.4 mg/dL LAB CHEMISTRY METHOD 08/19/2024 12:17 PM EDT [facility] Blood Venous blood specimen / Unknown Venipuncture / Unknown 08/19/2024 6:26 AM EDT 08/19/2024 10:44 AM EDT us Mary Ng MD LAB BLOOD ORDERABLES Final Res ult [facility] [address] [place] [address], [place] [phone] documented in this encounter Visit Diagnoses Diagnosis Encounter for other general examination documented in this encounter Care Teams Design Consultant Relationship Specialty Start Date End Date Mary Ng MD [address] [place] [phone] PCP - General Internal Medicine 08/14/24 documented as of this encounter
--- OUTSIDE RECORDS SUMMARY | 2025-03-12 15:01 | XMS_ITS | Encounter Summary ---
Author Organization [facility] Address [address] [place] [address] Phone Care Team Providers Care Gastroenterology Nurse Practitioner Name Role Phone Sandy Leon DIRECTOR SALES [employer] MARKETING Primary Care Provider [phone] Encounter Details Date Type Department Care Team (Late st Contact Info) Description 12/15/2018 Ancillary Orders [facility] [address] [place] [phone] William Price DO [address] [place] [address] Orthopedics & Sports Medicine, [place] [address] [email or web address] Social History Tobacco Use Types Packs/Day Years [...] on filedocumented in this encounter Care Teams Gastroenterology Nurse Practitioner Relationship Specialty Start Date End Date Sandy Leon NP [address] [place] [phone] PCP - General Nurse Practitioner 01/15/17 documented as of this encounter Additional Source Comments The information contained in this document represents components of the legal health record. It is not the complete legal health record.[facility]
--- OUTSIDE RECORDS SUMMARY | 2025-03-12 15:01 | XMS_ITS | Clinical Summary ---
Author Organization [facility] Address [address] [place] [address] Phone Care Team Providers Care Hand Funnel Coater Name Role Phone Mary Ng MD Primary Care Provider [phone] Social History Tobacco Use Types Packs/Day Years Used Date Smoking Tobacco: Never Assessed Sex and Gender Information Value Date Recorded Sex Assigned at Not on file Legal Sex Male 10:19 AM EST Gender Identity Not on file Sexual Orientation Not on file Plan of Treatment Health Maintenance Due Date Last Done Comments Colorectal Cancer Screening: Colonoscopy 1950 DTaP,Tdap,and Td Vaccines (1 - Tdap) 1969 Pneumococcal Vaccine: 50+ Ye ars (1 of 1 - PCV) 2000 Zoster Vaccines (1 of 2) 2000 Abdominal Aortic Aneurysm (A AA) Screen 02/13/2022 Cholesterol Screening (Lipid Panel) 02/13/2022 Falls Risk Assessment 02/13/2022 Hepatitis C Screening 02/13/2022 Medicare Annual Wellness Visit 02/13/2022 Social Influencers of Health Screening 02/13/2022 Depression Screening 03/18/2024 COVID-19 Vaccine (2 - 2024-2 6 season) 2024 06/25/2020 Influenza Vaccine (#1) 2024 RSV Immunization Adult Patie nts (1 - 1-dose 75+ series) 2025 HIB Vaccines Aged Out No longer eligi ble based on patient's age to complete this topic HPV Vaccines Aged Out No longer eligi ble based on patient's age to complete this topic Hepatitis A Vaccines Aged Out No long er eligible based on patient's age to complete this topic Hepatitis B Vaccines Aged Out No long er eligible based on patient's age to complete this topic IPV Vaccines Aged Out No longer eligi ble based on patient's age to complete this topic MMR Vaccines Aged Out No longer eligi ble based on patient's age to complete this topic Meningococcal ACWY Vaccine Aged Out N o longer eligible based on patient's age to complete this topic Meningococcal B Vaccine Aged Out No l onger eligible based on patient's age to complete this topic RSV Immunization Patients Un conor 20 months Aged Out No longer eligible b ased on patient's age to complete this topic Varicella Vaccines Aged Out No longer eligible based on patient's age to complete this topic Insurance MEDICARE [facility] Care Teams Hand Funnel Coater Relationship Specialty Start Date End Date Mary Ng MD [address] [place] [phone] PCP - General Internal Medicine 08/14/24
--- OUTSIDE RECORDS SUMMARY | 2025-03-12 15:01 | XMS_ITS | Encounter Summary ---
Author Organization [facility] Address [address] [place] [address] Care Team Providers Care Snailer Name Role Phone Mary Ng MD Primary Care Provider [phone] Encounter Details Date Type Department Care Team (Late st Contact Info) Description 08/14/2024 Lab Requisition [facility] - Main Lab [address] [facility] [place] [address] Mary Ng MD [address] [place] [address] Encounter for other general examination Social History [...] Comments MANUAL DIFFERENTIAL - SYSMEX WAM Routine 08/14/2024 6:52 AM EDT Encounter for other general examination CBC WITH AUTO DIFFERENTIAL Routine 08/14/2024 6:52 AM EDT Encounter for other general examination CBC AND DIFFERENTIAL Routine 08/14/2024 6:52 AM EDT Encounter for other general examination MAGNESIUM Routine 08/14/2024 6:52 AM EDT Encounter for other general examination COMPREHENSIVE METABOLIC PANEL Routine 08/14/2024 6:52 AM EDT Encounter for other general examination documented in this encounter Results * (ABNORMAL) Manual differential (08/14/2024 6:52 AM EDT) Neutrophils % 88.0 % LAB HEMETOLOGY METHOD 08/14/2024 11:33 AM [facility] Bands % 5.0 % LAB HEMETOLOGY METHOD 08/14/2024 11:33 AM [facility] Lymphocytes % 1.0 % LAB HEMETOLOGY METHOD 08/14/2024 11:33 AM [facility] Monocytes % 5.0 % LAB HEMETOLOGY METHOD 08/14/2024 11:33 AM [facility] Eosinophils % 0.0 % LAB HEMETOLOGY METHOD 08/14/2024 11:33 AM [facility] Basophils % 1.0 % LAB HEMETOLOGY METHOD 08/14/2024 11:33 AM [facility] Neutrophils Absolute Manual 22.70(H) 1.50 - 7.00 K/mcL LAB HEMETOLOGY METHOD 08/14/2024 11:33 AM [facility] Bands Absolute Manual 1.29(H) 0.00 - 0.00 K/mcL LAB HEMETOLOGY METHOD 08/14/2024 11:33 AM [facility] Lymphocytes Absolute 0.26(L) 1.00 - 5.00 K/mcL LAB HEMETOLOGY METHOD 08/14/2024 11:33 AM [facility] Monocytes Absolute Manual 1.29(H) 0.20 - 1.00 K/mcL LAB HEMETOLOGY METHOD 08/14/2024 11:33 AM [facility] Eosinophils Absolute Manual 0.00 0.00 - 0.50 K/mcL LAB HEMETOLOGY METHOD 08/14/2024 11:33 AM [facility] Basophils Absolute Manual 0.26(H) 0.00 - 0.20 K/mcL LAB HEMETOLOGY METHOD 08/14/2024 11:33 AM EDT [facility] Rbc Morphology Consistent with indices Consistent with indices, Normal for [place] LAB HEMETOLOGY METHOD 08/14/2024 11:33 AM EDT [facility] Platelet Morphology - WAM Large Platelets Seen(A) Normal LAB HEMETOLOGY METHOD 08/14/2024 11:33 AM EDT [facility] Blood Venous blood specimen / Unknown Venipuncture / Unknown 08/14/2024 6:52 AM EDT 08/14/2024 9:19 AM EDT us Mary Ng MD LAB BLOOD ORDERABLES Final Res ult [facility] [address] [place] [address], [place] [phone] * (ABNORMAL) CBC auto differential (08/14/2024 6:52 AM EDT) WBC 25.8(H) 4.8 - 10.8 K/mcL LAB HEMETOLOGY METHOD 08/14/2024 11:33 AM T [facility] RBC 3.80(L) 4.50 - 5.50 M/mcL LAB HEMETOLOGY METHOD 08/14/2024 11:33 AM [facility] Hemoglobin 11.2(L) 13.5 - 17.5 g/dL LAB HEMETOLOGY METHOD 08/14/2024 11:33 AM [facility] Hematocrit 35.3(L) 42.0 - 54.0 % LAB HEMETOLOGY METHOD 08/14/2024 11:33 AM EDT [facility] MCV 93.9 79.0 - 98.0 FL LAB HEMETOLOGY METHOD 08/14/2024 11:33 AM [facility] MCH 29.8 27.0 - 32.0 pcg LAB HEMETOLOGY METHOD 08/14/2024 11:33 AM [facility] MCHC 31.7(L) 32.0 - 37.0 g/dL LAB HEMETOLOGY METHOD 08/14/2024 11:33 AM EDT [facility] RDW 13.2 11.0 - 15.0 % LAB HEMETOLOGY METHOD 08/14/2024 11:33 AM EDT [facility] Platelets 382 130 - 400 K/mcL LAB HEMETOLOGY METHOD 08/14/2024 11:33 AM EDT [facility] MPV 9.8 7.0 - 11.0 FL LAB HEMETOLOGY METHOD 08/14/2024 11:33 AM EDT [facility] NRBC 0.0 <1.0 % LAB HEMETOLOGY METHOD 08/14/2024 11:33 AM EDT [facility] NRBC Absolute 0.00 <0.10 K/mcL LAB HEMETOLOGY METHOD 08/14/2024 11:33 AM EDT [facility] Blood Venous blood specimen / Unknown Venipuncture / Unknown 08/14/2024 6:52 AM EDT 08/14/2024 9:19 AM EDT us Mary Ng MD LAB BLOOD ORDERABLES Final Res ult [facility] [address] [place] [address], * Magnesium (08/14/2024 6:52 AM EDT) Magnesium 2.3 1.9 - 2.6 mg/dL LAB CHEMISTRY METHOD 08/14/2024 11:04 AM EDT [facility] Blood Venous blood specimen / Unknown Venipuncture / Unknown 08/14/2024 6:52 AM EDT 08/14/2024 9:19 AM EDT us Mary Ng MD LAB BLOOD ORDERABLES Final Res ult [facility] [address] [place] [address], * (ABNORMAL) Comprehensive metabolic panel (08/14/2024 6:52 AM EDT) Sodium 138 133 - 145 mmol/L LAB CHEMISTRY METHOD 08/14/2024 11:06 AM [facility] Potassium 4.4 3.5 - 5.5 mmol/L LAB CHEMISTRY METHOD 08/14/2024 11:06 AM [facility] Chloride 102 96 - 110 mmol/L LAB CHEMISTRY METHOD 08/14/2024 11:06 AM [facility] CO2 23 21 - 32 mmol/L LAB CHEMISTRY METHOD 08/14/2024 11:06 AM [facility] Anion Gap 13(H) 3 - 11 LAB CHEMISTRY METHOD 08/14/2024 11:06 AM [facility] Glucose 68(L) 70 - 100 mg/dL LAB CHEMISTRY METHOD 08/14/2024 11:06 AM [facility] BUN 32(H) 5 - 25 mg/dL LAB CHEMISTRY METHOD 08/14/2024 11:06 AM [facility] Creatinine 1.04 0.70 - 1.30 mg/dL LAB CHEMISTRY METHOD 08/14/2024 11:06 AM [facility] eGFR 75 >=60 mL/min/1. 73m2 LAB CHEMISTRY METHOD 08/14/2024 11:06 AM [facility] Comment:Calculation based on the Chronic Kidney Disease Epidemiology Collaboration (CKD-EPI) equation refit without adjustment for race. BUN/Creatinine Ratio 30.8 LAB CHEMISTRY METHOD 08/14/2024 11:06 AM [facility] Calcium 8.6 8.5 - 10.5 mg/dL LAB CHEMISTRY METHOD 08/14/2024 11:06 AM [facility] AST (SGOT) 124(H) 10 - 42 unit/L LAB CHEMISTRY METHOD 08/14/2024 11:06 AM [facility] ALT (SGPT) 81(H) 10 - 60 unit/L LAB CHEMISTRY METHOD 08/14/2024 11:06 AM [facility] Alkaline Phosphatase 180(H) 42 - 121 unit/L LAB CHEMISTRY METHOD 08/14/2024 11:06 AM [facility] Total Protein 6.0 6.0 - 8.0 g/dL LAB CHEMISTRY METHOD 08/14/2024 11:06 AM [facility] Albumin 2.6(L) 3.2 - 5.0 g/dL LAB CHEMISTRY METHOD 08/14/2024 11:06 AM [facility] Total Bilirubin 1.5(H) 0.0 - 1.4 mg/dL LAB CHEMISTRY METHOD 08/14/2024 11:06 AM [facility] Blood Venous blood specimen / Unknown Venipuncture / Unknown 08/14/2024 6:52 AM EDT 08/14/2024 9:19 AM EDT us Mary Ng MD LAB BLOOD ORDERABLES Final Res ult [facility] [address] [place] [address], documented in this encounter Visit Diagnoses Diagnosis Encounter for other general examination documented in this encounter Care Teams Snailer Relationship Specialty Start Date End Date Mary Ng MD [address] [place] [phone] PCP - General Internal Medicine 08/14/24 documented as of this encounter
--- OUTSIDE RECORDS SUMMARY | 2025-03-12 15:01 | XMS_ITS | Clinical Summary ---
Author Organization [facility] Address [address] [facility] [address] [place] [address] Phone Care Team Providers Care Traffic Workforce Representative Name Role Phone Sandy Leon NP Primary Care Provider Allergies No known active allergies Medications losartan (COZAAR) 100 MG tablet Take 50 mg by mouth daily. Active hydroCHLOROthiaz sapphire (HYDRODIURIL) 25 MG tablet Take 25 mg by mouth daily. 7 Active lisinopril (PRINIVIL,ZESTRI L) 5 MG tablet Take 5 mg by mouth daily. 7 Active testosterone cypionate (DEPO-TESTOTERON E) 200 mg/mL IM injection INJECT 1/2CC IM ONCE WEEKLY DIRECTED BY MD James 7 Active vitamin E 400 UNIT capsule Take [...] by mouth 2 (two) times a day. 9 Active Additional Information Patient not taking.Reported on 09/23/2019 DULoxetine (CYMBALTA) 30 MG capsule 1 CAPSULE BY MOUTH 2 TIMES A DAY 6 9 Active diazePAM (VALIUM) 5 MG tablet Take 1 tablet (5 mg total) by mouth every 6 (six) hours as needed for anxiety. Take 1 or 2 tabs about an hour before the procedure. 4 tablet 9 Active Additional Information Patient not taking.Reported on 09/23/2019 isosorbide mononitrate (IMDUR) 60 MG 24 hr tablet Take 60 mg by mouth daily. Active metoprolol succinate (TOPROL-XL) 25 MG 24 hr tablet Take 25 mg by mouth daily. Active amLODIPine (NORVASC) 10 MG tablet Take 10 mg by mouth daily. 0 Active atorvastatin (LIPITOR) 80 MG tablet Take 80 mg by mouth daily. 0 Active VANISHPOINT SYRINGE 3 mL 21 gauge x 1 1/2 Syrg USE TO INJECT ONCE PER WEEK 0 Active valsartan (DIOVAN) 160 MG tablet Take 160 mg by mouth daily. 0 Active valsartan (DIOVAN) 80 MG tablet Take 80 mg by mouth daily. 0 Active glucosamine-dawit droitin 500-400 mg Cap Take 1 capsule by mouth 3 (three) times a day. Active ketorolac (ACULAR) 0.5 % ophthalmic solution 2 Active prednisoLONE acetate (PRED FORTE) 1 % ophthalmic suspension 2 Active magnesium 30 mg tablet daily. Active ofloxacin (OCUFLOX) 0.3 % ophthalmic solution 2 Active cholecalciferol (VITAMIN D3) 25 MCG (1,000 unit) tablet daily. Active clopidogrel (PLAVIX) 75 mg tablet clopidogrel 75 mg tablet TAKE 1 TABLET BY MOUTH EVERY DAY 1 Active Active Problems Problem Noted Date Diagnosed Date Hx of repair of left rotator cuff 11/28/2018 Tendinitis of left rotator cuff Left shoulder pain Immunizations Immunization Administration Dates Next Due COVID-19 (Pre-01/07) Sima [...] Answer Date Recorded No 08/13/2022 No 08/13/2022 Reliable internet access [...] 64 05/21/2018 9:08 AM EST Temperature 36.8 C (98.2 F) 02/26/2022 3:04 PM EST Respiratory Rate 18 04/10/2018 2:49 PM EST [...] VACCINES (50+ years) (2 of 2 - PCV20 or PCV21) 06/07/2021 06/07/2020 INFLUENZA VACCINE (#1) 2024 5, 05/09/2010, 02/02/2008 COVID-19 VACCINE (4 - 2024-2 6 season) 2024 09/13/2021, 03/15/2021, 06/25/2020 RSV VACCINE (1 - [...] age to complete this topic MENINGOCOCCAL VACCINES (B) Aged Out N o longer eligible based on patient's age to complete this topic Medical Devices Implanted Type Area Carpenter Supervisor Wooden Ship Device Identifier Shelf Expiration Date Model / Serial / Lot Mesh For Prostate Cancer [place] Suture 4.5mm Arthroscopy Reelx Stt Peek Ss Core Knotless Shapr Tip Expandable Bx/5ea - [id number] Implanted:Qty: 4 on 04/10/2018 by William Price DO at [facility] Left: Shoulder [employer] 11/06/2019 [id number] / / [id number] [place] Suture 5.5mm Size 2 Intraline Titanium Force Fiber - [id number] Implanted:Qty: 1 on 04/10/2018 by William Price DO at [facility] Left: Shoulder [employer] 02/24/2019 [id number] / / [id number] Insurance [email or web address] MEDEX SUPPLEMENT MEDICARE PART A & B [email or web address] MEDEX SUPPLEMENT MEDICARE PART A & B picsell CROSS MEDEX SUPPLEMENT MEDICARE PART A & B [email or web address] MEDEX SUPPLEMENT MEDICARE PART A & B picsell CROSS MEDEX SUPPLEMENT MEDICARE PART A & B picsell CROSS MEDEX SUPPLEMENT MEDICARE PART A & B [email or web address] MEDEX SUPPLEMENT MEDICARE PART A & B picsell CROSS MEDEX SUPPLEMENT MEDICARE PART A & B Member Subscriber Plan / Payer (Ef fective 2015-Present) Name:Avery Blevins Relation to Subscriber:Self Name:Avery Blevins Payer ID:[id number] (NAIC) Type:Indemnity Address: [facility] [id number] [place] [address] MEDICARE PART A & B AIM INSURANCE Advance Directives For more information, please contact: [phone] (9AM - 5PM [facility], Saturday-Saturday) * Full Code (Presumed) (Latest Code Status on File) Date Activated Date Inactivated Comments 04/10/2018 10:20 AM 04/10/2018 5:27 PM Care Teams Traffic Workforce Representative Relationship Specialty Start Date End Date Sandy Leon NP [address] [place] [address] PCP - General Nurse Practitioner 01/15/17 Additional Source Comments The information contained in this document represents components of the legal health record. It is not the complete legal health record.[facility]
--- OUTSIDE RECORDS SUMMARY | 2025-03-12 15:01 | XMS_ITS | Clinical Summary ---
Author Organization [facility] Address [address] [place] [address] Care Team Providers Care Restaurant Bartender Name Role Phone Sandy Leon Primary Care Provider [phone] Allergies No known active allergies Medications acetaminophen [...] 2 - PCV20 or PCV21) 06/07/2021 06/07/2020 Alcohol/Substance Use Screening 03/18/2024 Health Care Proxy Review 03/18/2024 Influenza Vaccine (#1) 2024 COVID-19 Vaccine (2 - 2024-2 6 season) 2024 06/25/2020 RSV Vaccine (60+ years old a nd patients) (1 - 1-dose 75+ series) 2025 Hepatitis B Vaccines Aged Out No long er eligible based on patient's age to complete this topic Insurance [facility] MEDICARE Advance Directives Healthcare Agents on File Name Relationship Healthcare Agent Relationshi p Communication Lili Fernandes Spouse Next of Kin Care Teams Restaurant Bartender Relationship Specialty Start Date End Date Sandy Leon [address] [place] [id number] PCP - General Nurse Practitioner 01/19/21
--- OUTSIDE RECORDS SUMMARY | 2025-03-12 15:01 | XMS_ITS | Encounter Summary ---
Author Organization [facility] Address [address] [place] [address] Care Team Providers Care Grade Setter Name Role Phone Mary Ng MD Primary Care Provider [phone] Encounter Details Date Type Department Care Team (Late st Contact Info) Description 08/16/2024 Lab Requisition [facility] - Main Lab [address] [facility] [place] [address] Mary Ng MD [address] [place] [address] Encounter for other general examination Social History [...] Comments MANUAL DIFFERENTIAL - SYSMEX WAM Routine 08/16/2024 5:33 AM EDT Encounter for other general examination CBC WITH AUTO DIFFERENTIAL Routine 08/16/2024 5:33 AM EDT Encounter for other general examination CBC AND DIFFERENTIAL Routine 08/16/2024 5:33 AM EDT Encounter for other general examination COMPREHENSIVE METABOLIC PANEL Routine 08/16/2024 5:33 AM EDT Encounter for other general examination documented in this encounter Results * (ABNORMAL) Manual differential (08/16/2024 5:33 AM EDT) Neutrophils % 82.0 % LAB HEMETOLOGY METHOD 08/16/2024 9:07 AM [facility] Bands % 1.0 % LAB HEMETOLOGY METHOD 08/16/2024 9:07 AM [facility] Lymphocytes % 5.0 % LAB HEMETOLOGY METHOD 08/16/2024 9:07 AM [facility] Reactive Lymphocyte 3.00 % LAB HEMETOLOGY METHOD 08/16/2024 9:07 AM [facility] Monocytes % 5.0 % LAB HEMETOLOGY METHOD 08/16/2024 9:07 AM [facility] Eosinophils % 1.0 % LAB HEMETOLOGY METHOD 08/16/2024 9:07 AM [facility] Basophils % 2.0 % LAB HEMETOLOGY METHOD 08/16/2024 9:07 AM [facility] Metamyelocytes % 1.0(H) % LAB HEMETOLOGY METHOD 08/16/2024 9:07 AM [facility] Myelocytes % 1.0(H) % LAB HEMETOLOGY METHOD 08/16/2024 9:07 AM [facility] Neutrophils Absolute Manual 14.10(H) 1.50 - 7.00 K/mcL LAB HEMETOLOGY METHOD 08/16/2024 9:07 AM [facility] Bands Absolute Manual 0.17(H) 0.00 - 0.00 K/mcL LAB HEMETOLOGY METHOD 08/16/2024 9:07 AM [facility] Lymphocytes Absolute 0.86(L) 1.00 - 5.00 K/mcL LAB HEMETOLOGY METHOD 08/16/2024 9:07 AM [facility] Reactive Lymph Abs Manual 0.52(H) 0.00 - 0.00 lym LAB HEMETOLOGY METHOD 08/16/2024 9:07 AM [facility] Monocytes Absolute Manual 0.86 0.20 - 1.00 K/mcL LAB HEMETOLOGY METHOD 08/16/2024 9:07 AM EDT [facility] Eosinophils Absolute Manual 0.17 0.00 - 0.50 K/mcL LAB HEMETOLOGY METHOD 08/16/2024 9:07 AM EDT [facility] Basophils Absolute Manual 0.34(H) 0.00 - 0.20 K/mcL LAB HEMETOLOGY METHOD 08/16/2024 9:07 AM EDT [facility] Metamyelocytes Absolute Manual 0.17(H) 0.00 - 0.00 K/mcL LAB HEMETOLOGY METHOD 08/16/2024 9:07 AM EDT [facility] Myelocytes Absolute Manual 0.17(H) 0.00 - 0.00 K/[facility] LAB HEMETOLOGY METHOD 08/16/2024 9:07 AM EDT [facility] Rbc Morphology Present( A) Consistent with indices, Normal for [place] LAB HEMETOLOGY METHOD 08/16/2024 9:07 AM EDT [facility] Platelet Morphology - WAM See Note(A) Normal LAB HEMETOLOGY METHOD 08/16/2024 9:07 AM EDT [facility] Comment:PLT: Large platelets seen Giant platelets seen Polychromasia Present Present( A) (none) LAB HEMETOLOGY METHOD 08/16/2024 9:07 AM EDT [facility] Blood Venous blood specimen / Unknown Venipuncture / Unknown 08/16/2024 5:33 AM EDT 08/16/2024 7:50 AM EDT us Mary Ng MD LAB BLOOD ORDERABLES Final Res ult [facility] [address] [place] [address], [place] [phone] * (ABNORMAL) CBC auto differential (08/16/2024 5:33 AM EDT) [facility] WBC 17.2(H) 4.8 - 10.8 K/mcL LAB HEMETOLOGY METHOD 08/16/2024 9:07 AM [facility] RBC 3.90(L) 4.50 - 5.50 M/mcL LAB HEMETOLOGY METHOD 08/16/2024 9:07 AM [facility] Hemoglobin 11.5(L) 13.5 - 17.5 g/dL LAB HEMETOLOGY METHOD 08/16/2024 9:07 AM [facility] Hematocrit 36.1(L) 42.0 - 54.0 % LAB HEMETOLOGY METHOD 08/16/2024 9:07 AM [facility] MCV 93.5 79.0 - 98.0 FL LAB HEMETOLOGY METHOD 08/16/2024 9:07 AM [facility] MCH 29.8 27.0 - 32.0 pcg LAB HEMETOLOGY METHOD 08/16/2024 9:07 AM [facility] MCHC 31.9(L) 32.0 - 37.0 g/dL LAB HEMETOLOGY METHOD 08/16/2024 9:07 AM [facility] RDW 13.1 11.0 - 15.0 % LAB HEMETOLOGY METHOD 08/16/2024 9:07 AM [facility] Platelets 420(H) 130 - 400 K/mcL LAB HEMETOLOGY METHOD 08/16/2024 9:07 AM [facility] MPV 9.7 7.0 - 11.0 FL LAB HEMETOLOGY METHOD 08/16/2024 9:07 AM [facility] NRBC 0.2 <1.0 % LAB HEMETOLOGY METHOD 08/16/2024 9:07 AM [facility] NRBC Absolute 0.03 <0.10 K/mcL LAB HEMETOLOGY METHOD 08/16/2024 9:07 AM [facility] Blood Venous blood specimen / Unknown Venipuncture / Unknown 08/16/2024 5:33 AM EDT 08/16/2024 7:50 AM EDT us Mary Ng MD LAB BLOOD ORDERABLES Final Res ult [facility] [address] [place] [address], [place] [phone] * (ABNORMAL) Comprehensive metabolic panel (08/16/2024 5:33 AM EDT) Sodium 136 133 - 145 mmol/L LAB CHEMISTRY METHOD 08/16/2024 8:51 AM [facility] Potassium 4.3 3.5 - 5.5 mmol/L LAB CHEMISTRY METHOD 08/16/2024 8:51 AM [facility] Chloride 103 96 - 110 mmol/L LAB CHEMISTRY METHOD 08/16/2024 8:51 AM [facility] CO2 26 21 - 32 mmol/L LAB CHEMISTRY METHOD 08/16/2024 8:51 AM [facility] Anion Gap 7 3 - 11 LAB CHEMISTRY METHOD 08/16/2024 8:51 AM [facility] Glucose 78 70 - 100 mg/dL LAB CHEMISTRY METHOD 08/16/2024 8:51 AM [facility] BUN 26(H) 5 - 25 mg/dL LAB CHEMISTRY METHOD 08/16/2024 8:51 AM [facility] Creatinine 0.84 0.70 - 1.30 mg/dL LAB CHEMISTRY METHOD 08/16/2024 8:51 AM [facility] eGFR 92 >=60 mL/min/1. 73m2 LAB CHEMISTRY METHOD 08/16/2024 8:51 AM EDT [facility] Comment:Calculation based on the Chronic Kidney Disease Epidemiology Collaboration (CKD-EPI) equation refit without adjustment for race. BUN/Creatinine Ratio 31.0 LAB CHEMISTRY METHOD 08/16/2024 8:51 AM [facility] Calcium 8.7 8.5 - 10.5 mg/dL LAB CHEMISTRY METHOD 08/16/2024 8:51 AM [facility] AST (SGOT) 173(H) 10 - 42 unit/L LAB CHEMISTRY METHOD 08/16/2024 8:51 AM [facility] ALT (SGPT) 136(H) 10 - 60 unit/L LAB CHEMISTRY METHOD 08/16/2024 8:51 AM [facility] Alkaline Phosphatase 187(H) 42 - 121 unit/L LAB CHEMISTRY METHOD 08/16/2024 8:51 AM [facility] Total Protein 6.1 6.0 - 8.0 g/dL LAB CHEMISTRY METHOD 08/16/2024 8:51 AM [facility] Albumin 2.6(L) 3.2 - 5.0 g/dL LAB CHEMISTRY METHOD 08/16/2024 8:51 AM [facility] Total Bilirubin 0.7 0.0 - 1.4 mg/dL LAB CHEMISTRY METHOD 08/16/2024 8:51 AM [facility] Blood Venous blood specimen / Unknown Venipuncture / Unknown 08/16/2024 5:33 AM EDT 08/16/2024 7:50 AM EDT us Mary Ng MD LAB BLOOD ORDERABLES Final Res ult [facility] [address] [place] [address], [place] [phone] documented in this encounter Visit Diagnoses Diagnosis Encounter for other general examination documented in this encounter Care Teams Grade Setter Relationship Specialty Start Date End Date Mary Ng MD [address] [place] [phone] PCP - General Internal Medicine 08/14/24 documented as of this encounter
--- OUTSIDE RECORDS SUMMARY | 2025-03-12 15:01 | XMS_ITS | Encounter Summary ---
Author Organization [employer] [facility] Address [address] [place] [address] Care Team Providers Care Wrapper Stemmer Operator Name Role Phone Mary Ng MD Primary Care Provider [phone] Encounter Details Date Type Department Care Team (Late st Contact Info) Description 08/22/2024 Lab Requisition [facility] - Main Lab [address] [facility] [place] [address] Mary Ng MD [address] [place] [address] Encounter for other general examination Social History [...] Procedure Name Priority Date/Time Associated Diagnosis Comments CBC WITH AUTO DIFFERENTIAL Routine 08/22/2024 6:50 AM EDT Encounter for other general examination CBC AND DIFFERENTIAL Routine 08/22/2024 6:50 AM EDT Encounter for other general examination documented in this encounter Results * (ABNORMAL) CBC auto differential (08/22/2024 6:50 AM EDT) WBC 12.4(H) 4.8 - 10.8 K/[facility] LAB HEMETOLOGY METHOD 08/22/2024 10:55 AM EDT [facility] RBC 4.00(L) 4.50 - 5.50 M/[facility] LAB HEMETOLOGY METHOD 08/22/2024 10:55 AM EDT [facility] Hemoglobin 11.8(L) 13.5 - 17.5 g/dL LAB HEMETOLOGY METHOD 08/22/2024 10:55 AM [facility] Hematocrit 38.3(L) 42.0 - 54.0 % LAB HEMETOLOGY METHOD 08/22/2024 10:55 AM [facility] MCV 94.8 79.0 - 98.0 FL LAB HEMETOLOGY METHOD 08/22/2024 10:55 AM [facility] MCH 29.2 27.0 - 32.0 pcg LAB HEMETOLOGY METHOD 08/22/2024 10:55 AM [facility] MCHC 30.8(L) 32.0 - 37.0 g/dL LAB HEMETOLOGY METHOD 08/22/2024 10:55 AM [facility] RDW 13.3 11.0 - 15.0 % LAB HEMETOLOGY METHOD 08/22/2024 10:55 AM [facility] Platelets 577(H) 130 - 400 K/mcL LAB HEMETOLOGY METHOD 08/22/2024 10:55 AM [facility] MPV 9.8 7.0 - 11.0 FL LAB HEMETOLOGY METHOD 08/22/2024 10:55 AM [facility] NRBC 0.0 <1.0 % LAB HEMETOLOGY METHOD 08/22/2024 10:55 AM [facility] NRBC Absolute 0.00 <0.10 K/mcL LAB HEMETOLOGY METHOD 08/22/2024 10:55 AM [facility] Neutrophils Relative 75.8 % LAB HEMETOLOGY METHOD 08/22/2024 10:55 AM [facility] Lymphocytes Relative 11.6 % LAB HEMETOLOGY METHOD 08/22/2024 10:55 AM [facility] Monocytes Relative 5.9 % LAB HEMETOLOGY METHOD 08/22/2024 10:55 AM EDT [facility] Eosinophils Relative 2.3 % LAB HEMETOLOGY METHOD 08/22/2024 10:55 AM EDT [facility] Basophils Relative 0.9 % LAB HEMETOLOGY METHOD 08/22/2024 10:55 AM EDT [facility] Immature Granulocytes Relative 3.5 % LAB HEMETOLOGY METHOD 08/22/2024 10:55 AM EDT [facility] Neutrophils Absolute 9.42(H) 1.50 - 7.00 K/mcL LAB HEMETOLOGY METHOD 08/22/2024 10:55 AM EDT [facility] Lymphocytes Absolute 1.44 1.00 - 5.00 K/mcL LAB HEMETOLOGY METHOD 08/22[facility]2024 10:[facility] Monocytes Absolute 0.74 0.20 - 1.00 K/mcL LAB HEMETOLOGY METHOD 08/22/2024 10:55 AM EDT [facility] Eosinophils Absolute 0.29 0.00 - 0.50 K/mcL LAB HEMETOLOGY METHOD 08/22/2024 10:55 AM EDT [facility] Basophils Absolute 0.11 0.00 - 0.20 K/mcL LAB HEMETOLOGY METHOD 08/22/2024 10:55 AM EDT [facility] Immature Granulocytes Absolute 0.44(H) 0.00 - 0.03 K/mcL LAB HEMETOLOGY METHOD 08/22/2024 10:55 AM EDT [facility] Blood Venous blood specimen / Unknown Venipuncture / Unknown 08/22/2024 6:50 AM EDT 08/22/2024 9:58 AM EDT us Mary Ng MD LAB BLOOD ORDERABLES Final Res ult [facility] [address] [place] [address], documented in this encounter Visit Diagnoses Diagnosis Encounter for other general examination documented in this encounter Care Teams Wrapper Stemmer Operator Relationship Specialty Start Date End Date Mary Ng MD [address] [place] [phone] PCP - General Internal Medicine 08/14/24 documented as of this encounter
--- OUTSIDE RECORDS SUMMARY | 2025-03-12 15:01 | XMS_ITS | Encounter Summary ---
Author Organization [facility] Address [address] [place] [address] Phone Care Team Providers Care Enterprise Application Analyst Name Role Phone Sandy Leon LIQUEFACTION PLANT OPERATOR Primary Care Provider Encounter Details Date Type Department Care Team (Late st Contact Info) Description 04/10/2018 Procedure Pass OR Admitting Dept - Virtual Department [address] [place] [address] Social History Tobacco Use Types Packs/Day Years [...] on filedocumented in this encounter Care Teams Enterprise Application Analyst Relationship Specialty Start Date End Date Sandy Leon, LIQUEFACTION PLANT OPERATOR [address] [place] [phone] PCP - General Nurse Practitioner 01/15/17 documented as of this encounter Additional Source Comments The information contained in this document represents components of the legal health record. It is not the complete legal health record.[facility]
--- OUTSIDE RECORDS SUMMARY | 2025-03-12 15:01 | XMS_ITS | Encounter Summary ---
Author Organization [facility] Address [address] [place] [address] Phone Care Team Providers Care Tobacco Buyer Name Role Phone Sandy Leon LABEL MACHINE OPERATOR Primary Care Provider [phone] Encounter Details Date Type Department Care Team (Late st Contact Info) Description 12/15/2018 Ancillary Orders [facility] [address] [place] [address] William Price, DO [address] [facility], [facility] [place] [address] [email or web address] Left shoulder pain, unspecified chronicity Social History [...] encounter note for this date of service. us William Price DO IMG XR UPPER EXTREMITY Yaritza l Result documented in this encounter Visit Diagnoses Diagnosis Left shoulder pain, unspecified chronicity Left shoulder pain, unspecified chronicity documented in this encounter Care Teams Tobacco Buyer Relationship Specialty Start Date End Date Sandy Leon, RICH [address] [place] [id number] PCP - General Nurse Practitioner 01/15/17 documented as of this encounter Additional Source Comments The information contained in this document represents components of the legal health record. It is not the complete legal health record.[facility]
--- OUTSIDE RECORDS SUMMARY | 2025-03-12 15:01 | XMS_ITS | Encounter Summary ---
Author Organization [employer] Address [address] [place] [address] Care Team Providers Care Aircraft Engine Mechanic Name Role Phone Mary Ng MD Primary Care Provider [phone] Encounter Details Date Type Department Care Team (Late st Contact Info) Description 08/15/2024 Lab Requisition [facility] - Main Lab [address] [facility] [place] [address] Mary Ng MD [address] [place] [id number] Dysuria Social History Tobacco Use Types Packs/Day Years [...] Procedure Name Priority Date/Time Associated Diagnosis Comments URINALYSIS WITH REFLEX MICROSCOPIC AND CULTURE Routine 08/15/2024 12:30 AM EDT Dysuria SARMIENTO URINE CULTURE TUBE Routine 08/15/2024 12:30 AM EDT Dysuria URINALYSIS WITH REFLEX MICROSCOPIC AND CULTURE Routine 08/15/2024 12:30 AM EDT Dysuria CULTURE URINE Routine 08/15/2024 12:30 AM EDT Dysuria documented in this encounter Results * (ABNORMAL) Culture urine (08/15/2024 12:30 AM EDT) Culture, Urine >100,000 CFU/mL Pseudomonas aeruginosa(A) LORI 08/17/2024 10:07 AM EDT [facility]) [facility] Urine Urine specimen obtained by clean catch procedure / Unknown Non-blood Collection / Unknown 08/15/2024 12:30 AM EDT 08/15/2024 11:19 AM EDT Narrative Organism Antibiotic Method Susceptibility Pseudomonas aeruginosa Piperacillin/Tazobactam LORI 16 ug/ml: Susceptible Pseudomonas aeruginosa Ceftazidime LORI 2 ug/ml: Susceptible Pseudomonas aeruginosa Cefepime LORI 4 ug/ml: Susceptible Pseudomonas aeruginosa Meropenem LORI 0.5 ug/ml: Susceptible Pseudomonas aeruginosa Amikacin LORI 4 ug/ml: Susceptible Pseudomonas aeruginosa Ciprofloxacin LORI 0.5 ug/ml: Susceptible Pseudomonas aeruginosa Levofloxacin LORI 1 ug/ml: Susceptible us Mary Ng MD LAB MICROBIOLOGY - GENERAL ORD ERABLES Final Result [facility] [address] [place] [address], [place] [phone] * (ABNORMAL) Urinalysis with reflex microscopic and culture (08/15/2024 12:30 AM EDT) Specific [place] Urine 1.026 1.003 - 1.030 LAB URINALYSIS - AUTOMATED METHOD 08/15/2024 11:19 AM [facility] pH, Urine 5.5 5.0 - 8.0 pH LAB URINALYSIS - AUTOMATED METHOD 08/15/2024 11:19 AM [facility] Leukocytes, Urine Moderate(A) Negative LAB URINALYSIS - AUTOMATED METHOD 08/15/2024 11:19 AM [facility] Nitrite, Urine Positive(A) Negative LAB URINALYSIS - AUTOMATED METHOD 08/15/2024 11:19 AM [facility] Protein, Urine 30(A) <=Trace mg/dL LAB URINALYSIS - AUTOMATED METHOD 08/15/2024 11:19 AM [facility] Glucose, Urine Negative Negative mg/dL LAB URINALYSIS - AUTOMATED METHOD 08/15/2024 11:19 AM [facility] Ketones, Urine Trace(A) Negative mg/dL LAB URINALYSIS - AUTOMATED METHOD 08/15/2024 11:19 AM [facility] Urobilinogen , Urine 1.0 0.2 - 1.0 mg/dL LAB URINALYSIS - AUTOMATED METHOD 08/15/2024 11:19 AM [facility] Bilirubin, Urine Negative Negative LAB URINALYSIS - AUTOMATED METHOD 08/15/2024 11:19 AM [facility] Blood, Urine Small(A) Negative LAB URINALYSIS - AUTOMATED METHOD 08/15/2024 11:19 AM [facility] RBC, Urine 5.7(H) 0 - 4 /HPF LAB URINALYSIS - AUTOMATED METHOD 08/15/2024 11:19 AM [facility] WBC, Urine 54.2(H) 0 - 4 /HPF LAB URINALYSIS - AUTOMATED METHOD 08/15/2024 11:19 AM [facility] Squamous Epithelial, Urine 8 0 - 60 /LPF LAB URINALYSIS - AUTOMATED METHOD 08/15/2024 11:19 AM [facility] Bacteria, Urine Moderate(A) Negative /HPF LAB URINALYSIS - AUTOMATED METHOD 08/15/2024 11:19 AM [facility] Hyaline Casts, Urine 1.2 0 - 3 /LPF LAB URINALYSIS - AUTOMATED METHOD 08/15/2024 11:19 AM [facility] Urine Urine specimen obtained by clean catch procedure / Unknown Non-blood Collection / Unknown 08/15/2024 12:30 AM EDT 08/15/2024 10:25 AM EDT us Mary Ng MD LAB URINE ORDERABLES Final Res ult [facility] [address] [place] [address], * Sarmiento urine culture tube (08/15/2024 12:30 AM EDT) Extra Tube Hold for add-ons. 08/15/2024 12:01 PM EDT [facility] Comment:Auto resulted. Urine Urine specimen obtained by clean catch procedure / Unknown Non-blood Collection / Unknown 08/15/2024 12:30 AM EDT 08/15/2024 10:25 AM EDT us Mary Ng MD LAB URINE ORDERABLES Final Res ult [facility] [address] [place] [address], documented in this encounter Visit Diagnoses Diagnosis Dysuria documented in this encounter Care Teams Aircraft Engine Mechanic Relationship Specialty Start Date End Date Mary Ng MD [address] [place] [phone] PCP - General Internal Medicine 08/14/24 documented as of this encounter
== END 2025-03-12 14:58 | disposition home or self-care (01) ==
LOC: HO.BBR 14:57
PROVIDERS: Visit Provider Urology
DX: D75.1 Secondary polycythemia (principal)
CPT/HCPCS: 85018